=== PATIENT | male | born 1955 | race Caucasian/White ===

== ENCOUNTER 2020-12-23 09:21 | Outpatient (CLI) | payer BC, SELFPAY ==
--- NOTE | 2020-12-23 09:46 | ECG_ITS ---
Measurements Intervals [place] Rate: 65 P: 47 [place]: 140 QRS: -39 QRSD: 118 T: 56 QT: 404 QTc: 421 Interpretive Statements SINUS RHYTHM VENTRICULAR PREMATURE COMPLEXES LEFT AXIS DEVIATION INTRAVENTRICULAR CONDUCTION DELAY BORDERLINE ST-T WAVE ABNORMALITY- HIGH LATERAL LEADS BORDERLINE ECG Electronically Signed On 12-23-2020 11:16:06 SALES SUPPORT ENGINEER by Kt Simmons D.O.
[2020-12-23 10:03] LABS: Hematocrit 50.1 % (42.0-52.0); Hemoglobin 16.9 g/dL (14.0-18.0); Mean Corpuscular HGB Conc 33.7 g/dl (32-36); Mean Corpuscular Hemoglobin 32.8 pg (26-34); Mean Corpuscular Volume 97.3 fl (80-100); Platelet Count Result 186 k/mm3 (150-375); Red Blood Count 5.15 M/mm3 (4.6-6.20); Red Cell Distribution Width 15.2 % (11.5-14.5); White Blood Count 4.9 K/mm3 (4.5-10.0)
[2020-12-23 10:13] LABS: Alanine Aminotransferase 34 U/L (4-50); Alkaline Phosphatase 48 U/L (38-126); Anion Gap 4 mmol/L (8-16); Aspartate Amino Transferase 37 U/L (17-59); Bilirubin,Total 0.5 mg/dL (0.2-1.3); Blood Urea Nitrogen 22 mg/dL (9-20); Calcium 9.2 mg/dL (8.4-10.2); Carbon Dioxide 32 mmol/L (22-30); Chloride 108 mmol/L (98-107); Cholesterol 183 mg/dL (0-200); Estimated Glomerular Filt Rate 55; Glucose 103 mg/dL (75-110); HDL Direct 50 mg/dL; Potassium 4.4 mmol/L (3.4-5.0); Sodium 144 mmol/L (137-145); Triglycerides 104 mg/dL (<150)
[2020-12-23 10:16] LABS: Rheumatoid Factor < 8.6 IU/ML (<12)
[2020-12-23 10:24] LABS: LDL Cholesterol Direct 105 mg/dL
[2020-12-23 10:34] LABS: Erythrocyte Sedimentation Rate 1 mm/hr (0-20)
[2020-12-23 10:43] LABS: Prostate Specific Antigen 0.9 ng/mL (< OR = 4.0)
== END 2020-12-23 09:22 | disposition home or self-care (01) ==
PROVIDERS: PCP Physician Assistant; Visit Provider Physician Assistant
DX: Z00.00 Encounter for general adult medical examination without abnormal findings (principal); I49.9 Cardiac arrhythmia, unspecified; I10 Essential (primary) hypertension; M25.50 Pain in unspecified joint; Z12.5 Encounter for screening for malignant neoplasm of prostate
CPT/HCPCS: 36415; 80053; 80061; 84153; 84443; 85027; 85652; 86430; 93005; G0103

== ENCOUNTER 2021-06-04 10:57 | Outpatient (CLI) | payer BC, SELFPAY ==
--- NOTE | ~2021-06-04 | XR_ITS ---
XR foot RT min 3V DATE: 06/04/2021 11:32 INDICATION: Generalized right foot pain. No injury. TECHNIQUE: 4 views COMPARISON: None FINDINGS: Prominent plantar and posterior calcaneal enthesopathy. There is osteoarthritis at the first metatarsophalangeal joint. There is mild osteoarthritis at the f ifth metatarsophalangeal joint. There is hallux valgus and bunion deformity. No fracture or dislocation, periosteal reaction or bone destruction is detected. Arterial calcifications noted, particularly at the posterior tibial artery. IMPRESSION: Prominent plantar and posterior calcaneal enthesopathy Hallux valgus and bunion deformity Osteoarthritis Reviewed, dictated and finalized at location A.
== END 2021-06-04 10:58 | disposition home or self-care (01) ==
LOC: ANHIMG 11:22
PROVIDERS: PCP Physician Assistant; Visit Provider Physician Assistant
DX: M79.671 Pain in right foot (principal); M77.31 Calcaneal spur, right foot; M20.11 Hallux valgus (acquired), right foot; M21.611 Bunion of right foot; M19.071 Primary osteoarthritis, right ankle and foot
CPT/HCPCS: 73630

== ENCOUNTER 2021-08-13 08:20 | Outpatient (CLI) | payer BC, SELFPAY ==
--- NOTE | ~2021-08-13 | NM_ITS ---
EXAMINATION: NM lavinia stress w perfusion DATE: 08/13/2021 11:10 INDICATION: Dyspnea on exertion TECHNIQUE: Rest images were obtained following intravenous administration of 10.3 mCi Tc99m tetrofosm in (Myoview). The patient was infused intravenously with Lexiscan (Regadenoson). Then, 31.21 mCi Tc99 m tetrofosmin (Myoview) was administered intravenously, and stress images were obtained in supine pos ition. Additional post stress imaging was obtained in prone position. Data was reconstructed into missael rt axis and horizontal and vertical long axis SPECT images. Gated SPECT images were also obtained. COMPARISON: None. FINDINGS: Nonreversible severe perfusion defect consistent with infarct at the apex. Moderate severit y partially reversible perfusion defect consistent with ischemia superimposed over infarct involving the apical septal, apical superior, mid anteroseptal and mid anterior segments. The ischemia extends additionally into noninfarcted segments including the apical lateral, apical inferior and mid inferio r septal segments. There is moderate enlargement of the left ventricle with calculated end-diastolic volume of 243 mL. There is diffuse hypokinesis throughout the left ventricle with dyskinesis at the a pex. Moderate to severely decreased left ventricular ejection fraction measuring 24%. IMPRESSION: 1. Large region of ischemia partially superimposed over a moderate-sized region of infarct involving primarily the left anterior descending coronary artery vascular distribution. 2. Moderate left ventricular enlargement and diffuse hypokinesis with apical dyskinesis resulting in a moderate to severely decreased left ventricular ejection fraction measuring 24%. Reviewed, dictated and finalized at location A. IMPRESSION: 1. Large region of ischemia partially superimposed over a moderate-sized region of infarct involving primarily the left anterior descending coronary artery va scular distribution. 2. Moderate left ventricular enlargement and diffuse hypokinesis with apical dy skinesis resulting in a moderate to severely decreased left ventricular ejectio n fraction measuring 24%.
--- NOTE | 2021-08-13 08:45 | EST_ITS ---
Patient Info Name: Sam Colby Age: 66 years : 1955 Gender: Male Ht: 73 in Wt: 244 lbs BSA: 2.42 m2 HR: 77 bpm BP: 142 / 104 mmHg Heart Rhythm: Sinus Rhythm Exam Date: 08/13/2021 9:34 AM Exam Location: [facility] Stress Patient Status: Outpatient Admit Date: 08/13/2021 Staff Ordering Physician: Emilio Lamb DO Attending Provider: Emilio Lamb DO Referring Physician: Rudy Cruz MD; Exercise Technologist: Olga Lidia Lugo CT Exercise Physician: Kt Simmons DO Exam Type: CA stress lavinia w NM Study Info Indications R07.9 - Chest pain, unspecified R06.02 - Shortness of breath A regadenoson stress test was performed. Summary 1. 1. Negative lexiscan stress test for ischemic ST changes by ECG criteria. 2. 2. Frequent ventricular ectopics. 3. 3. Baseline hypertension. 4. 4. Nuclear scan to follow and will be reported separately. Please correlate with it. 5. 5. Patient informed of the above results. Protocol: Lexiscan Stress ECG Details Stage: REST Duration (min): 0 min : 57 sec HR (bpm): 63 SBP (mmHg): 142 DBP (mmHg): 104 Stage: REST Duration (min): 8 min : 31 sec HR (bpm): 70 SBP (mmHg): 142 DBP (mmHg): 104 Stage: STAGE 1 Duration (min): 1 min : 0 sec HR (bpm): 77 SBP (mmHg): 142 DBP (mmHg): 104 Stage: RECOVERY Duration (min): 1 min : 0 sec HR (bpm): 88 SBP (mmHg): 192 DBP (mmHg): 76 Stage: RECOVERY Duration (min): 2 min : 0 sec HR (bpm): 81 SBP (mmHg): 192 DBP (mmHg): 76 Stage: RECOVERY Duration (min): 3 min : 0 sec HR (bpm): 79 SBP (mmHg): 192 DBP (mmHg): 76 Stage: RECOVERY Duration (min): 3 min : 51 sec HR (bpm): 75 SBP (mmHg): 154 DBP (mmHg): 91 Rest HR: 70 bpm Peak HR: 91 bpm Rest Sys BP: 142 mmHg Peak Sys BP: 192 mmHg Max Pred HR: 152 bpm % Max Pred HR: 60 % Target HR: 129 bpm Max RPP: 17,472 bpm*mmHg Termination Reason: Completed protocol Cardiac Symptoms: Shortness of breath Total Time: 1 min : 0 sec Rest Sawyer BP: 104 mmHg Peak Sawyer BP: 76 mmHg Total Dose: 0.4 mg Resting ECG Sinus rhythm with frequent PVC's, cannot r/o septal infarct, age indeterminate. Stress ECG No ST changes. Arrhythmias None. Report Signatures
== END 2021-08-13 08:21 | disposition home or self-care (01) ==
PROVIDERS: PCP Physician Assistant; Referring Provider Physical Medicine & Rehabilitation Pain Medicine; Visit Provider Internal Medicine
DX: R06.02 Shortness of breath (principal); R07.9 Chest pain, unspecified
CPT/HCPCS: 78452; 93017; A9502; J2785

== ENCOUNTER 2021-08-15 12:53 | Outpatient (CLI) | payer BC, SELFPAY ==
[2021-08-15 13:13] LABS: Hematocrit 49.7 % (42.0-52.0); Hemoglobin 17.3 g/dL (14.0-18.0); Mean Corpuscular HGB Conc 34.8 g/dl (32-36); Mean Corpuscular Hemoglobin 33.4 pg (26-34); Mean Corpuscular Volume 95.9 fl (80-100); Mean Platelet Volume 9.6 fl (7.4-10.4); Platelet Count Result 190 k/mm3 (150-375); Red Blood Count 5.18 M/mm3 (4.6-6.20); Red Cell Distribution Width 13.7 % (11.5-14.5); White Blood Count 6.2 K/mm3 (4.5-10.0)
[2021-08-15 13:28] LABS: INR 0.9; Prothrombin Time 12.5 Seconds (11.1-14.7)
[2021-08-15 13:29] LABS: Partial Thromboplastin Time 26.2 SECONDS (22.3-36.8)
[2021-08-15 13:30] LABS: Anion Gap 6 mmol/L (8-16); Blood Urea Nitrogen 18 mg/dL (9-20); Calcium 9.8 mg/dL (8.4-10.2); Carbon Dioxide 27 mmol/L (22-30); Chloride 104 mmol/L (98-107); Estimated Glomerular Filt Rate 55; Glucose 100 mg/dL (65-110); Potassium 4.6 mmol/L (3.4-5.0); Sodium 137 mmol/L (137-145)
== END 2021-08-15 12:54 | disposition home or self-care (01) ==
PROVIDERS: PCP Physician Assistant
DX: I25.10 Atherosclerotic heart disease of native coronary artery without angina pectoris (principal)
CPT/HCPCS: 36415; 80048; 85027; 85610; 85730

== ENCOUNTER 2021-10-27 07:15 | Outpatient (RCR) | payer BC, SELFPAY ==
[2021-10-21 16:01] VITALS: PULSE 63
== END 2021-11-17 15:20 | disposition home or self-care (01) ==
LOC: ANHCPREHAB 07:15
PROVIDERS: PCP Physician Assistant
DX: Z95.1 Presence of aortocoronary bypass graft (principal)
CPT/HCPCS: 93798

== ENCOUNTER → 2022-05-30 11:06 | Outpatient (CLI) | payer MEDICARE, SELFPAY ==
--- NOTE | ~2022-05-30 | MR_ITS ---
EXAMINATION: MR cervical spine wo con DATE: 05/30/2022 12:08 INDICATION: Cervical radiculopathy. Chronic neck pain. TECHNIQUE: Magnetic resonance imaging (MRI) of the cervical spine was performed without intravenous c ontrast. Sequences included sagittal T2-weighted FSE, sagittal T2-weighted FS FSE, sagittal T1-weight ed FSE, axial MERGE, and axial T2-weighted FSE. COMPARISON: None FINDINGS: There is kyphosis of cervical spine. There is 4 degrees dextrocurvature of cervical spine. There is 3 mm anterolisthesis of C4 on C5 and C5 on C6. Vertebral body heights are normal. There is m ildly decreased disc height at C2-C3 with interbody fusion. There is mildly decreased disc height at C4-C5. There is mildly decreased disc height at C5-C6 and severely decreased disc height at C6-C7 wit h interbody fusion. There is severely decreased disc height at C7-T1 with endplate remodeling. The sp inal cord signal intensity is normal. The following disc levels are specifically discussed: C2-C3: The disc does not extend beyond the endplate margin. There is ankylosis of the uncovertebral j oints with mild hypertrophy. There is moderate right facet joint osteoarthritis. There is ankylosis o f left facet joint with mild hypertrophy There is no neural foraminal stenosis. There is no central c anal stenosis. C3-C4: The disc is bulging. There is mild bilateral uncovertebral joint osteoarthritis. There is giovanni re bilateral facet joint osteoarthritis. There is mild bilateral neural foraminal stenosis. There is mild central canal stenosis. C4-C5: The disc is bulging. There is mild right and moderate left uncovertebral joint osteoarthritis. There is moderate right and severe left facet joint osteoarthritis. There is mild right and moderate left neural foraminal stenosis. There is mild central canal stenosis with ventral indentation of the spinal cord. C5-C6: The disc does not extend beyond the endplate margin. There is mild bilateral uncovertebral gabi nt hypertrophy. There is moderate left facet joint osteoarthritis. There is mild left neural foramina l stenosis. There is mild central canal stenosis with ventral indentation of the spinal cord. C6-C7: The disc does not extend beyond the endplate margin. There is mild bilateral uncovertebral gabi nt hypertrophy. There is mild bilateral facet joint osteoarthritis. There is mild bilateral neural fo raminal stenosis. There is no central canal stenosis. C7-T1: The disc is bulging. There is severe bilateral uncovertebral joint osteoarthritis. There is se wilfred right and moderate left facet joint osteoarthritis. There is moderate bilateral neural foraminal stenosis. There is mild central canal stenosis. IMPRESSION: 1. Severe cervical spondylosis. 2. Interbody fusion at C2-C3, C5-C6, and C6-C7. Reviewed, dictated and finalized at location A.
== END ==
PROVIDERS: PCP Physician Assistant; Visit Provider Physical Medicine & Rehabilitation
DX: M47.22 Other spondylosis with radiculopathy, cervical region (principal); Z98.1 Arthrodesis status
CPT/HCPCS: 72141

== ENCOUNTER 2022-06-11 10:32 | Outpatient (CLI) | payer MEDICARE, SELFPAY ==
[2022-06-11 11:11] LABS: Alanine Aminotransferase 48 U/L (6-50); Albumin Level 4.5 g/dL (3.5-5.1); Alkaline Phosphatase 77 U/L (38-126); Anion Gap 8 mmol/L (8-16); Aspartate Amino Transferase 39 U/L (17-59); Blood Urea Nitrogen 20 mg/dL (9-20); Calcium 9.4 mg/dL (8.4-10.2); Carbon Dioxide 29 mmol/L (22-30); Chloride 102 mmol/L (98-107); Cholesterol 153 mg/dL (0-200); Estimated Glomerular Filt Rate 60; Glucose 112 mg/dL (65-110); HDL Direct 44 mg/dL; Potassium 4.6 mmol/L (3.4-5.0); Sodium 139 mmol/L (137-145); Triglycerides 162 mg/dL (<150)
[2022-06-11 11:18] LABS: LDL Cholesterol Direct 63 mg/dL
[2022-06-11 11:23] LABS: Basophils Absolute Auto 0.1 K/mm3 (0.0-0.1); Basophils Percent Auto 0.7 % (0.2-1.2); Eosinophils Absolute Auto 0.2 K/mm3 (0-0.3); Eosinophils Percent Auto 2.8 % (0-4.4); Hematocrit 48.6 % (42.0-52.0); Hemoglobin 16.8 g/dL (14.0-18.0); Immature Granulocyte Absolute 0.01 K/mm3 (0.00-0.031); Immature Granulocyte Percent A 0.1 % (0-0.5); Lymphocytes Absolute Auto 2.85 K/mm3 (0.9-3.2); Mean Corpuscular HGB Conc 34.6 g/dl (32-36); Mean Corpuscular Hemoglobin 34.3 pg (26-34); Mean Corpuscular Volume 99.2 fl (80-100); Mean Platelet Volume 10.1 fl (7.4-10.4); Monocytes Absolute Auto 0.8 K/mm3 (0.1-0.6); Monocytes Percent Auto 10.4 % (2.6-8.5); Neutrophils Absolute Auto 3.6 K/mm3 (1.3-6.7); Platelet Count Result 220 k/mm3 (150-375); Red Cell Distribution Width 13.4 % (11.5-14.5); White Blood Count 7.5 K/mm3 (4.5-10.0)
[2022-06-11 14:04] LABS: Folic Acid 19.1 ng/mL (2.76->20)
== END 2022-06-11 10:33 | disposition home or self-care (01) ==
LOC: ANHLAB 10:34
PROVIDERS: PCP Physician Assistant; Visit Provider Physician Assistant
DX: R53.83 Other fatigue (principal); E78.5 Hyperlipidemia, unspecified; Z12.5 Encounter for screening for malignant neoplasm of prostate
CPT/HCPCS: 36415; 80053; 80061; 82607; 82746; 84153; 84443; 85025; G0103

== ENCOUNTER 2022-07-20 10:32 | Outpatient (CLI) | payer MEDICARE, SELFPAY ==
--- NOTE | ~2022-07-20 | XR_ITS ---
XR hip RT min 2V 07/20/2022 10:48 Indication: Right hip pain Procedure: 2 views right hip Comparison: No prior studies for comparison. Findings: There is moderate osteoarthritis of the right hip. No fracture, subluxation or dislocation. No significant soft tissue abnormality. No foreign bodies. Impression: 1: Moderate osteoarthritis of the right hip. Reviewed, dictated and finalized at location B. Impression: 1: Moderate osteoarthritis of the right hip.
== END 2022-07-20 10:33 | disposition home or self-care (01) ==
LOC: ANHIMG 10:37
PROVIDERS: PCP Physician Assistant; Visit Provider Physician Assistant
DX: M16.11 Unilateral primary osteoarthritis, right hip (principal)
CPT/HCPCS: 73502

== ENCOUNTER 2022-09-11 10:13 | Outpatient (CLI) | payer MEDICARE, SELFPAY ==
--- NOTE | ~2022-09-11 | NM_ITS ---
EXAMINATION: NM lavinia stress w perfusion DATE: 09/11/2022 13:41 INDICATION: Old myocardial infarction. TECHNIQUE: Rest images were obtained following intravenous administration of 9 mCi Tc99m tetrofosmin (Myoview). The patient was infused intravenously with Lexiscan (regadenoson). Then, 27 mCi Tc99m tetr ofosmin (Myoview) was administered intravenously, and stress images were obtained. Data was reconstru cted into short axis and horizontal and vertical long axis SPECT images. Gated SPECT images were also obtained. COMPARISON: Myocardial perfusion imaging 08/13/2021 FINDINGS: There is no definite reversible or fixed perfusion abnormality to suggest ischemia or infar ction. There is no segmental wall motion abnormality. Left ventricular ejection fraction measures 3 7%. IMPRESSION: 1. No definite ischemia or infarct. 2. Global hypokinesis with left ventricular ejection fraction measuring 37%. Reviewed, dictated and finalized at location A. RVISOR CD AREA
--- NOTE | 2022-09-11 10:33 | EST_ITS ---
Patient Info Name: Sam Colby Age: 67 years : 1955 Gender: Male Ht: 73 in Wt: 240 lbs BSA: 2.40 m2 Exam Date: 09/11/2022 11:12 AM Exam Location: [facility] Stress Patient Status: Outpatient Admit Date: 09/11/2022 Staff Ordering Physician: Danny Bai PA-C Attending Provider: Danny Bai PA-C Exercise Technologist: Jacki May RDCS Exam Type: CA stress lavinia w NM Study Info Indications I25.2 - OLD MYOCARDIAL INFARCTION A regadenoson stress test was performed. Summary 1. 1. Negative lexiscan stress test for ischemic ST changes by ECG criteria. 2. 2. Stable hemodynamics throughout the test. 3. 3. Nuclear scan to follow and will be reported separately. Please correlate with it. 4. 4. Patient informed of the above results. Protocol: Lexiscan Stress ECG Details Stage: REST Duration (min): 0 min : 46 sec HR (bpm): 68 SBP (mmHg): 137 DBP (mmHg): 99 Stage: REST Duration (min): 17 min : 32 sec HR (bpm): 67 SBP (mmHg): 137 DBP (mmHg): 99 Stage: STAGE 1 Duration (min): 1 min : 0 sec HR (bpm): 73 SBP (mmHg): 173 DBP (mmHg): 122 Stage: RECOVERY Duration (min): 1 min : 0 sec HR (bpm): 82 SBP (mmHg): 139 DBP (mmHg): 113 Stage: RECOVERY Duration (min): 2 min : 0 sec HR (bpm): 75 SBP (mmHg): 147 DBP (mmHg): 114 Stage: RECOVERY Duration (min): 3 min : 0 sec HR (bpm): 76 SBP (mmHg): 147 DBP (mmHg): 114 Stage: RECOVERY Duration (min): 3 min : 32 sec HR (bpm): 76 SBP (mmHg): 134 DBP (mmHg): 94 Rest HR: 67 bpm Peak HR: 84 bpm Rest Sys BP: 137 mmHg Peak Sys BP: 173 mmHg Max Pred HR: 151 bpm % Max Pred HR: 56 % Target HR: 128 bpm Max RPP: 14,532 bpm*mmHg Termination Reason: Completed protocol Cardiac Symptoms: Shortness of breath Total Time: 1 min : 0 sec Rest Sawyer BP: 99 mmHg Peak Sawyer BP: 122 mmHg Total Dose: 0.4 mg Resting ECG Sinus rhythm, ventricular bigeminy. Stress ECG No ST changes. Arrhythmias None. Report Signatures
== END 2022-09-11 10:14 | disposition home or self-care (01) ==
PROVIDERS: PCP Physician Assistant; Visit Provider Physician Assistant
DX: I25.2 Old myocardial infarction (principal)
CPT/HCPCS: 78452; 93017; A9502; J2785

== ENCOUNTER 2023-01-26 14:46 | Outpatient (CLI) | payer MEDICARE, SELFPAY ==
--- NOTE | 2023-01-26 14:59 | ECHO_ITS ---
Patient Info Name: Sam Colby Age: 67 years : 1955 Gender: Male Ht: 73 in Wt: 250 lbs BSA: 2.45 m2 HR: 81 bpm BP: 169 / 115 mmHg Technical Quality: Fair Exam Date: 01/26/2023 3:13 PM Exam Location: [facility] Patient Status: Outpatient Admit Date: 01/26/2023 Staff Ordering Physician: Kt Simmons DO Marketing Account Executive: Juli Pedersen RDCS Attending Provider: Kt Simmons DO Referring Physician: Troy SCHWARZ; Exam Type: CA echo doppler color flow Study Info Indications - Atherosclerosis of coronary artery bypass graft.... Complete two-dimensional, color flow and Doppler transthoracic echocardiogram is performed. Summary 1. Complete two-dimensional, color flow and Doppler transthoracic echocardiogram is performed. 2. Left ventricular chamber dimension is normal. 3. Left ventricular systolic function is mildly globally reduced, estimated at 45-50%. 4. There is moderate concentric increased left ventricular wall thickness. 5. Left ventricular septal wall motion is abnormal with septal motion related to bundle branch block. 6. The left ventricular diastolic function is grade I diastolic dysfunction. 7. E/e' 9 is minimally elevated. 8. Right ventricular systolic function is mildly reduced and based on abnormal TAPSE 1.6 cm. 9. There is mild aortic valve sclerosis. 10. There is trace aortic valve regurgitation. 11. There is trace mitral valve regurgitation. 12. There is trace tricuspid valve regurgitation. 13. No pulmonary hypertension, estimated pulmonary arterial systolic pressure is 24 mmHg. Left Ventricle E/e' 9 is minimally elevated. Left ventricular chamber dimension is normal. Left ventricular systolic function is mildly globally reduced, estimated at 45-50%. There is moderate concentric increased left ventricular wall thickness. Left ventricular septal wall motion is abnormal with septal motion related to bundle branch block. The left ventricular diastolic function is grade I diastolic dysfunction. Right Ventricle Right ventricular chamber dimension is normal. Right ventricular systolic function is mildly reduced and based on abnormal TAPSE 1.6 cm. Left Atria Left atrial chamber dimension is mildly enlarged. Right Atria Right atrial chamber dimension is normal. Aortic Valve The aortic valve is trileaflet. There is mild aortic valve sclerosis. There is no aortic valve stenosis. There is trace aortic valve regurgitation. Pulmonic Valve There is no pulmonic regurgitation. Mitral Valve There is no mitral valve stenosis. There is trace mitral valve regurgitation. Tricuspid Valve There is trace tricuspid valve regurgitation. No pulmonary hypertension, estimated pulmonary arterial systolic pressure is 24 mmHg. Pericardium/Pleural There is no pericardial effusion. Inferior Vena Cava Normal inferior vena cava with >50% collapse upon inspiration consistent with normal right atrial pressure, 5 mmHg. Aorta The aortic root size at the sinus of Valsalva is normal. Left Ventricular Outflow Tract Name Value Normal LVOT 2D LVOT Diameter 2.7 cm LVOT Doppler LVOT
== END 2023-01-26 14:47 | disposition home or self-care (01) ==
PROVIDERS: PCP Physician Assistant; Visit Provider Internal Medicine Cardiovascular Disease
DX: I25.810 Atherosclerosis of coronary artery bypass graft(s) without angina pectoris (principal)
CPT/HCPCS: 93306

== ENCOUNTER 2023-02-08 08:32 | Outpatient (CLI) | payer MEDICARE, SELFPAY ==
--- NOTE | 2023-03-06 15:56 | WPDSLEEPSTUD ---
Sleep Study Date of Study: 02/08/23 Ordering Provider: Kt Simmons DO Interpreting Physician: Taniya Pearl DO Sleep Study Type: Split Polysomnogram Height: 1.75 m Weight: 112.945 kg Body Mass Index: 36.7 Neck Circumference (inches): 19.5 [place]: 9 Reason for Sleep Study Daytime hypersomnia Sleep History The patient is a 67-year-old male with asthma, GERD, hypertension, hyperlipidemia, coronary artery disease, history of CABG x 3, PVCs and obesity that had a sleep study ordered by his hospice clinical marketer for evaluation of sleep apnea. The patient is currently retired. He rarely awakens from sleep short of breath. He occasionally awakens at night with heartburn, belching or cough. He occasionally snores but it is rarely loud enough that others complain. He constantly has trouble sleeping when he has a cold. He occasionally wakes up gasping for air throughout the night. He occasionally has breathing problems at night observed by himself or others. He rarely sweats excessively at night. He rarely has heart palpitations or irregular heartbeats during the night. He frequently falls asleep during the day but never while driving. He denies sleep paralysis. He denies having trouble at school or work due to sleepiness. He rarely feels unable to move while waking up or falling asleep. He occasionally experiences vivid dreamlike scenes upon awakening or falling asleep. He denies feeling afraid of going to sleep. He occasionally has nightmares. He occasionally remembers his dreams. He denies having thoughts racing through his mind. He denies feeling sad or depressed. He denies having anxiety. He denies having muscular tension. He occasionally notices parts of his body jerk. He rarely kicks during the night. He frequently has crawling and aching feelings in his legs and occasionally has leg pain during the night. Denies grinding his teeth during sleep and denies awakening with morning jaw pain. He is constantly bothered by pain during the day and constantly awakened by pain during the night. He frequently wakes up feeling stiff in the morning. He frequently wakes up with sore or achy muscles. He frequently wakes up with pain in the neck, spine or other joints. He goes to bed at 10:00 p.m. on both weekdays and weekends. The amount of time it takes for him to fall asleep is variable. He wakes up 2-3 times throughout the night to urinate and is able to fall back asleep within a few minutes. He wakes up between 6-7 a.m. on both weekdays and weekends. He typically gets 8-9 of sleep per night. He will stay in bed for 2 minutes after waking up in the morning. He currently lives alone. He he will consume caffeinated beverages within 2 hours of bedtime. He will engage in physical exercise before bedtime. He will read and watch television before falling asleep. He will take naps in the afternoon or the evening but it is not refreshing. He drinks 2 cups of caffeinated beverage per day. He consumes very little alcohol. He denies past or current tobacco use. He currently uses an unspecified recreational drugs. 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
[2023-03-06 16:04] VITALS: BMI 36.7
== END 2023-02-09 07:30 | disposition home or self-care (01) ==
LOC: ANHCSM 08:33
PROVIDERS: PCP Physician Assistant; Visit Provider Internal Medicine Cardiovascular Disease
DX: G47.10 Hypersomnia, unspecified (principal)
CPT/HCPCS: 95811

== ENCOUNTER 2023-05-20 08:02 | Outpatient (CLI) | payer MEDICARE, SELFPAY ==
[2023-05-20 08:45] LABS: Alanine Aminotransferase 38 U/L (6-50); Albumin Level 4.1 g/dL (3.5-5.1); Alkaline Phosphatase 64 U/L (38-126); Anion Gap 10 mmol/L (8-16); Aspartate Amino Transferase 38 U/L (17-59); Bilirubin,Total 0.7 mg/dL (0.2-1.3); Blood Urea Nitrogen 28 mg/dL (9-20); Calcium 9.2 mg/dL (8.4-10.2); Carbon Dioxide 22 mmol/L (22-30); Chloride 105 mmol/L (98-107); Cholesterol 168 mg/dL (0-200); Estimated Glomerular Filt Rate 55; Glucose 103 mg/dL (65-110); HDL Direct 45 mg/dL; Sodium 137 mmol/L (137-145); Triglycerides 287 mg/dL (<150)
[2023-05-20 08:56] LABS: LDL Cholesterol Direct 56 mg/dL
== END 2023-05-20 08:03 | disposition home or self-care (01) ==
PROVIDERS: PCP Physician Assistant; Visit Provider Internal Medicine Cardiovascular Disease
DX: E78.5 Hyperlipidemia, unspecified (principal)
CPT/HCPCS: 36415; 80053; 80061

== ENCOUNTER 2023-05-20 09:15 | Outpatient (CLI) | payer MEDICARE, SELFPAY ==
--- NOTE | ~2023-05-20 | XR_ITS ---
Left Hand Technique: PA, oblique, and lateral views were obtained. Clinical History: Pain Findings: No acute fracture or dislocation is seen. There is moderate degenerative change at the seco nd and third metacarpophalangeal joints. There is mild degenerative change at the second and third PI P and DIP joints. Soft tissues are unremarkable. Impression: Degenerative changes, predominantly affecting the second and third digits, as above. Reviewed, dictated and finalized at location M. Impression: Degenerative changes, predominantly affecting the second and third digits, as a brian.
== END 2023-05-20 09:16 ==
PROVIDERS: PCP Physician Assistant; Visit Provider Physical Medicine & Rehabilitation
DX: M79.642 Pain in left hand (principal)
CPT/HCPCS: 73130

== ENCOUNTER 2023-06-17 13:42 | Outpatient (CLI) | payer MEDICARE, SELFPAY ==
--- NOTE | ~2023-06-17 | XR_ITS ---
EXAMINATION: XR chest 2V 06/17/2023 13:55 INDICATION: Dyspnea PROCEDURE: 2 view chest COMPARISON: 07/19/2015 FINDINGS: The lungs are clear. Status post median sternotomy for CABG. The cardiomediastinal silhouet te is within normal limits. There are no pleural effusions. There is no pneumothorax suspected. Th ere is a left shoulder arthroplasty. IMPRESSION: 1: NO ACUTE CARDIOPULMONARY DISEASE. Reviewed, dictated and finalized at location L.
== END 2023-06-17 13:43 ==
PROVIDERS: PCP Physician Assistant; Visit Provider Nurse Practitioner Family
DX: R06.00 Dyspnea, unspecified (principal); R05.9 Cough, unspecified
CPT/HCPCS: 71046

== ENCOUNTER 2023-11-17 07:09 | Outpatient (CLI) | payer MEDICARE, SELFPAY | END 2023-11-17 07:10 | disposition home or self-care (01) | LOC: ANHLAB 07:10 | PROVIDERS: PCP Physician Assistant; Visit Provider Nurse Practitioner Family | DX: M25.50 Pain in unspecified joint (principal); G47.61 Periodic limb movement disorder | CPT/HCPCS: 36415; 82728 ==

== ENCOUNTER 2023-11-17 13:46 | Outpatient (CLI) | payer MEDICARE, SELFPAY ==
--- NOTE | 2023-11-17 13:49 | ECHO_ITS ---
Patient Info Name: Sam Colby Age: 68 years : 1955 Gender: Male Ht: 73 in Wt: 243 lbs BSA: 2.41 m2 HR: 64 bpm BP: 150 / 90 mmHg Technical Quality: Fair Exam Date: 11/17/2023 1:54 PM Exam Location: [facility] Patient Status: Outpatient Admit Date: 11/17/2023 Staff Ordering Physician: Kt Simmons DO Attending Provider: Kt Simmons DO Referring Physician: Troy SCHWARZ; Exam Type: CA echo doppler color flow Study Info Indications I25.10 - Atherosclerotic heart disease of [place] coronary artery without angina pectoris Complete two-dimensional, color flow and Doppler transthoracic echocardiogram is performed. Summary 1. Complete two-dimensional, color flow and Doppler transthoracic echocardiogram is performed. 2. Left ventricular chamber dimension is mildly enlarged. 3. Left ventricular systolic function is mildly reduced, estimated at 45-50%. 4. There is mild concentric increased left ventricular wall thickness. 5. The left ventricular diastolic function is grade I diastolic dysfunction. 6. E/e' 7 is not elevated. 7. There is mild aortic valve sclerosis. 8. The mitral valve has mildly calcified annulus. 9. There is trace tricuspid valve regurgitation. 10. RVSP is not calculated due to an inadequate TR jet. Left Ventricle E/e' 7 is not elevated. Left ventricular chamber dimension is mildly enlarged. Left ventricular systolic function is mildly reduced, estimated at 45-50%. There is mild concentric increased left ventricular wall thickness. The left ventricular diastolic function is grade I diastolic dysfunction. Right Ventricle Right ventricular chamber dimension is normal. Right ventricular systolic function is normal. Left Atria Left atrial chamber dimension is normal. Right Atria Right atrial chamber dimension is normal. Aortic Valve The aortic valve is trileaflet. There is mild aortic valve sclerosis. There is no aortic valve stenosis. There is no aortic valve regurgitation. Pulmonic Valve There is no pulmonic regurgitation. Mitral Valve The mitral valve has mildly calcified annulus. There is no mitral valve stenosis. There is no mitral valve regurgitation. Tricuspid Valve There is trace tricuspid valve regurgitation. RVSP is not calculated due to an inadequate TR jet. Pericardium/Pleural There is no pericardial effusion. Inferior Vena Cava Normal inferior vena cava with >50% collapse upon inspiration consistent with normal right atrial pressure, 5 mmHg. Aorta The aortic root size at the sinus of Valsalva is normal. Left Ventricular Outflow Tract Name Value Normal LVOT 2D LVOT Diameter 2.2 cm LVOT Doppler LVOT Peak Gradient 3 mmHg LVOT Mean Gradient 2 mmHg LVOT VTI 20 cm LVOT VTI/AV VTI Ratio 0.7 LVOT Stroke Volume 77 ml LVOT CO 5.9 l/min LVOT CI 2.5 l/min/m2 Pulmonic Valve Name Value Normal
== END 2023-11-17 13:47 | disposition home or self-care (01) ==
PROVIDERS: PCP Physician Assistant; Visit Provider Internal Medicine Cardiovascular Disease
DX: I25.810 Atherosclerosis of coronary artery bypass graft(s) without angina pectoris (principal)
CPT/HCPCS: 93306

== ENCOUNTER 2023-12-20 08:07 | Outpatient (CLI) | payer MEDICARE, SELFPAY ==
--- NOTE | ~2023-12-20 | US_ITS ---
EXAMINATION: US art doppler w press LE BI DATE: 12/20/2023 08:59 INDICATION: Peripheral vascular disease, unspecified. TECHNIQUE: Segmental pressures and plethysmographic and Doppler waveforms of the brachial and lower e xtremity arteries were obtained. COMPARISON: None. FINDINGS: Right and left brachial artery pressures of 98 mm Hg and 99 mm Hg, respectively, are concordant (norm al difference <= 30 mmHg). The right high-thigh pressure index is 1.69 (normal > 1.2). The right ankle-brachial index (BALDEMAR) coul d not be measured due to inability to cuff occlude the arteries (normal >= 0.9-1.0). The right great toe-brachial index (TBI) is 0.62 (normal >= 0.65). Arterial Doppler waveforms are at least triphasic from common femoral artery to the ankle. The left high-thigh pressure index is 1.55. The left BALDEMAR is 1.34. The left TBI is 0.15. Arterial Dopp ler waveforms are at least triphasic from common femoral artery to the ankle. IMPRESSION: 1. Decreased TBIs, nondiagnostic right BALDEMAR, and normal left BALDEMAR, consistent with arterial occlusive d isease. Note that ABIs may be overestimated if arteries are calcified. Reviewed, dictated and finalized at location A. NESS INTELLIGENCE ADMINISTRATOR IMPRESSION: 1. Decreased TBIs, nondiagnostic right BALDEMAR, and normal left BALDEMAR, consistent wit h arterial occlusive disease. Note that ABIs may be overestimated if arteries a re calcified.
== END 2023-12-20 08:08 | disposition home or self-care (01) ==
PROVIDERS: PCP Physician Assistant; Visit Provider Internal Medicine Cardiovascular Disease
DX: I73.9 Peripheral vascular disease, unspecified (principal)
CPT/HCPCS: 93923

== ENCOUNTER 2024-03-20 23:07 | Emergency (ER) | payer MEDICARE, SELFPAY ==
--- NOTE | ~2024-03-20 | CT_ITS ---
Non-contrast CT scan of the Abdomen and Pelvis Clinical indication: Left flank pain Technique: 2.5 mm axial scans were obtained through the abdomen and pelvis without intravenous or or al contrast. Dose reduction technique was used on this scan by utilizing automated exposure control a nd iterative reconstruction technique. The dose-length product (DLP) was 1290.08 mGy-cm. Findings: Images through the lung bases reveal no abnormalities. There is no evidence of renal or ureteral calculi. The kidneys and the ureters are nondilated. The liver, spleen, pancreas, and adrenals appear normal. Tiny gallstones are present. There are ather osclerotic calcifications of the aorta. There is no evidence of bowel obstruction. Sigmoid diverticulosis noted. Images through the pelvis are degraded by streak artifact from bilateral hip arthroplasty. There is n o evidence of ascites or lymphadenopathy. Moderate right inguinal hernia contains mesenteric fat and portion of the urinary bladder. Small fat-containing left inguinal hernia present. Urinary bladder ot herwise appears unremarkable. No pelvic mass evident. Impression: No renal, ureteral, or bladder stone seen, though the distal ureters are obscured by streak artifact from bilateral hip arthroplasty. No hydronephrosis. Moderate right inguinal hernia contains fat and portion of the urinary bladder. Small fat-containing left inguinal hernia. Cholelithiasis. Reviewed, dictated and finalized at location . Impression: No renal, ureteral, or bladder stone seen, though the distal ureters are obscur ed by streak artifact from bilateral hip arthroplasty. No hydronephrosis. Moderate right inguinal hernia contains fat and portion of the urinary bladder. Small fat-containing left inguinal hernia. Cholelithiasis.
--- NOTE | ~2024-03-20 | XR_ITS ---
Clinical Indication: Chest pain PA and lateral views of the chest: Comparison: 06/17/2023 Findings: The lungs are clear, without evidence of focal consolidation or pleural effusion. Cardiome diastinal silhouette is stable, status post median sternotomy. Left shoulder arthroplasty again noted . Impression: Clear lungs. Reviewed, dictated and finalized at location . Impression: Clear lungs.
[2024-03-20 23:18] VITALS: BP 122/87; PULSE 97; RESP 16; TEMP 37; O2SAT 95
--- NOTE | 2024-03-20 23:40 | ECG_ITS ---
SEE SCANNED COPY FOR CONFIRMED REPORT MTDD
--- NOTE | 2024-03-20 23:42 | ED.ABDPAIN ---
HPI - Abdominal Pain General Chief Complaint: Abdominal Pain <GUI Ordaz Filed: 03/21/24 02:31> Stated Complaint: left side pain <GUI Ordaz Filed: 03/21/24 02:31> Time Seen by Provider: 03/20/24 23:14 <GUI Ordaz Last Filed: 03/21/24 02:31> History of Present Illness HPI narrative: 69-year-old male presents to emergency department for left-sided pain that started at 4:00 p.m.. Patient planes to his left flank and left posterior ribs when describing the pain. He states that suddenly started. States it is worse with movement and is unable to identify if it is worse with exertion. Just states whenever he is moving it hurts. He denies fever, cough or congestion, nausea vomiting, abdominal pain, diarrhea, dysuria or hematuria. No prior history of kidney stones. Patient has a history of CAD, hypertension, hyperlipidemia, CABG, COLTON. <GUI Ordaz Last Filed: 03/21/24 02:31> Related Data Home Medications: Home Medications Medication Instructions Recorded Confirmed aspirin 325 mg tablet 325 mg PO BID 09/11/20 03/02/24 lidocaine 5 % topical ointment 1 applic topical DAILY 09/11/20 03/02/24 diclofenac sodium 1 % topical gel 2 g topical QID 10/21/21 03/02/24 multivitamin 1 tablet PO DAILY 10/21/21 03/02/24 omega-3 fatty acids 1,000 mg PO DAILY 10/21/21 03/02/24 furosemide 40 mg tablet 40 mg PO BID 06/17/23 03/02/24 <GUI Ordaz Last Filed: 03/21/24 02:31> Allergies/Adverse Reactions: Allergies Allergy/AdvReac Type Severity Reaction Status Date / Time No Known Allergies Allergy Verified 03/02/24 08:39 <GUI Ordaz Last Filed: 03/21/24 02:31> Review of Systems Review of Systems: CONSTITUTIONAL: Denies fever, chills, or sweats. EYES: Denies visual changes, redness, or discharge. ENT: Denies rhinorrhea, congestion, sore throat, or otalgia. CARDIOVASCULAR: Denies chest pain, palpitations, or edema. RESPIRATORY: Denies cough or dyspnea. GASTROINTESTINAL: See HPI GENITOURINARY: Denies dysuria or hematuria. SKIN: Denies rash or itching. MUSCULOSKELETAL: Denies back pain, joint pain, or myalgia. NEUROLOGIC: Denies headache, numbness, dizziness, or weakness. PSYCHIATRIC: Denies anxiety or depression. <Catherine Pierre PA-C - Last Filed: 03/21/24 02:31> [facility] Surgical History Surgical History: Surgical History History of left shoulder replacement History of total left hip replacement History of total left knee replacement <Catherine Pierre PA-C - Last Filed: 03/21/24 02:31> Family History Family History: Family History Father Cancer Mother Cancer Throat cancer <Catherine Pierre PA-C - Last Filed: 03/21/24 02:31> Social History Social History: Social History Smoking status: Never smoker Second hand tobacco smoke exposure: Yes (when growing up) Alcohol intake: current Alcohol use details: socially Substance use: never Do You Feel Safe in your Home?: Yes Lack of Transportation: No Lack of Food: Never True Current Housing: I Have Housing Concerned About Future Housing: No Difficulty Paying Gas/Electric Bills: No Difficulty Paying for Meds: No Currently Unemployed: No Education: Bachelor's Degree Difficulty w/ Childcare or Family Care: No Occupation/Education: retired Gender identity (if verbalized by the patient): Male <Catherine Pierre PA-C - Last Filed: 03/21/24 02:31> Exam Narrative: GENERAL: Well-appearing, well-nourished, and in no acute distress. HEAD: Normocephalic, atraumatic. EYES: PERRLA and EOMI. ENT: Nares clear, no rhinorrhea or epistaxis. Mucous membranes moist. NECK: Supple. No adenopathy or masses. CHEST:
[2024-03-20 23:44] LABS: Basophils Percent Auto 0.5 % (0.2-1.2); Eosinophils Absolute Auto 0.2 K/mm3 (0-0.3); Eosinophils Percent Auto 2.5 % (0-4.4); Hematocrit 47.3 % (42.0-52.0); Hemoglobin 16.6 g/dL (14.0-18.0); Immature Granulocyte Absolute 0.01 K/mm3 (0.00-0.031); Immature Granulocyte Percent A 0.1 % (0-0.5); Lymphocytes Absolute Auto 2.31 K/mm3 (0.9-3.2); Lymphocytes Percent Auto 28.5 % (18.3-44.2); Mean Corpuscular HGB Conc 35.1 g/dl (32-36); Mean Corpuscular Hemoglobin 35.8 pg (26-34); Mean Corpuscular Volume 101.9 fl (80-100); Mean Platelet Volume 9.7 fl (7.4-10.4); Monocytes Absolute Auto 0.9 K/mm3 (0.1-0.6); Monocytes Percent Auto 10.5 % (2.6-8.5); Neutrophils Absolute Auto 4.7 K/mm3 (1.3-6.7); Neutrophils Percent Auto 57.9 % (45.5-73.1); Platelet Count Result 171 k/mm3 (150-375); Red Blood Count 4.64 M/mm3 (4.6-6.20); Red Cell Distribution Width 13.1 % (11.5-14.5); White Blood Count 8.1 K/mm3 (4.5-10.0)
[2024-03-20 23:58] LABS: Alanine Aminotransferase 36 U/L (6-50); Albumin Level 4.3 g/dL (3.5-5.1); Alkaline Phosphatase 65 U/L (38-126); Anion Gap 9 mmol/L (4-12); Aspartate Amino Transferase 33 U/L (17-59); Blood Urea Nitrogen 15 mg/dL (9-20); Carbon Dioxide 20 mmol/L (22-30); Chloride 107 mmol/L (98-107); Estimated CRCL calculation 66 ml/min; Estimated Glomerular Filt Rate 60; Glucose 103 mg/dL (65-110); Lipase 57 U/L (23-300); Potassium 4.1 mmol/L (3.4-5.0); Prothrombin Time 13.6 Seconds (11.1-14.7); Sodium 136 mmol/L (137-145)
[2024-03-20 23:59] LABS: Partial Thromboplastin Time 27.6 Seconds (22.3-36.8)
[2024-03-21] MEDS: CYCLOBENZAPRINE HCL 10 MG TABLET PO (00:08)
[2024-03-21 00:09] LABS: Troponin I < 0.012 ng/mL (0.000-0.034)
[2024-03-21 00:14] VITALS: BP 134/96; PULSE 92; RESP 16; TEMP 36.6; O2SAT 95
[2024-03-21 00:33] LABS: Appearance Urine Clear (Clear); Bilirubin Urine Negative (Negative); Blood Urine Negative (Negative); Color Urine Yellow (Yellow); Glucose Urine UA Negative (Negative); Ketones Urine Negative (Negative); Leukocyte Esterase Ur Negative LEU/UL (Negative); Nitrate Urine Negative (Negative); Protein Urine Negative (Negative); Specific Grav Ur 1.014 (1.001-1.035)
[2024-03-21 00:34] LABS: Add Urine Microscopic? NO
[2024-03-21] MEDS: HYDROcodone/acetaminophen (*CRX) 5-325 MG TABLET 1 TAB PO (00:53)
[2024-03-21] MEDS: LIDOCAINE 5% PATCH 1 PATCH TRANSDERM (01:05)
[2024-03-21] MEDS: valACYclovir HCL 500 MG TABLET 1000 MG PO (01:50)
[2024-03-21 02:17] VITALS: BP 142/83; PULSE 81; RESP 19; O2SAT 96
[2024-03-21] MEDS: MORPHINE SULFATE (*CRX) 2 MG/ML INJ IV PUSH (02:17)
[2024-03-21 02:52] VITALS: BP 126/94; PULSE 91; RESP 16; O2SAT 95
== END 2024-03-21 02:53 | disposition home or self-care (01) ==
PROVIDERS: Student in an Organized Health Care Education/Training Program; Emergency Provider Physician Assistant; PCP Physician Assistant
DX: K40.20 Bilateral inguinal hernia, without obstruction or gangrene, not specified as recurrent (principal); K57.90 Diverticulosis of intestine, part unspecified, without perforation or abscess without bleeding; K80.20 Calculus of gallbladder without cholecystitis without obstruction; N28.1 Cyst of kidney, acquired; I25.10 Atherosclerotic heart disease of native coronary artery without angina pectoris; I10 Essential (primary) hypertension; E78.5 Hyperlipidemia, unspecified; G47.33 Obstructive sleep apnea (adult) (pediatric); Z95.1 Presence of aortocoronary bypass graft; Z96.612 Presence of left artificial shoulder joint; Z96.642 Presence of left artificial hip joint; Z96.652 Presence of left artificial knee joint; Z77.22 Contact with and (suspected) exposure to environmental tobacco smoke (acute) (chronic); Z79.82 Long term (current) use of aspirin; Z79.899 Other long term (current) drug therapy; I49.3 Ventricular premature depolarization; R94.31 Abnormal electrocardiogram [ECG] [EKG]
CPT/HCPCS: 36415; 71046; 74176; 80053; 81003; 83690; 84484; 85025; 85610; 85730; 93005; 96374; 99284; A9270; J2270

== ENCOUNTER 2024-03-24 13:16 | Emergency (ER) | payer MEDICARE, SELFPAY ==
--- NOTE | ~2024-03-24 | CT_ITS ---
EXAMINATION: CTA chest abdomen pelvis DATE: 03/24/2024 16:00 INDICATION: Left chest and abdominal pain. TECHNIQUE: Computed tomographic angiography (CTA) of the chest, abdomen, and pelvis was performed wit hout and with 100 mL Omnipaque-350 intravenous contrast. Automated exposure control and iterative rec onstruction technique were employed. The dose-length product was 1941.14 mGy-cm. Maximum intensity pr ojection 3D-reconstructions of the aorta and other arteries were constructed by the technologist on a separate workstation. COMPARISON: CT abdomen and pelvis 03/20/2024 FINDINGS: CHEST CTA: The lungs demonstrate mild atelectasis. No pleural effusion. Calcified right hilar and mediastinal ly mph nodes are consistent with old granulomatous disease. Cardiomegaly is noted. There are coronary ar sophia calcifications. There are changes of coronary artery bypass grafting. No pericardial effusion. T here is ectasia of ascending aorta measuring 4.3 cm. Aortic atherosclerosis is noted. There is a tota l left shoulder arthroplasty. There is severe cervical spondylosis and mild thoracic spondylosis. ABDOMEN AND PELVIS CTA: The liver and gallbladder are normal. Calcifications in the spleen are consistent with old granulomat ous disease. The pancreas and adrenal glands are normal. There is cortical thinning of the kidneys. T here is a 5.9 cm cyst in right kidney. There are bilateral inguinal hernias containing fat. There is diverticulosis of the colon without evidence of diverticulitis. There are no dilated loops of bowel. The appendix is normal. There are no pathologically enlarged lymph nodes. There is no free intraperit farias fluid. There are bilateral hip arthroplasties. There is severe lumbar spondylosis. IMPRESSION: 1. No specific etiology for the patient's symptoms. 2. Bilateral inguinal hernias containing fat. Reviewed, dictated and finalized at location A.
--- NOTE | 2024-03-24 13:19 | ECG_ITS ---
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 Measurements Intervals [place] Rate: 94 P: 12 [place]: 155 QRS: -39 QRSD: 117 T: 70 QT: 361 QTc: 453 Interpretive Statements SINUS RHYTHM WITH FREQUENT VENTRICULAR PREMATURE COMPLEXES POSSIBLE LEFT ATRIAL ENLARGEMENT [-0.1mV P-WAVE IN V1/V2] LEFT AXIS DEVIATION [QRS AXIS < -30] MODERATE INTRAVENTRICULAR CONDUCTION DELAY [110+ ms QRS DURATION] No previous ECG available for comparison Electronically Signed On 03-25-2024 14:14:10 CDT by Sade Greenfield M.D.
[2024-03-24 13:21] VITALS: BP 163/118; PULSE 50; RESP 20; TEMP 36.4; O2SAT 97
[2024-03-24 13:41] LABS: Basophils Percent Auto 0.4 % (0.2-1.2); Eosinophils Absolute Auto 0.1 K/mm3 (0-0.3); Eosinophils Percent Auto 0.8 % (0-4.4); Hematocrit 50.1 % (42.0-52.0); Hemoglobin 17.3 g/dL (14.0-18.0); Immature Granulocyte Absolute 0.01 K/mm3 (0.00-0.031); Immature Granulocyte Percent A 0.1 % (0-0.5); Lymphocytes Absolute Auto 2.03 K/mm3 (0.9-3.2); Lymphocytes Percent Auto 23.9 % (18.3-44.2); Mean Corpuscular HGB Conc 34.5 g/dl (32-36); Mean Corpuscular Hemoglobin 35.3 pg (26-34); Mean Corpuscular Volume 102.2 fl (80-100); Mean Platelet Volume 9.7 fl (7.4-10.4); Monocytes Percent Auto 11.8 % (2.6-8.5); Neutrophils Absolute Auto 5.4 K/mm3 (1.3-6.7); Platelet Count Result 185 k/mm3 (150-375); White Blood Count 8.5 K/mm3 (4.5-10.0)
[2024-03-24 13:54] LABS: Appearance Urine Clear (Clear); Bacteria Urine None Seen /hpf; Bilirubin Urine Negative (Negative); Blood Urine Negative (Negative); Color Urine Yellow (Yellow); Glucose Urine UA Negative (Negative); Ketones Urine Trace mg/dL (Negative); Leukocyte Esterase Ur Trace LEU/UL (Negative); Nitrate Urine Negative (Negative); Non Pathogenic Casts 0-2; Protein Urine 1+ mg/dL (Negative); RBC Urine 0-2 /hpf (0-2); Specific Grav Ur 1.014 (1.001-1.035); Squamous Epithelial Cell Urine None Seen /hpf (Few); WBC Urine 0-5 /hpf (0-3)
[2024-03-24 14:01] LABS: Alanine Aminotransferase 22 U/L (6-50); Albumin Level 4.4 g/dL (3.5-5.1); Alkaline Phosphatase 84 U/L (38-126); Anion Gap 8 mmol/L (4-12); Aspartate Amino Transferase 21 U/L (17-59); Bilirubin,Total 1.5 mg/dL (0.2-1.3); Blood Urea Nitrogen 10 mg/dL (9-20); Calcium 9.6 mg/dL (8.4-10.2); Carbon Dioxide 25 mmol/L (22-30); Chloride 104 mmol/L (98-107); Estimated CRCL calculation 78 ml/min; Estimated Glomerular Filt Rate > 60; Glucose 109 mg/dL (65-110); Lipase 25 U/L (23-300); Potassium 4.2 mmol/L (3.4-5.0); Sodium 137 mmol/L (137-145)
[2024-03-24 14:03] LABS: Troponin I 0.014 ng/mL (0.000-0.034)
[2024-03-24 14:15] VITALS: BP 137/97; PULSE 92; RESP 18; O2SAT 97
--- NOTE | 2024-03-24 14:27 | PC.NURSE ---
Pt states that he was here previously and diagnosed with shingles. patient states he didn't think he had a rash or anything, but upon assessment patient has what appears to be a rash with multiple red bumps across his flank area which is where he states a bandage was removed and where the pain starts. patient states it feels like someone is stabbing him with hot pokers.
[2024-03-24 15:00] VITALS: BP 141/90; PULSE 86; RESP 18; O2SAT 94
[2024-03-24 15:08] LABS: Add Urine Microscopic? YES
[2024-03-24] MEDS: MORPHINE SULFATE (*CRX) 4 MG/ML INJ IV PUSH (15:30)
[2024-03-24] MEDS: ONDANSETRON INJ 4 MG/2 ML VIAL IV PUSH (15:30)
[2024-03-24 16:30] VITALS: BP 143/102; PULSE 82; RESP 18; O2SAT 97
[2024-03-24 17:15] VITALS: BP 165/105; PULSE 83; RESP 18; O2SAT 93
--- NOTE | 2024-03-24 17:26 | ED.GENADULT ---
HPI - General Adult General Chief complaint: Abdominal Pain Stated complaint: Flank pain Time Seen by Provider: 03/24/24 14:49 History of Present Illness HPI narrative: This is a 69-year-old male, with history of asthma and recent diagnosis of shingles, who returns to the emergency department complaining of persistent left flank and upper abdominal pain. The patient describes pain as sharp stabbing, rated 8/10 in the same distribution as few days ago when he presented here. This is aggravated by movement or direct pressure. He states he believes he sees a rash on the skin of the left back. He has no other complaints at this time. Related Data Home Medications Medication Instructions Recorded Confirmed aspirin 325 mg tablet 325 mg PO BID 09/11/20 03/02/24 lidocaine 5 % topical ointment 1 applic topical DAILY 09/11/20 03/02/24 diclofenac sodium 1 % topical gel 2 g topical QID 10/21/21 03/02/24 multivitamin 1 tablet PO DAILY 10/21/21 03/02/24 omega-3 fatty acids 1,000 mg PO DAILY 10/21/21 03/02/24 furosemide 40 mg tablet 40 mg PO BID 06/17/23 03/02/24 Allergies Allergy/AdvReac Type Severity Reaction Status Date / Time No Known Allergies Allergy Verified 03/24/24 13:26 Review of Systems Review of Systems: All systems reviewed & are unremarkable except as noted in HPI and below PMFSH Surgical History Surgical History History of left shoulder replacement History of total left hip replacement History of total left knee replacement Family History Family History Father Cancer Mother Cancer Throat cancer Social History Social History Smoking status: Never smoker Second hand tobacco smoke exposure: Yes (when growing up) Alcohol intake: current Alcohol use details: socially Substance use: never Do You Feel Safe in your Home?: Yes Lack of Transportation: No Lack of Food: Never True Current Housing: I Have Housing Concerned About Future Housing: No Difficulty Paying Gas/Electric Bills: No Difficulty Paying for Meds: No Currently Unemployed: No Education: Bachelor's Degree Difficulty w/ Childcare or Family Care: No Occupation/Education: retired Gender identity (if verbalized by the patient): Male Exam Narrative: GENERAL: Well-developed, well-nourished, and in no acute distress. HEAD: Normocephalic, atraumatic. EYES: PERRLA and EOMI. CHEST: Clear to auscultation. No respiratory distress. No wheezes rales or rhonchi HEART: Regular rate and rhythm. No murmur heard. Normal peripheral pulses. ABDOMEN: Soft, nontender, nondistended, normal active bowel sounds. EXTREMITIES: Normal range of motion. No edema. SKIN: Faint erythematous, small vesicular lesions are noted over the back, just left of midline at approximately T10-L1. Skin otherwise warm, dry, no rash. NEURO: Alert and oriented x3. No focal deficit. Moving all 4 limbs spontaneously PSYCH: Normal mood and affect. Course Course Emergency Course: 15:08 - Given the patient's fairly complete workup previously and the worsening of his pain, I feel it is reasonable to escalate his workup to exclude dissection. 17:25 - CTA negative for dissection. CBC unremarkable. Chemistries within normal limits. UA not concerning for UTI. I suspect shingles as the cause of the patient's pain. We will add opioids and lidocaine patches. I discussed the findings and recommendations with the patient. Discussed return and emergency precautions including signs/symptoms of ACS and respiratory distress. The patient voiced understanding and agreement with the plan. All questions answered to his satisfaction. Vital Signs Vital signs: Vital Signs Temperature 97.6 F 03/24/24 13:21 Pulse Rate 50 L 03/24/24 13:21 Respiratory Rate 20 03/24/24 13:21 Blood Pres
== END 2024-03-24 17:38 | disposition home or self-care (01) ==
PROVIDERS: Emergency Medicine; Emergency Provider Preventive Medicine Aerospace Medicine; PCP Physician Assistant
DX: B02.23 Postherpetic polyneuropathy (principal); J45.909 Unspecified asthma, uncomplicated; Z96.612 Presence of left artificial shoulder joint; Z96.642 Presence of left artificial hip joint; Z96.652 Presence of left artificial knee joint; Z77.22 Contact with and (suspected) exposure to environmental tobacco smoke (acute) (chronic); I49.3 Ventricular premature depolarization; R94.31 Abnormal electrocardiogram [ECG] [EKG]; I45.9 Conduction disorder, unspecified
CPT/HCPCS: 36415; 71275; 74174; 80053; 81001; 83690; 84484; 85025; 93005; 96374; 96375; 99284; J2270; J2405; Q9967

== ENCOUNTER 2024-05-08 08:43 | Outpatient (CLI) | payer MEDICARE, SELFPAY ==
[2024-05-08 09:39] LABS: Cholesterol 148 mg/dL (0-200); HDL Direct 52 mg/dL; Triglycerides 164 mg/dL (<150)
[2024-05-08 09:41] LABS: Iron 132 ug/dL (49-181)
[2024-05-08 09:49] LABS: LDL Cholesterol Direct 70 mg/dL
[2024-05-08 09:53] LABS: Percent Iron Saturation 53 % (20-50)
[2024-05-08 10:10] LABS: Prostate Specific Antigen 1.8 ng/mL (< OR = 4.0)
== END 2024-05-08 08:44 | disposition home or self-care (01) ==
LOC: ANHLAB 08:46
PROVIDERS: PCP Internal Medicine; Visit Provider Internal Medicine
DX: Z12.5 Encounter for screening for malignant neoplasm of prostate (principal); E61.1 Iron deficiency; E78.5 Hyperlipidemia, unspecified
CPT/HCPCS: 36415; 80061; 82728; 83540; 83550; 84153; G0103

== ENCOUNTER 2025-03-14 08:25 | Outpatient (CLI) | payer MEDICARE, SELFPAY ==
--- NOTE | 2025-03-14 08:57 | ECHO_ITS ---
Patient Info Name: Sam Colby Age: 70 years : 1955 Gender: Male Ht: 73 in Wt: 250 lbs BSA: 2.45 m2 HR: 66 bpm BP: 189 / 107 mmHg Technical Quality: Fair, Attempted Definity. No RN available for IV. Exam Date: 03/14/2025 9:06 AM Patient Status: O Admit Date: 03/14/2025 Exam Type: CA echo doppler color flow Complete two-dimensional, color flow and Doppler transthoracic echocardiogram is performed. Hourly Shift Manager: Pilar Ibanez Attending Provider: Kt Simmons DO Summary 1. Complete two-dimensional, color flow and Doppler transthoracic echocardiogram is performed. 2. Left ventricular chamber dimension is severely enlarged. 3. Left ventricular systolic function is severely reduced, estimated at 30-35. 4. The left ventricular diastolic function is grade I diastolic dysfunction. 5. E/e' 7 is not elevated. 6. Left atrial chamber dimension is moderately enlarged. 7. Right atrial chamber dimension is moderately enlarged. 8. There is mild aortic valve regurgitation. 9. The mitral valve has a mildly calcified annulus. 10. There is trace mitral valve regurgitation. 11. There is trace tricuspid valve regurgitation. 12. No pulmonary hypertension, estimated pulmonary arterial systolic pressure is 27 mmHg. Left Ventricle E/e' 7 is not elevated. Left ventricular chamber dimension is severely enlarged. Left ventricular systolic function is severely reduced, estimated at 30-35. The left ventricular diastolic function is grade I diastolic dysfunction. Right Ventricle Right ventricular chamber dimension is normal. Right ventricular systolic function is normal and with normal TAPSE 1.9 cm. Left Atria Left atrial chamber dimension is moderately enlarged. Right Atria Right atrial chamber dimension is moderately enlarged. Aortic Valve The aortic valve is trileaflet. There is no aortic valve stenosis. There is mild aortic valve regurgitation. Pulmonic Valve There is no pulmonic regurgitation. Mitral Valve The mitral valve has a mildly calcified annulus. There is no mitral valve stenosis. There is trace mitral valve regurgitation. Tricuspid Valve There is trace tricuspid valve regurgitation. No pulmonary hypertension, estimated pulmonary arterial systolic pressure is 27 mmHg. Pericardium/Pleural There is no pericardial effusion. Inferior Vena Cava Normal inferior vena cava with >50% collapse upon inspiration consistent with normal right atrial pressure, 5 mmHg. Aorta The aortic root size at the sinus of Valsalva is normal. Left Ventricular Outflow Tract Name Value Normal LVOT 2D LVOT Diameter 2.7 cm LVOT Doppler LVOT Peak Velocity 70 cm/s LVOT Peak Gradient 2 mmHg LVOT Mean Gradient 1 mmHg LVOT VTI 15 cm LVOT VTI/AV VTI Ratio 0.7 LVOT Stroke Volume 82 ml LVOT CO 16.8 l/min LVOT CI 6.9 l/min/m2 Pulmonic Valve Name Value Normal PV Doppler PV Peak Velocity 85 cm/s PV Peak Gradient 3 mmHg Mitral Valve Name Value Normal MV Diastolic Function MV E Peak Velocity 43 cm/s MV A Peak Velocity 93 cm/s MV E/A 0.5 MV Decel Time (PW) 330 ms MV Annular TDI MV E/e' (Septal) 8.9 MV E/e' (Lateral) 7.1 MV E/e' (Average) 8.0 Tricuspid Valve Name Value Normal TV Regurgitation Doppler TR Peak Velocity 237 cm/s TR Peak Gradient 22 mmHg Estimated PAP/RSVP RA Pressure 5 mmHg <=5 PA Systolic Pressure 27 mmHg <36 RV Systolic Pressure 27 mmHg <36 TV Annular TDI TV Lateral Valentine s' Velocity 10.4 cm/s >=9.5 Aorta Name Value Normal Ascending Aorta Ao Root Diameter (MM) 4.2 cm Ao Root Diam Index (MM) 1.7 cm/m2 Aortic Valve Name Value Normal AV Doppler AV Peak Velocity 110 cm/s AV Peak Gradient 5 mmHg AV Mean Gradient 3 mmHg AV VTI 22 cm AV Area (Cont Eq VTI) 3.8 cm2 >=3.0 AV Area (Cont Eq Wally) 3.6 cm2 AV DI (Wally) 0.64 AV Regurgitation 2D LVOT Area 5.7 cm2 Ventricles Name Value Normal LV Dimensions 2D/MM IVS Diastolic Thickness (2D) 1.0 cm 0.6-1.0 LVID Diastole (2D) 6.2 cm 4.2-5.8 LVIW Diastolic Thickness (2D) 1.1 cm 0.6-1.0 LVID Systole (2D) 5.4 cm 2.5-4.0 LVOT Diameter 2.7 cm LV Mass (2D Cubed) 282.25 g 88.00-224.00 LV Mass Index (2D Cubed) 115 g/m2 49-115 Relative Wall Thickness (2D) 0.35 <=0.42 LV Fractional Shortening/Ejection Fraction 2D/MM LV Fractional Shortening (2D) 13 % 25-43 LV EF (2D Teichholz) 27 % LV Diastolic Volume (4C MOD) 204 ml LV EF (4C MOD) 31 % LV Diastolic Volume (2C MOD) 217 ml LV EF (2C MOD) 34 % LV Diastolic Volume (BP MOD) 215 ml 62-150 LV Diastolic Volume Index (BP MOD) 88 ml/m2 34-74 LV Systolic Volume (BP MOD) 142 ml 21-61 LV Systolic Volume Index (BP MOD) 58 ml/m2 11-31 LV EF (BP MOD) 34 % 52-72 LV Diastolic Length (4C) 9.1 cm LV Systolic Length (4C) 8.2 cm LV Stroke Volume (4C MOD) 63 ml RV Dimensions 2D/MM RVID Diastole (2D) 4.3 cm 2.1-3.5 Atria Name Value Normal LA Dimensions LA Dimension (MM) 4.3 cm 3.0-4.0 LA Volume (4C A-L) 81 ml LA Volume (BP A-L) 90 ml RA Dimensions RA Systolic Major Clymer Length (4C) 5.8 cm 2.1-2.7 RA Area (4C) 24.5 cm2 <=18.0 Report Signatures
--- OUTSIDE RECORDS SUMMARY | 2025-03-14 09:08 | XMS_ITS | Patient Health Record ---
Author Organization [facility] Address [address] [facility] [address] [place] [address] Care Team Providers Care Event Marketing Manager Name Role Phone CHARLI BONILLA Unavailable [phone] Reason For Referral No Information Problems Problem Type SNOMED Code ICD Code Onset Dates Problem Status W/U Status Risk Notes Problem Atherosclerotic heart disease of [place] coronary artery without angina pectoris ([id number]) CAD in [place] artery (I25.10) Active confirmed Plan Of Treatment No Information Insurance Providers Payer Name Payer Address Payer Phone Subscriber Number Group Number Insured Name Patient Relationship to Insured Coverage Start Date Coverage End Date [employer] [facility] [address] [place] [address] [id number] Sam Colby Self - patient is the insured [place] [address] [address] [place], [place] [id number] Sam Colby Self - patient is the insured
--- OUTSIDE RECORDS SUMMARY | 2025-03-14 09:08 | XMS_ITS | Referral Summary ---
Author Organization [facility] Address [address] [place] [address] Care Team Providers Care Drawing Instructor Name Role Phone Danny Bai Primary Care Provider Edgar Still MD Unavailable [phone] Darian Villalpando NP Unavailable Allergies No known active allergies Medications lidocaine (XYLOCAINE) 5 % ointment Apply 1 application topically as needed for pain Active albuterol HFA (PROVENTIL HFA,VENTOLIN HFA,PROAIR HFA) 90 mcg/actuation inhalerIndicati ons:Acute Asthma Attack Inhale 2 puffs as needed for wheezing or shortness of breath Active amitriptyline (ELAVIL) 25 mg tablet Take 1 tablet (25 mg total) by mouth nightly as needed for sleep Active omeprazole (PriLOSEC) 40 mg capsuleIndicati ons:Treatment of Non-Bleeding Gastric Disorder,acid reflux Take 1 capsule (40 mg total) by mouth every morning Active albuterol 1.25 mg/3 mL nebulizer solutionIndicat ions:Acute Asthma Attack Take 3 mL (1.25 mg total) by nebulization as needed for wheezing or shortness of breath Active gabapentin (NEURONTIN) 600 mg tabletIndicatio ns:Neuropathic Pain Take 1 tablet (600 mg total) by mouth nightly 1 Active multivitamin capsuleIndicati ons:Vitamin Deficiency Prevention Take 1 capsule by mouth every morning Active docosahexaenoic acid/epa (FISH OIL ORAL)Indication s:supplement Take 1 capsule by mouth every morning Active diclofenac sodium (VOLTAREN) 1 % gel 1 Active carvediloL (COREG) 25 mg tablet Take 2 tablets (50 mg total) by mouth 2 (two) times a day with meals 120 tablet 3 1 Active aspirin 325 mg enteric coated tablet Take 1 tablet (325 mg total) by mouth daily 1 Active atorvastatin (LIPITOR) 80 mg tablet Take 1 tablet (80 mg total) by mouth nightly 30 tablet 3 1 Active losartan (COZAAR) 50 mg tablet Take 1 tablet (50 mg total) by mouth daily 30 tablet 3 1 Active Additional Information Patient not taking.Reported on 12/29/2023 spironolactone (ALDACTONE) 25 mg tablet Take 1 tablet (25 mg total) by mouth daily 30 tablet 3 1 Active econazole 1 % cream Apply to the feet once daily 85 g 11 2 Active Additional Information Patient not taking.Reported on 12/29/2023 gentamicin (GARAMYCIN) 0.1 % ointment Apply once daily to wound on ear 30 g 3 Active Qvar RediHaler 40 mcg/actuation inhaler 4 Active digoxin (LANOXIN) 125 mcg (0.125 mg) tablet Take 1 tablet (0.125 mg total) by mouth daily 2 Active famotidine (PEPCID) 20 mg tablet Take 1 tablet (20 mg total) by mouth every 12 (twelve) hours 2 Active ferrous sulfate 325 mg (65 mg of elemental iron) tablet Take 1 tablet (325 mg total) by mouth daily Active furosemide (LASIX) 40 mg tablet Take 1 tablet (40 mg total) by mouth daily Active HYDROcodone-joanna taminophen (NORCO) 5-325 mg per tablet Take 1 tablet by mouth 2 (two) times a day as needed 4 Active isosorbide mononitrate ER (IMDUR) 30 mg 24 hr tablet Take 1 tablet (30 mg total) by mouth daily 2 Active polyethylene glycol (MIRALAX) 17 gram packet Take 1 packet (17 g total) by mouth daily 2 Active predniSONE (DELTASONE) 20 mg tablet 4 Active Entresto 24-26 mg tablet Take 1 tablet by mouth 2 (two) times a day Active sulfamethoxazol e-trimethoprim (BACTRIM DS) 800-160 mg per tablet Take 1 tablet by mouth 2 (two) times a day 4 Active traMADoL (ULTRAM) 50 mg tablet Take 1 tablet (50 mg total) by mouth every 4 (four) hours as needed 4 Active hydrocortisone 2.5 % creamIndication s:Seborrheic keratosis Apply topically 2 (two) times a day For 1-2 weeks of the left shoulder and left wrist until improved. 30 g 4 Active sildenafiL (VIAGRA) 100 mg tablet TAKE 1 TABLET BY MOUTH DAILY NEEDED FOR SEXUAL ACTIVTY. ADMINSTER 30 MINUTES TO 4 HOURS BEFORE ACTIVITY 4 Active triamcinolone (KENALOG) 0.1 % ointment Apply to AA chest BID 80 g 3 4 Active phentermine 15 mg capsule Take 1 capsule (15 mg total) by mouth daily 4 Active Active Problems Problem Noted Date Diagnosed Date COLTON (obstructive sleep apnea) 03/02/2024 Platelets decreased 03/02/2024 Leg wound, left, subsequent encounter 02/16/2024 Assessment & Plan (02/16/2024 8:47 AM CDT): No evidence of PVD in the left lower extremity. No evidence of significant valvular reflux in the venous system of the great saphenous vein in the calf or with the small saphenous vein. I have recommended continuing local wound care with strict compression therapy. Can follow up as needed. Peripheral vascular disease 12/31/2023 Assessment & Plan (01/26/2024 1:12 PM CDT): ABIs are normal bilaterally with overall triphasic Doppler waveforms, recommend continuing local wound care. Left lower extremity venous reflux portable pinch riveter ordered for further evaluation as the left lower extremity he reports is chronically swollen. Assessment & Plan (12/31/2023 11:15 AM VOLTAGE TESTER): Lower extremities with 1+ pitting edema bilaterally. Palpable but diminished pulses. Chronic wound to the left lateral ankle which is intact no signs of infection. Plan: Encouraged daily use of compression to help with the edema. Continue daily dressing changes and wound care as per Dr. Zuniga. Follow-up in the next few weeks with a lower extremity arterial Doppler study. Hip pain 12/29/2023 Primary osteoarthritis of right knee 12/29/2023 Arthritis of right hip 10/16/2022 Status post coronary artery bypass grafting 09/25 Coronary artery disease due to calcified coronar y lesion 09/15/2021 Coronary artery disease invo lving [place] coronary artery of [place] heart without angina pectoris 09/03/2021 Overview (09/03/2021): Added automatically from request for surgery [id number] Painful orthopaedic hardware 01/07/2021 Overview (01/07/2021): Added automatically from request for surgery [id number] Class 1 obesity with body ma ss index (BMI) of 32.0 to 32.9 in adult 10/11/2019 Chronic pain 10/11/2019 Risk factors for obstructive sleep apnea 019 Left rotator cuff tear arthropathy 09/25/2019 Overview (09/25/2019): Added automatically from request for surgery [id number] History of left hip replacement 09/19/2019 Aftercare following surgery 09/19/2019 Asthma 09/19/2019 Cardiac arrhythmia 09/19/2019 Disorder of lower extremity 09/19/2019 Essential hypertension 09/19/2019 Assessment & Plan (02/16/2024 8:47 AM CDT): Stable continue Coreg 25 mg. Assessment & Plan (01/26/2024 1:13 PM CDT): Stable continue Coreg 25 mg Gastroesophageal reflux disease 09/19/2019 Hyperlipidemia 09/19/2019 Assessment & Plan (02/16/2024 8:47 AM CDT): Stable continue Lipitor 80 mg. Assessment & Plan (01/26/2024 1:13 PM CDT): Stable continue Lipitor 80 mg. Impotence 09/19/2019 Insomnia 09/19/2019 Osteoarthritis 09/19/2019 Osteoarthritis of hip 09/19/2019 Primary localized osteoarthritis of pelvic regio n and thigh 09/19/2019 Radiotherapy follow-up 09/19/2019 Neoplasm of connective and soft tissue 2 Actinic keratosis 05/02/2012 Immunizations Immunization Administration Dates Next Due Influenza, Quad, Adjuvantated, Intramuscular ,08/01/2020 Influenza, Quadrivalent, Split, Intramuscular ,09/11/2016 Influenza, Quadrivalent, Spl it, Preservative Free, Intramuscular 09/28/2017 Influenza, Trivalent, High D ose, Split, Preservative Free, Intramuscular 10/13/2019,08/07/2011 Influenza, Trivalent, IM (MDV) 08/26/2015 Influenza, Trivalent, Preservative Free, Intramu scular 09/06/2014,08/11/2013 Pneumococcal Conjugate PCV 13 04/25/2019 Td, Not Adsorbed 04/03/2013 Td, Unspecified 04/03/2013 Tdap 10/06/2023 Social History Tobacco Use Types Packs/Day Years Used Date Smoking Tobacco: Never Smokeless Tobacco: Never Tobacco Cessation:Counseling Given: Not Answered Alcohol Use Standard Drinks/Week Comments Not Asked 2 (1 standard drink = 0.6 oz pur e alcohol) AUDIT-C Answer Date Recorded Q1: How often do you have a drink containing alc ohol? 2-3 times a week 01/14/2022 Q2: How many drinks containi ng alcohol do you have on a typical day when you are drinking? 1 or 2 01/14/2022 Q3: How often do you have si x or more drinks on one occasion? Never 01/14/2022 Sex and Gender Information Value Date Recorded Sex Assigned at Not on file Legal Sex Male 2:47 PM VOLTAGE TESTER Gender Identity Not on file Sexual Orientation Not on file Last Filed Vital Signs Vital Sign Reading Time Taken Comments Blood Pressure 128/71 02/14/2024 1:20 PM CDT Pulse 42 02/14/2024 1:20 PM CDT Temperature 36.3 C (97.3 F) 01/14/2022 11:47 AM CDT Respiratory Rate 17 01/14/2022 1:15 PM CDT Oxygen Saturation 97% 01/14/2022 1:15 PM CDT Inhaled Oxygen Concentration - - Weight 115.2 kg (254 lb) 03/02/2024 4:16 PM CDT Height 185.4 cm (6' 1 ) 03/02/2024 4:16 PM CDT Body Mass Index 33.51 03/02/2024 4:16 PM CDT Plan of Treatment Not on file Medical Devices Implanted Type Area Form Tamper Operator Device Identifier Shelf Expiration Date Model / Serial / Lot Tornier Inc [id number] Tornier Aequalis Perform 15mm Press Fit Long Post Shoulder - [id number] Implanted:Qty: 1 on 10/13/2019 by Damir Dale MD at [facility] Left: Shoulder [email or web address] 07/20/2024 [id number] / / [id number] Tornier Inc [id number] Tornier Aequalis Perform 25mm Reverse Shoulder Standard Baseplate - [id number] Implanted:Qty: 1 on 10/13/2019 by Damir Dale MD at [facility] Left: Shoulder [email or web address] [id number] / / [id number] Tornier Inc [id number] Aequalis Perform Reversed 5mm 30mm Peripheral Glenoid Screw - [id number] Implanted:Qty: 1 on 10/13/2019 by Damir Dale MD at [facility] Left: Shoulder [email or web address] [id number] / / T[employer]ier Inc [id number] Aequalis Perform Reversed 5mm 38mm Peripheral Glenoid Screw - [id number] Implanted:Qty: 1 on 10/13/2019 by Damir Dale MD at [facility] Left: Shoulder [email or web address] [id number] / / Tornier Inc [id number] Tornier Aequalis Perform Od39 Mm Lateralize Reverse Shoulder +3 Mm Sphere Glenoid - [id number] Implanted:Qty: 1 on 10/13/2019 by Damir Dale MD at [facility] Left: Shoulder [email or web address] 07/10/2024 [id number] / / [id number] Tornier Inc [id number] Insert 12.5d 6+ Mm 39mm Humeral Flex Shoulder Sterile - [id number] Implanted:Qty: 1 on 10/13/2019 by Damir Dale MD at [facility] Left: Shoulder [employer] 09/06/2024 [id number] / / [id number] Tornier Inc [id number] Aequalis Ascend Flex Reverse Shoulder +0mm 3.5mm High Offset Tray - [id number] Implanted:Qty: 1 on 10/13/2019 by Damir Dale MD at [facility] Left: Shoulder [employer] 09/18/2024 [id number] / / [id number] Tornier Inc [id number] Stem Humeral 70mm Shoulder Pressfit Aequalis Ascend Flex Ptc 132.5d 2b Standard - [id number] - [id number] Implanted:Qty: 1 on 10/13/2019 by Damir Dale MD at [facility] Left: Shoulder [employer] 03/16/2024 [id number] / [id number] / Procedures Procedure Name Priority Date/Time Associated Diagnosis Comments COLONOSCOPY 01/14/2022 11:51 AM CDT from Last 3 Months or Most Recently Relevant to Health Maintenance Results * COLONOSCOPY (01/14/2022 11:51 AM CDT) Anatomical Region Laterality Modality Other Narrative Procedure Note Edmund Gordon MD - 01/14/2022 11:51 AM CDT ENDOSCOPY LAB Patient Name: Sam Jacob Procedure Date: 01/14/2022 11:51 AM Admit Type: Outpatient Room: [facility] Date of : 1955 Instrument Name: [id number] Gender: Male Note Status: Finalized Procedure: Colonoscopy Indications: High risk colon cancer surveillance: Personalhistory of colonic polyps, Last colonoscopy within the past5 years Providers: Edmund Gordon M.D. Referring MD: Kendall Lewis M.D. Medicines: Propofol per Anesthesia Complications: No immediate complications. Estimated Blood Loss: Estimated blood loss: none. Procedure: Pre-Anesthesia Assessment: - Prior to the procedure, a History and Physicalwas performed, and patient medications and allergieswere reviewed. The patient's tolerance of previous anesthesia was also reviewed. The risks andbenefits of the procedure and the sedation options and risks were discussed with the patient. All questions were answered, and informed consent was obtained. Prior Anticoagulants: The patient has taken noanticoagulant or antiplatelet agents except for aspirin. ASAGrade Assessment: II - A patient with mild systemicdisease. After reviewing the risks and benefits, the patient was deemed in satisfactory condition to undergo the procedure. - The risks and benefits of the procedure and the sedation options and risks were discussed with the patient. All questions were answered and informed consent was obtained. The benefits, risks and alternatives of theprocedure and sedation were discussed and informed consentwas obtained. All questions were answered. Please referto the signed informed consent document in the medical record. The scope was passed under direct vision.The Colonoscope was introduced through the anus and advanced to the the cecum, identified byappendiceal orifice and ileocecal valve. The colonoscopy was performed without difficulty. The patient tolerated the procedure well. The quality of the bowel preparation was good. The bowel preparation usedwas Plenvu via split dose instruction. Findings: The perianal and digital rectal examinations were normal. A 9 mm polyp was found in the cecum. The polyp was sessile. The polyp was removed with a cold snare. Resection and retrieval werecomplete. Two sessile polyps were found in the ascending colon. The polyps were5 to 7 mm in size. These polyps were removed with a cold snare.Resection and retrieval were complete. Two sessile polyps were found in the sigmoid colon. The polyps were 4to 6 mm in size. These polyps were removed with a cold snare. Resectionand retrieval were complete. Many small and large-mouthed diverticula were found in the entirecolon. There was no evidence of diverticular bleeding. Internal hemorrhoids were found during retroflexion. The hemorrhoids were medium-sized and Grade I (internal hemorrhoids that do not prolapse). Impression: - One 9 mm polyp in the cecum, removed with a cold snare. Resected and retrieved. - Two 5 to 7 mm polyps in the ascending colon,removed with a cold snare. Resected and retrieved. - Two 4 to 6 mm polyps in the sigmoid colon,removed with a cold snare. Resected and retrieved. - Moderate diverticulosis in the entire examined colon. There was no evidence of diverticularbleeding. - Internal hemorrhoids. Recommendation: - Patient has a contact number available for emergencies. The signs and symptoms of potential delayed complications were discussed with thepatient. Return to normal activities tomorrow. Written discharge instructions were provided to thepatient. - High fiber diet. - Use Benefiber one teaspoon PO daily. - Await pathology results. - Repeat colonoscopy in 3 years for surveillancebased on pathology results. Attending Participation: I personally performed the entire procedure. Edmund Gordon M.D. 01/14/2022 12:38:55 PM Number of Addenda: 0 Note Initiated On: 01/14/2022 11:51 AM Scope In: Scope Out: Edmund Gordon MD ENDOSCOPY PROCEDURES Final Result from Last 3 Months or Most Recently Relevant to Health Maintenance Insurance [facility] MEDICARE ADVANTAGE [facility] MEDICARE ADVANTAGE [facility] [place] [id number] [facility] MEDICARE Advance Directives For more information, please contact: [phone] * Full Code (Latest Code Status on File) Date Activated Date Inactivated Comments 09/15/2021 2:42 PM 09/20/2021 6:16 PM * Full Code Date Activated Date Inactivated Comments 10/13/2019 12:02 PM 10/14/2019 5:29 PM Care Teams Drawing Instructor Relationship Specialty Start Date End Date Danny Bai PA [address] [place] [address] PCP - General 12/27/20 Edgar Still MD [address] [place] [address] Referring Physician Cardiology 09/03/21 Darian Villalpando NP [address] [place] [address] Referring Physician Nurse Practitioner 01/07/24
--- OUTSIDE RECORDS SUMMARY | 2025-03-14 09:08 | XMS_ITS | Clinical Summary ---
Author Organization [facility] Address [address] [place] [address] Care Team Providers Care Physicist Nuclear Name Role Phone Danny Bai Primary Care Provider Edgar Still MD Unavailable [phone] Darian Villalpando NP Unavailable Allergies No known [...] wound care. Left lower extremity venous reflux cartographic designer ordered for further evaluation as the left lower extremity he reports is chronically swollen. Assessment & Plan (12/31/2023 11:15 AM WEB UI DEVELOPER): Lower extremities with 1+ pitting edema bilaterally. [...] lesion 09/15/2021 Coronary artery disease invo lving [place] coronary artery of [place] heart without angina pectoris 09/03/2021 Overview (09/03/2021): Added automatically from request for surgery [id number] Painful orthopaedic hardware 01/07/2021 Overview (01/07/2021): Added automatically from request for surgery [id number] Class 1 obesity with body ma ss index (BMI) of 32.0 to 32.9 in adult 10/11/2019 Chronic pain 10/11/2019 Risk factors for obstructive sleep apnea 019 Left rotator cuff tear arthropathy 09/25/2019 Overview (09/25/2019): Added automatically from request for surgery [id number] History of left hip replacement 09/19/2019 Aftercare [...] Adsorbed 04/03/2013 Td, Unspecified 04/03/2013 Tdap 10/06/2023 Surgical History Surgery Date Site/Laterality Comments ROTATOR CUFF REPAIR 10/25/1982 - 10/24/1983 Left ROTATOR CUFF REPAIR 10/25/2002 - 10/24/2003 Right FLUORO GUIDED ASPIRATION OR INJECTION INTERMEDIATE JOINT LEFT 07/17/2020 Left FLUORO GUIDED INJECTION SHOULDER LEFT 08/13/2020 Left FLUORO GUIDED ASPIRATION SHOULDER LEFT 12/27/2020 Left REVERSE TOTAL SHOULDER ARTHROPLASTY 09/24/2019 - 10/24/2019 COLONOSCOPY 08/25/2014 - 09/23/2014 REPLACEMENT TOTAL KNEE ? Left TOTAL HIP ARTHROPLASTY ? Left EAR SURGERY 10/25/2008 - 10/24/2009 Right HIP SURGERY 08/25/2011 - 09/23/2011 Right cyst drained from hip CORONARY ARTERY BYPASS GRAFT Medical History Medical History Date Comments Shoulder pain GERD (gastroesophageal reflux disease) Cervical spine disease Hypertension Awareness under anesthesia Woke up during R shoulder arthroplasty, patient was told by surgeon he was thrashing around. Patient was unaware of this event. No recollection of incident. Myocardial infarction (HCC) sile nt [place] found on stress test Asthma Hyperlipidemia Loss of hearing 2004 right ear, surge ry with hearing aides Syncope 2010 1 episode lastin g 15 min, hospitalized with no findings and no recurrence Coronary artery disease Colon polyp Skin cancer COLTON (obstructive sleep apnea) 03/02/2024 Family History Medical History Relation Name Comments Hypertension Father Cancer Mother Relation Name Status Comments Brother Alive Father Mother Social History Tobacco Use Types Packs/Day Years [...] on file Legal Sex Male 2:47 PM WEB UI DEVELOPER Gender Identity Not on file Sexual Orientation Not on file Obstetrics History Last Filed Vital Signs Vital Sign Reading [...] 03/02/2024 4:16 PM CDT Plan of Treatment Health Maintenance Due Date Last Done Comments Depression Screening 1955 Hepatitis C Screening 1955 Hepatitis B Screening 1971 Zoster Vaccine (1 of 2) 2003 Well Visit 65+ 2018 Pneumococcal vaccine 65+ (2 of 2 - PPSV23) 06/20/2019 04/25/2019 Fall Risk Assessment 09/20/2022 09/20/2021 Covid-19 Vaccine ( - 2023-2 5 season) 2024 08/12/2021, 01/25/2021, 01/03/2021 Influenza Vaccine (Season Ended) 2025 08/12/2021, 08/01/2020, 08/01/2020, Additional history exists Colon Cancer Screening-Colonoscopy 01/15/2032 01/14/2022 DTaP/Tdap/Td Vaccine (2 - Td or Tdap) 10/06/2033 10/06/2023, 04/03/2013, 04/03/2013 Colon Cancer Screening-CT Colonography Discontinued 01/14/2022 Colon Cancer Screening-DNA Stool Discontinued 01/15/20 Colon Cancer Screening-FIT Discontinued 01/14/2022 Colon Cancer Screening-Sigmoidoscopy Discontinued 01/14/2022 Medical Devices Implanted Type Area Director Of Strategy & Mobile Device Identifier Shelf Expiration Date Model / Serial / Lot Tornier Inc [id number] Tornier Aequalis Perform 15mm Press Fit Long Post Shoulder - [id number] Implanted:Qty: 1 on 10/13/2019 by Damir Dale MD at [facility] Left: Shoulder [employer] 07/20/2024 [id number] / / [id number] Tornier Inc [id number] Tornier Aequalis Perform 25mm Reverse Shoulder Standard Baseplate - [id number] Implanted:Qty: 1 on 10/13/2019 by Damir Dale MD at [facility] Left: Shoulder [employer] [id number] / / [id number] Tornier Inc [id number] Aequalis Perform Reversed 5mm 30mm Peripheral Glenoid Screw - [id number] Implanted:Qty: 1 on 10/13/2019 by Damir Dale MD at [facility] Left: Shoulder [employer] [id number] / / Tornier Inc [id number] Aequalis Perform Reversed 5mm 38mm Peripheral Glenoid Screw - [id number] Implanted:Qty: 1 on 10/13/2019 by Damir Dale MD at [facility] Left: Shoulder [employer] [id number] / / Tornier Inc [id number] Tornier Aequalis Perform Od39 Mm Lateralize Reverse Shoulder +3 Mm Sphere Glenoid - [id number] Implanted:Qty: 1 on 10/13/2019 by Damir Dale MD at [facility] Left: Shoulder [employer] 07/10/2024 [id number] / / [id number] Tornier Inc [id number] Insert 12.5d 6+ Mm 39mm Humeral Flex Shoulder Sterile - [id number] Implanted:Qty: 1 on 10/13/2019 by Damir Dale MD at [facility] Left: Shoulder [employer] 09/06/2024 [id number] / / [id number] Tornier Inc [id number] Aequalis Ascend Flex Reverse Shoulder +0mm 3.5mm High Offset Tray - [id number] Implanted:Qty: 1 on 10/13/2019 by Damir Dale MD at [facility] Left: Shoulder [employer] 09/18/2024 [id number] / / [id number] Tornier Inc [id number] Stem Humeral 70mm Shoulder Pressfit Aequalis Ascend Flex Ptc 132.5d 2b Standard - [id number] - [id number] Implanted:Qty: 1 on 10/13/2019 by Damir Dale MD at [facility] Left: Shoulder [employer] 03/16/2024 [id number] / [id number] / Procedures Procedure Name Priority Date/Time Associated Diagnosis Comments COLONOSCOPY 01/14/2022 11:51 AM CDT from Last 3 Months or Most Recently Relevant to Health Maintenance Results * COLONOSCOPY (01/14/2022 11:51 AM CDT) Anatomical Region Laterality Modality Other Narrative Procedure Note Edmund Gordon MD - 01/14/2022 11:51 AM CDT ENDOSCOPY LAB Patient Name: Sam Jacob Procedure Date: 01/14/2022 11:51 AM Admit Type: Outpatient Room: [facility] Date of : 1955 Instrument Name: [id number] [...] Most Recently Relevant to Health Maintenance Insurance [employer] MEDICARE ADVANTAGE Member Subscriber Plan / Payer (Ef fective 2021-Present) Name:Sam Jacob Relation to Subscriber:Self Name:Sam Jacob Payer ID:[id number] (NAIC) Type:[facility] MEDICARE Address: [place] [phone] UHC MEDICARE ADVANTAGE Member Subscriber Plan / Payer (Ef fective 2015-Present) Name:Sam Jacob Relation to Subscriber:Spouse Name:ASTER JACOB Date of :1959 (Home) Address: [address] [place] [address] Payer ID:[id number] (NAIC) Group ID:[id number] Type:[employer] Address: [address] [place] [id number] MEDICARE Advance Directives For more information, please contact: [phone] * Full Code (Latest Code Status on File) Date Activated Date Inactivated Comments 09/15/2021 2:42 PM 09/20/2021 6:16 PM * Full Code Date Activated Date Inactivated Comments 10/13/2019 12:02 PM 10/14/2019 5:29 PM Care Teams Physicist Nuclear Relationship Specialty Start Date End Date Danny Bai PA [address] [place] [address] PCP - General 12/27/20 Edgar Still MD [address] [place] [address] Referring Physician Cardiology 09/03/21 Darian Villalpando NP [address] [place] [address] Referring Physician Nurse Practitioner 01/07/24
--- OUTSIDE RECORDS SUMMARY | 2025-03-14 09:08 | XMS_ITS | CONTINUITY OF CARE DOCUMENT ---
Author Name jessica lopez Address Unknown Organization [facility] Address [address] [place] [address] Phone [phone] Care Team Providers Care Supervisor [employer] Name Role Phone Ronald LOPEZ, Myra Unavailable INSURANCE PROVIDERS Payer name Policy type / Coverage type Jas red alliance party ID [facility] [id number] Other [id number]
--- OUTSIDE RECORDS SUMMARY | 2025-03-14 09:08 | XMS_ITS | Data Portability ---
Author Organization [place] [facility] Address [address] [place] [address] Care Team Providers Care News Commentator Name Role Phone GRAYSON WARREN Primary Care Provider Assessment Encounter Date Assessment Date Assessment LastModified by Organization Details LastModified Time 09/30/2023 09/30/2023 68-year-old male presents today with complaints of chronic neck pain. Pain is primarily axial but occasional radicular symptoms following no specific nerve root distribution. He exhibits weakness with head of stock strength and tenderness to palpation in the fingers. Diagnosis of cervical degenerative disc disease with severe spondylosis, facet arthropathy, and occasional cervical radiculopathy. An MRI of the cervical spine was reviewed, including images and report from 2021. There is severe degenerative disc disease at C6-7. Kyphosis of the cervical spine. Multilevel autofusion. 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 Multilevel foraminal stenosis. Treatment options reviewed. Patient has attempted therapy in the past as well as injections and ablations in [place] with reported benefit. Records requested. He was seen by a spine surgeon who recommended nonoperative treatment. In all likelihood, if the patient were to undergo surgery it would be a multilevel fusion. He notes benefit with occasional use of Advil, marijuana, and hydrocodone 5-325 mg and denies side effects. He reports benefit in regards to pain reduction and ability to perform daily activities with less pain. Urine drug screen obtained today will be sent for analysis. Patient recently relocated from [place] where recreational marijuana use was legal. Advised the patient that he will need to obtain a [facility] medical marijuana card prior to managing his opioid long-term. Recognizing he has been on this medication for many years and it is currently out as of yesterday, I will provide an 8-day supply until the patient can return to clinic with the above. Opioid agreement signed. Plan: Follow-up next Wednesday. 8-day supply of hydrocodone 5 3 and 25 mg 3 times daily provided. UDS sent for analysis. Records requested to review for procedures and compliance. To obtain a medical marijuana card. ORT = 0 UDS 09-30-23: + THC, amphetamine (on phentermine), morphine (on hydrocodone) - sent for analysis Opioid agreement signed 09-30-23 Not available 09/30/2023 09:37:35 Plan of Treatment Reminders Order Date Submit Date Provider Last Modified By Organization Details Last Modified Time Details Appointments None recorded. Lab drug screen, urine 2022 023 [email or web address] Not available 10:26:55 drug confirmatio n, urine 2022 023 [email or web address] Not available 10:27:15 Referral None recorded. Procedures None recorded. Surgeries None recorded. Imaging XR, cervical spine, 4 or 5 view 2022 023 [email or web address] In-House Results, For Internal Use Only, Do Not Delete/merge, [id number] 09:41:17 Medication Orders hydrocodone 5 mg-acetamin ophen 325 mg tablet 2022 023 [id number], [address] [place], [place], [phone], 09:38:25 Patient TargetsNo targets recorded. Patient Instructions Encounter Date Encounter Id Patient Instructions Last Modified By Organization Details Last Modified Time 09/30/2023 [id number] A mid-level prov ider in my office may see the patient on follow-up visits and continue to implement the objectives of this plan, including: Starting or adjusting medications, injections (muscle, tendon, nerve, joint), wound care management, cast applications, orthotic or brace application, physical therapy, further radiologic studies (x-ray, MRI, CT, ultrasound, bone scan), vascular studies, neurologic studies, other specialist consultations, and proceeding with surgical management, as appropriate. The pain condition that the patient suffers from is most often best treated with a multidisciplinary approach that involves an increase in physical activity to prevent deconditioning and worsening of the pain cycle, psychological counseling (formal and/or informal) to address co-morbid psychological effects of pain. This will often involve judicious use of medications and interventional pain medicine strategies to lower the person's pain so that they may participate in the physical activity that will produce long-lasting pain reductions. The goal of the multidisciplinary approach to pain medicine employed with the patient is to return the patient to a higher level of overall function and methodist of their activities of daily living. It has been discussed that there are risks associated with opioid medication. -This included a discussion about side effects including severe side effects such as sleep-disordered breathing or respiratory depression. -There is the possibility of bowel obstruction. -There is the potential hormonal consequences of chronic opioid use. We have discussed how these medications could lead to weakness, fatigue, depression, sexual dysfunction, loss of muscle and bone mass, cognitive disturbances (including problems with memory and concentration). It has been explained that men may experience low testosterone levels, testicular atrophy, and/or decreased stamina, sexual desire, and physical and sexual performance. -There is risk of addiction/physical dependence. -There is potential that people may become tolerant of opioid medications and that this may lead to increasing doses with even a higher likelihood of side effects. -We also talked about potential for cognitive side effects including impacting judgment and the ability to drive. -We have discussed the fact that some of these side effects could potentially lead to (i.e. do to respiratory depression, sleep-disordered breathing, or even possibly from bowel obstruction). [employer] Prescription Drug Monitoring Database has been queried and verified prior to prescribing the controlled substance. This patient has a chronic pain conditioned that has failed other conservative treatment modalities. Alternative treatment options have been provided to the patient. The patient is prescribed a greater than 3 day course of opioids because the patient's condition is determined to be chronic in nature. We have had a discussion with the patient on nonopioid alternatives, explained the advantages and disadvantages, and provided the patient with the [facility] pamphlet. Not available 09/30/2023 09:35:19 Reason for Referral None Reported. Results Created Date Observation Date Name Description Value Unit Range Abnormal Flag Note LastModifiedBy Organization Detail LastModifiedTime 09/30/20 XR, cervi jefe spine , 4 or 5 view No observ ation record ed. In-House Results For Internal Use Only, Do Not Delete/merge, [id number] 09/30/2023 09:34:33 09/30/20 23 05/30/2022 MRI, cervi jefe spine , w/o contr ast No observ ation record ed. [facility] Not Available 2022 15:13:17 09/30/2009/30/2023 drug abuse asses sment tool* No observ ation record ed. [facility] Not Available 2022 15:13:17 Result Notes None recorded. Problems Name Problem SNOMED Code Status Onset Date Resolution Date Notes Provider Name and Address Organization Details Recorded Time Neck pain 74975105 Active 2022 Mauro Gilliland MD [address] [place], [address], [facility] 3 09:34:42 History of cervical spine fusion 3645699826706 Active 2022 Mauro Gilliland MD [address] [place], [address], [facility] 3 09:34:44 Cervical spondylosis 950559111 Active 2022 Mauro Gilliland MD [address] [place], [address], [facility] 3 09:34:45 Cervical kyphosis 896621163 Active 2022 Mauro Gilliland MD [address] [place], [address], [facility] 3 09:34:45 Cervical radiculitis 83292108 Active 2022 Mauro Gilliland MD [address] [place], [address], [facility] 3 09:34:46 Degeneratio n of cervical interverteb ral disc 62469638 Active 2022 Mauro Gilliland MD [address] [place], [address], [facility] 3 09:34:47 Long-term current use of opiate analgesic drug 3848980941966 08 Active 2022 Mauro Gilliland MD [address] [place], [address], [facility] 3 09:34:48 Problem Notes None recorded. Procedures Surgical History Date Name Laterality Status Provider Name and Address Organization Details Recorded Time Knee Surgery completed [facility] 09/30/2023 09:10:11 Hip Surgery completed [facility] 09/30/2023 09:10:11 Shoulder Surgery completed [facility] 09/30/2023 09:10:11 Joint Replacement completed [facility] 09/30/2023 09:10:11 Heart Surgery completed [facility] 09/30/2023 09:10:11 Imaging Results Imaging Date Name Status LastModified by Organiz ation Details LastModified Time 09/30/2023 XR, cervical spine, 4 or 5 view completed In-House Results For Internal Use Only, Do Not Delete/merge, [id number] 09/30/2023 09:34:33 05/30/2022 MRI, cervical spine, w/o contrast completed [facility] Information not available 09/30/2023 15:13:17 09/30/2023 drug abuse assessment tool* completed [facility] Information not available 09/30/2023 15:13:17 Procedure Notes None recorded. Medical Equipment None Reported. Medications Name Sig Start Date Stop Date Status Note LastModified by Organization Details LastModified Time hydrocodone 5 mg-acetaminoph en 325 mg tablet Take 1 tablet 3 times a day by oral route as needed. 2022 active Not Available Not Available Not Avai lable amitriptyline 10 mg tablet Take 1 tablet every day by oral route. active Not Available Not Available No t Available atorvastatin active Not Available Not Available Not Available aspirin active Not Available Not Avail able Not Available omeprazole active Not Available Not Av ailable Not Available albuterol sulfate active Not Available Not Available Not Available furosemide active Not Available Not Av ailable Not Available carvedilol active Not Available Not Av ailable Not Available gabapentin active Not Available Not Av ailable Not Available celecoxib active Not Available Not Kathie ilable Not Available hydrocodone 5 mg-acetaminoph en 300 mg tablet Take 1 tablet every 4 hours by oral route. active Not Available Not Available No t Available diclofenac 1 % topical gel APPLY 2 GRAMS TO THE AFFECTED AREA(S) BY TOPICAL ROUTE 4 TIMES PER DAY active Not Available Not Available No t Available polyethylene glycol (bulk) active Not Available Not Availabl e Not Available lidocaine 10 %-tetracaine 10 %-benzocaine 20 % topical ointment active Not Available Not Available Not Available Vitals Date Recorded Body weight Systolic blood pressure Diastolic blood pressure Provider Name and Address Organization Details Last Updated DateTime 09/30/2023 893227.35 g 138 mm[Hg] 75 mm[Hg] [facility] 09/30/2023 09:19:07 Social History Question Answer Notes LastModified by Organization D etails LastModified Time Do You Have An Advance Directive? Yes Information not available 09/30/2023 Which Of Your Hands Is Dominant? Right Information not available 09/30/2023 Auto Related Injury? No Information not available 09/30/2023 Work Related Injury No Information not available 09/30/2023 Sex: Unknown Functional Status Question Answer Note LastModified by Organizat ion Details LastModified Time What is your level of alcohol consumption? Occasional Information not available 09/30/2023 Are you currently employed? No Information not available 09/30/2023 Are you able to care for yourself? Yes Information not available 09/30/2023 Mental Status None recorded. Family History Nothing Reported. Medical History Condition Response Heart Disease Y High Blood Pressure Y Asthma Y High Cholesterol Y Past Encounters Encounter ID Performer Location Encounter Start Date Encounter Closed Date Diagnosis/Indication Diagnosis SNOMED-CT Code Diagnosis ICD10 Code Diagnosis Note [id number] Mauro Gilliland MD [place] [address] [place] [address] 09/30/2023 08:24:45 09/30/2023 09:41:17 Neck pain 19591632 M54.2 Long-term current use of opiate analgesic drug 2258616504 29069 Z79.891 Cervical spondylosis 387 395465 M47.812 Cervical kyphosis 456878 001 M40.202 Degenerati on of cervical intervertebral disc 90637028 M50.30 History of cervical spine fusion 0448705415 101 Z98.1 Cervical radiculopathy 07902873 M54.12 Health Concerns Section Related Observation LastModified by Organization Detai ls LastModified Time None Recorded Concern Status LastModified by Organization Details LastModified Time None Recorded Advance Directives Directive Y: Payers Insurance Date Sequence Insurance Name Policy Number Policy Price Covered Member ID Price Member ID Guarantor Name 10/06/2023 1 [facility] (MEDICARE REPLACEMENT/A DVANTAGE - HMO) [id number] Sam Colby [id number] Sam Colby Notes Date Note Type Note Provider Name and Address Organization Details Recorded Time 09/30/2023 text/html New patient-ONSE T: 15 years agoCervical 68 year old male patient presents as new evaluation for cervical pain and medication management. Patient reports and aching and throbbing pain in the cervical spine. Patient reports that the pain begin 15 years ago with no known injury. Patient reports that the pain is constant and radiates to the BL hands. Patient reports numbness in the BL hands in all of the fingers. Patient reports pain is worse with activity and improves with medications. Patient reports attending physical therapy with no improvement. 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 Patient reports taking Hydrocodone and phentermine for relief. Medications were reviewed and updated in chart. No other changes reported. Mauro Gilliland MD [address] [place], [address], [facility] 09/30/2023 13:01:58
--- OUTSIDE RECORDS SUMMARY | 2025-03-14 09:08 | XMS_ITS | Clinical Summary ---
Author Organization [facility] Address [address] [place] [place] [address] Care Team Providers Care Financial Services Officer Name Role Phone Danny Bai PA-C Primary Care Provide r Source Comments [facility],non-owned Affiliates and Associated Physician Practices is amultiple site organization consisting of ambulatory clinics and hospital sitesin [place], [place], [place] and [place]. This disclosure is being madepursuant to the Care Everywhere program and may not contain all information available regarding this patient. Last updated 18.[facility] Allergies No known active allergies Medications * Be aware that medications may not be up to date on this document. Alwaysverify current medications with the patient. albuterol HFA (PROVENTIL;EVANGELINA TIESHA;PROAIR) 108 (90 BASE) MCG/ACT inhaler Inhale 2 (two) puffs by mouth every 6 hours as needed Active econazole nitrate (Spectazole) 1 % cream Apply to the feet once daily 2 Active oxyCODONE-acetam inophen (Percocet) 5-325 MG tablet Take 1 (one) tablet by mouth 2 times daily as needed 2 Active atorvastatin (Lipitor) 80 MG tablet 0.5 (one-half) tablet 1 Active diclofenac sodium (Voltaren) 1 % gel 1 Active gabapentin (Neurontin) 600 MG tablet Take by mouth every 8 hours Active omeprazole (PriLOSEC) 40 MG capsule 1 Active lidocaine (Xylocaine) 5 % ointment 1 Active amitriptyline (Elavil) 25 MG tablet Take 1 (one) tablet by mouth at bedtime 2 Active digoxin (Lanoxin) 0.125 MG tablet Take 1 (one) tablet by mouth once daily 2 Active isosorbide mononitrate CR 24hr (Imdur) 30 MG tablet Take 1 (one) tablet by mouth once daily 2 Active losartan (Cozaar) 100 MG tablet Take 1 (one) tablet by mouth once daily 2 Active aspirin EC (Ecotrin) 81 MG tablet Take 1 (one) tablet by mouth once daily Active furosemide (Lasix) 40 MG tablet Take 1 (one) tablet by mouth once daily Active carvedilol (Coreg) 6.25 MG tablet Take 1 (one) tablet by mouth 2 times daily with morning and evening meal Active HYDROcodone-acet aminophen (Isabella) 5-325 MG tablet Take 1 (one) tablet by mouth every 4 hours as needed 40 tablet 2 Active celecoxib (CeleBREX) 200 MG capsule Take 1 (one) capsule by mouth 2 times daily 60 capsule 1 2 Active polyethylene glycol 3350 (Miralax) 17 g packet Take 17 (seventeen) g by mouth once daily 20 packet 2 Active famotidine (Pepcid) 20 MG tablet Take 1 (one) tablet by mouth every 12 hours 40 tablet 2 Active sildenafil (Viagra) 100 MG tablet TAKE 1 TABLET BY MOUTH DAILY NEEDED FOR SEXUAL ACTIVTY. ADMINSTER 30 MINUTES TO 4 HOURS BEFORE ACTIVITY 3 Active sulfamethoxazole -trimethoprim (Bactrim DS; Septra DS) 800-160 MG tabletIndication s:Wound infection Take 1 (one) tablet by mouth 2 times daily 28 tablet 4 Active Active Problems Problem Noted Date Diagnosed Date Arthritis of right hip 10/16/2022 Immunizations Immunization Administration Dates Next Due INFLUENZA VACCINE, TRIV. (AF LURIA, FLUZONE TRIVALENT; 6MO+) (IIV3) 08/26/2015 FLU VACCINE QUAD IIV4 SPLIT 0.25 ML IM 0,09/11/2016 FLU VACCINE TRI IIV3 SPLIT PF IM (FLUVIRIN) 08/25,08/11/2013 INFLUENZA VACCINE, HIGH-DOSE , QUADR. (FLUZONE HIGH-DOSE QUADRIVALENT; 65Y+), 0.7 ML (HD-IIV4) 10/13/2019,09/12/2018,08/07/2011 INFLUENZA VACCINE, QUADR. (F LUZONE; FLULAVAL; FLUARIX; AFLURIA QUADRIVALENT; 6MO+), 0.5 ML (IIV4) 09/28/2017 Pneumococcal Pcv13 Conj 04/25/2019 TD VACCINE 04/03/2013 Social History Tobacco Use Types Packs/Day Years Used Date Smoking Tobacco: Never Smokeless Tobacco: Never Tobacco Cessation:Counseling Given: Not Answered Alcohol Use Standard Drinks/Week Comments Yes 0 (1 standard drink = 0.6 oz pur e alcohol) weekends PHQ-2 Answer Date Recorded Patient Health Questionnaire-2 Score 0 03/21/2024 Sex and Gender Information Value Date Recorded Sex Assigned at Not on file Legal Sex Male 12:58 PM SCIENTIFIC INVESTIGATOR Gender Identity Not on file Sexual Orientation Not on file Last Filed Vital Signs Vital Sign Reading Time Taken Comments Blood Pressure 128/58 10/17/2022 8:20 AM SCIENTIFIC INVESTIGATOR Pulse 88 10/17/2022 8:34 AM SCIENTIFIC INVESTIGATOR Temperature 37.6 C (99.6 F) 10/17/2022 8:20 AM SCIENTIFIC INVESTIGATOR Respiratory Rate 16 10/17/2022 8:20 AM SCIENTIFIC INVESTIGATOR Oxygen Saturation 97% 10/17/2022 8:20 AM SCIENTIFIC INVESTIGATOR Inhaled Oxygen Concentration - - Weight 107 kg (236 lb) 10/16/2022 7:57 AM SCIENTIFIC INVESTIGATOR Height 185.4 cm (6' 1 ) 10/16/2022 7:57 AM SCIENTIFIC INVESTIGATOR Body Mass Index 31.14 10/16/2022 7:57 AM SCIENTIFIC INVESTIGATOR Plan of Treatment Upcoming Encounters Date Type Department Care Team (Late st Contact Info) Description 04/03/2025 9:30 AM CDT Office Visit [facility] - Orthopedic Surgery [address] [place] [phone] Yunier Novoa MD [address] [facility] [address] [place], [place] [id number] Health Maintenance Due Date Last Done Comments COLOGSHAYLA (AGES 45-75) - COLON CA SCREENING 1955 CT COLONOGRAPHY - COLON CA SCREENING 1955 FIT - COLON CA SCREENING 1955 FLEX SIG - COLON CA SCREENING 1955 HEPATITIS C SCREENING 03/06/1971 ZOSTER VACCINE (1 of 2) 2003 PNEUMOCOCCAL VACCINE 50+ (2 of 2 - PPSV23) 04/25/2020 04/25/2019 DTAP/TDAP/TD VACCINES (2 - Td or Tdap) 04/03/2023 04/03/2013 COVID-19 VACCINE ( season) 2024 07/29/2023, 08/16/2022, 02/12/2022, Additional history exists COLON MONITORING 09/04/2024 09/04/2014, 08/2014, 09/04/2014, Additional history exists DEPRESSION SCREENING 10/25/2024 03/28/2024 MEDICARE AWV CALENDAR YEAR 2024 INFLUENZA VACCINE (Season Ended) 2025 07/29/2023, 08/12/2021, 08/01/2020, Additional history exists Respiratory Syncytial Virus (RSV) Vaccine Pt: or over 60 yrs (1 - 1-dose 75+ series) 2028 COLONOSCOPY - COLON CA SCREENING 01/15/2032 01/14/2022, 09/04/2014, 09/04/2014, Additional history exists Colorectal Cancer Screening 01/15/2032 HEPATITIS B VACCINE Aged Out No longe r eligible based on patient's age to complete this topic HIB VACCINE Aged Out No longer eligi ble based on patient's age to complete this topic HPV VACCINE Aged Out No longer eligi ble based on patient's age to complete this topic MENINGOCOCCAL (Group B) VACCINE SHARED DECISION-MAKING Aged Out No longer eligible based on patient's age to complete this topic MENINGOCOCCAL GROUPS A/C/Y/W VACCINE Aged Out No longer eligible based on patient's age to complete this topic Medical Devices Implanted Type Area Manager Trading Device Identifier Shelf Expiration Date Model / Serial / Lot Shell Actb 58mm 3 Hl Poly R3 Std Implanted:Qty: 1 on 10/16/2022 by Yunier Novoa MD at [facility] Right: [employer] 03/09/2032 [id number] / / [id number] Screw 6.5mm 40mm Sphrcl Head Hip Actb Implanted:Qty: 1 on 10/16/2022 by Yunier Novoa MD at [facility] Right: [employer] 04/16/2032 [id number] / / [id number] Liner Actb R3 0d 58mm 40mm Xlpe Implanted:Qty: 1 on 10/16/2022 by Yunier Novoa MD at [facility] Right: [employer] 03/26/2031 [id number] / / [id number] Stem Fem 143mm Hip 126d 4 10/07 Lat Ofst Implanted:Qty: 1 on 10/16/2022 by Yunier Novoa MD at [facility] Right: [employer] 05/18/2028 [id number] / / [id number] Head Fem +4mm 10/07 Med Tpr 40mm Hip Blx Implanted:Qty: 1 on 10/16/2022 by Yunier Novoa MD at [facility] Right: [employer] 03/25/2032 [id number] / / [id number] Procedures Procedure Name Priority Date/Time Associated Diagnosis Comments ENDOSCOPY, COLON, SCREENING Routine 09/04/2014 8:12 AM SCIENTIFIC INVESTIGATOR from Last 3 Months or Most Recently Relevant to Health Maintenance Results * ENDOSCOPY, COLON, SCREENING (09/04/2014 8:12 AM SCIENTIFIC INVESTIGATOR) Report Endoscopy POC _ Patient Name: Esteban Jacob Procedure Date: 09/04/2014 8:12 AM Date of : 1955 Admit Type: Outpatient Age: 59 Gender: Male Attending MD: Ryan Chilel MD _ Procedure: Colonoscopy Indications: Screening for colorectal malignant neoplasm Providers: Ryan Chilel MD (Doctor), Gwendolyn Rios RN, Balaji Brink, Patient Support Assistant Referring MD: Kory Rosado (Referring MD) Medicines: See the Anesthesia note for documentation of the administered medications Complications: No immediate complications. _ Procedure: After I obtained informed consent, the scope was passed under direct vision. Throughout the procedure, the patient's blood pressure, pulse, and oxygen saturations were monitored continuously. The Colonoscope was introduced through the anus and advanced to the cecum, identified by appendiceal orifice and ileocecal valve. The colonoscopy was performed without difficulty. The patient tolerated the procedure well. The quality of the bowel preparation was good. The ileocecal valve, appendiceal orifice and rectum were photographed. Impression: - Non-thrombosed external hemorrhoids, non-thrombosed internal hemorrhoids and internal hemorrhoids that prolapse with straining, but spontaneously regress to the resting position (Grade II) found on perianal exam. - Diverticulosis from sigmoid to ascending colon. - Two 8 to 10 mm polyps. Resected and retrieved. - One 8 mm polyp in the transverse colon. Resected and retrieved. - Three 8 to 15 mm polyps. Resected and retrieved. Clips were placed. - Two 8 to 10 mm polyps. Resected and retrieved. Clips were placed. - The examination was otherwise normal. Findings: The perianal exam was abnormal. Findings include non-thrombosed external hemorrhoids, non-thrombosed internal hemorrhoids and internal hemorrhoids that prolapse with straining, but spontaneously regress to the resting position (Grade II). Multiple small and large-mouthed diverticula were found from sigmoid to ascending colon. Two sessile polyps were found in the colon. The polyps were 8 to 10 mm in size. These polyps were removed with a hot snare. Resection and retrieval were complete. Estimated blood loss: none. A sessile polyp was found in the transverse colon. The polyp was 8 mm in size. The polyp was removed with a hot snare. Resection and retrieval were complete. Estimated blood loss: none. Three sessile polyps were found in the colon. The polyps were 8 to 15 mm in size. These polyps were removed with a hot snare. Resection and retrieval were complete. Estimated blood loss: none. Three hemostatic clips were successfully placed. There was no bleeding during the procedure. Two sessile polyps were found in the colon. The polyps were 8 to 10 mm in size. These polyps were removed with a hot snare. Resection and retrieval were complete. To prevent bleeding after the polypectomy, two hemostatic clips were successfully placed. There was no bleeding during the procedure. Estimated blood loss: none. The exam was otherwise without abnormality. _ Recommendation: - Discharge patient to home. - Return to previous diet. - Continue present medications. - No aspirin, ibuprofen, naproxen, or other non-steroidal anti-inflammatory drugs for 10 days after polyp removal. - Repeat colonoscopy in 1 year for surveillance. - Telephone my office for pathology results in 2 days. - Endo clips generally slough off in 18-26 days. The passage of the clips in the stool is harmless. It is recommended to refrain from an RMI for one month following placement of an Endo clip. Procedure Code(s): --- Professional --- 87001, Colonoscopy, flexible, proximal to splenic flexure; with removal of tumor(s), polyp(s), or other lesion(s) by snare technique --- Technical --- 83764, Colonoscopy, flexible, proximal to splenic flexure; with removal of tumor(s), polyp(s), or other lesion(s) by snare technique Diagnosis Code(s): --- Professional --- V76.51, Special screening for malignant neoplasms of colon 211.3, Benign neoplasm of colon 569.0, Anal and rectal polyp 455.3, External hemorrhoids without mention of complication 455.2, Internal hemorrhoids with other complication 562.10, Diverticulosis of colon (without mention of hemorrhage) --- Technical --- V76.51, Special screening for malignant neoplasms of colon 211.3, Benign neoplasm of colon 569.0, Anal and rectal polyp 455.3, External hemorrhoids without mention of complication 455.2, Internal hemorrhoids with other complication 562.10, Diverticulosis of colon (without mention of hemorrhage) CPT copyright 2013 [employer]. All rights reserved. The codes documented in this report are preliminary and upon local city driver review may be revised to meet current compliance requirements. Ryan Chilel MD 09/04/2014 9:14 AM Number of Addenda: 0 Note Initiated On: 09/04/2014 8:12 AM [facility] 09/04/2014 8:1 2 AM SCIENTIFIC INVESTIGATOR Ryan Chilel MD GI PROCEDURE ORDERABLES E dited Result - Final [facility] from Last 3 Months or Most Recently Relevant to Health Maintenance Insurance [facility] MANAGED MEDICARE ADV [facility] MANAGED MEDICARE ADV MANAGED MEDICARE ADV MANAGED MEDICARE ADV [facility] MANAGED MEDICARE ADV [facility] MANAGED MEDICARE ADV [facility] MANAGED MEDICARE ADV [facility] MANAGED MEDICARE ADV [facility] MANAGED MEDICARE ADV Member Subscriber Plan / Payer (Ef fective 2021-Present) Name:Cecil Esteban D Relation to Subscriber:Self Name:ESTEBAN JACOB Demetris Payer ID:[id number] (NAIC) Type:Medicare-Managed Care Address: [place] [id number] [facility] MANAGED MEDICARE ADV [facility] MANAGED MEDICARE ADV [facility] MANAGED MEDICARE ADV Member Subscriber Plan / Payer (Ef fective 2021-Present) Name:CecilEsteban Relation to Subscriber:Self Name:CECILESTEBAN D Payer ID:[id number] (NAIC) Type:Medicare-Managed Care Address: [place] [phone] [facility] MANAGED MEDICARE ADV [facility] MANAGED MEDICARE ADV Member Subscriber Plan / Payer (Ef fective 2021-Present) Name:Esteban Jacob D Relation to Subscriber:Self Name:CECILESTEBAN Payer ID:[id number] (NAIC) Type:Medicare-Managed Care Address: [place] [phone] [facility] MANAGED MEDICARE ADV Member Subscriber Plan / Payer ( fective 2021-Present) Name:Esteban Jacob D Relation to Subscriber:Self Name:CECILESTEBAN D Payer ID:[id number] (NAIC) Type:Medicare-Managed Care Address: [place] [phone] [facility] MANAGED MEDICARE ADV Member Subscriber Plan / Payer ( fective 2021-Present) Name:Esteban Jacob D Relation to Subscriber:Self Name:ESTEBAN JACOB Payer ID:[id number] (NAIC) Type:Medicare-Managed Care Address: [place] [phone] [facility] MANAGED MEDICARE ADV Member Subscriber Plan / Payer ( fective 2021-Present) Name:Esteban Jacob D Relation to Subscriber:Self Name:ESTEBAN JACOB Payer ID:[id number] (NAIC) Type:Medicare-Managed Care Address: [place] [phone] [facility] MANAGED MEDICARE ADV Member Subscriber Plan / Payer (Ef fective 2021-Present) Name:Esteban Jacob D Relation to Subscriber:Self Name:ESTEBAN JACOB Payer ID:[id number] (NAIC) Type:Medicare-Managed Care Address: [place] [phone] [facility] MANAGED MEDICARE ADV Member Subscriber Plan / Payer (Ef fective 2021-Present) Name:Esteban Jacob Relation to Subscriber:Self Name:ESTEBAN JACOB Payer ID:[id number] (NAIC) Type:Medicare-Managed Care Address: [place] [phone] [facility] MANAGED MEDICARE ADV Member Subscriber Plan / Payer (Ef fective 2021-Present) Name:Esteban Jacob Relation to Subscriber:Self Name:ESTEBAN JACOB Payer ID:[id number] (NAIC) Type:Medicare-Managed Care Address: [place] [phone] [facility] MANAGED MEDICARE ADV Member Subscriber Plan / Payer (Ef fective 2021-Present) Name:Esteban Jacob Relation to Subscriber:Self Name:ESTEBAN JACOB Payer ID:[id number] (NAIC) Type:Medicare-Managed Care Address: [place] [phone] [facility] MANAGED MEDICARE ADV Member Subscriber Plan / Payer (Ef fective 2021-Present) Name:Esteban Jacob Relation to Subscriber:Self Name:ESTEBAN JACOB Payer ID:[id number] (NAIC) Type:Medicare-Managed Care Address: [place] [phone] [facility] MANAGED MEDICARE ADV Member Subscriber Plan / Payer (Ef fective 2021-Present) Name:Esteban Jacob Relation to Subscriber:Self Name:ESTEBAN JACOB Payer ID:[id number] (NAIC) Type:Medicare-Managed Care Address: [place] [phone] [facility] MANAGED MEDICARE ADV [facility] MANAGED MEDICARE ADV Member Subscriber Plan / Payer (Ef fective 2021-Present) Name:Esteban Jacob Relation to Subscriber:Self Name:ESTEBAN JACOB Payer ID:[id number] (NAIC) Type:Medicare-Managed Care Address: [place] [phone] [facility] MANAGED MEDICARE ADV [facility] MANAGED MEDICARE ADV Member Subscriber Plan / Payer (Ef fective 2021-Present) Name:Esteban Jacob Relation to Subscriber:Self Name:ESTEBAN JACOB Payer ID:[id number] (NAIC) Type:Medicare-Managed Care Address: [place] [phone] [facility] MANAGED MEDICARE ADV [facility] MANAGED MEDICARE ADV [facility] MANAGED MEDICARE ADV Member Subscriber Plan / Payer (Ef fective 2021-Present) Name:Esteban Jacob Relation to Subscriber:Self Name:ESTBEAN JACOB Payer ID:[id number] (NAIC) Type:Medicare-Managed Care Address: [place] [phone] [facility] MANAGED MEDICARE ADV [facility] MANAGED MEDICARE ADV [facility] MANAGED MEDICARE ADV [facility] MANAGED MEDICARE ADV Member Subscriber Plan / Payer (Ef fective 2021-Present) Name:Esteban Jacob Relation to Subscriber:Self Name:ESTEBAN JACOB Payer ID:[id number] (NAIC) Type:Medicare-Managed Care Address: [place] [phone] [facility] MANAGED MEDICARE ADV Member Subscriber Plan / Payer (Ef fective 2021-Present) Name:Esteban Jacob Relation to Subscriber:Self Name:ESTEBAN JACOB Payer ID:[id number] (NAIC) Type:Medicare-Managed Care Address: [place] [phone] [facility] MANAGED MEDICARE ADV Member Subscriber Plan / Payer ( fective 2021-) Name:Esteban Jacob Relation to Subscriber:Self Name:ESTEBAN JACOB Payer ID:[id number] (NAIC) Type:Medicare-Managed Care Address: [place] [phone] [facility] MANAGED MEDICARE ADV Member Subscriber Plan / Payer ( fective 2021-) Name:Esteban Jacob Relation to Subscriber:Self Name:ESTEBAN JACOB Payer ID:[id number] (NAIC) Type:Medicare-Managed Care Address: [place] [phone] [facility] MANAGED MEDICARE ADV Advance Directives * Full Code (Latest Code Status on File) Date Activated Date Inactivated Comments 10/16/2022 2:31 PM 10/17/2022 3:19 PM Care Teams Financial Services Officer Relationship Specialty Start Date End Date Danny Bai PA-C [address] [facility] [address] [place] [address] PCP - General Physician Coding Compliance Manager 07/23/21
--- NOTE | 2025-03-14 09:37 | IVDEFINITY ---
No available RN for IV access. Definity was attempted. KW
== END 2025-03-14 08:26 | disposition home or self-care (01) ==
PROVIDERS: PCP Internal Medicine; Visit Provider Internal Medicine Cardiovascular Disease
DX: I51.9 Heart disease, unspecified (principal)
CPT/HCPCS: 93306

== ENCOUNTER 2025-04-06 10:54 | Outpatient (CLI) | payer MEDICARE, SELFPAY ==
--- NOTE | ~2025-04-06 | NM_ITS ---
EXAMINATION: NM lavinia stress w perfusion DATE: 04/06/2025 13:14 INDICATION: Heart disease post cardiac bypass surgery TECHNIQUE: Rest images were obtained following intravenous administration of 9 mCi Tc99m tetrofosmin (Myoview). The patient was infused intravenously with Lexiscan (Regadenoson). Then, T7 mCi Tc99m tetr ofosmin (Myoview) was administered intravenously, and stress images were obtained. Data was reconstru cted into short axis and horizontal and vertical long axis SPECT images. Gated SPECT images were also obtained. COMPARISON: None. FINDINGS: There is no definite reversible or fixed perfusion abnormality to suggest ischemia or infar ction. There is normal left ventricular chamber size, wall motion and ejection fraction. Left ventr icular. There is enlargement with calculated end-diastolic volume of 235 mm. There is hypokinesis wit h mild to moderately decreased left ventricular ejection fraction measuring 34%. IMPRESSION: 1. Normal myocardial perfusion at rest and during stress. 2. Left ventricular enlargement with mild to moderately decreased left ventricular ejection fraction measuring 34%. Reviewed, dictated and finalized at location A. IMPRESSION: 1. Normal myocardial perfusion at rest and during stress. 2. Left ventricular enlargement with mild to moderately decreased left ventricu lar ejection fraction measuring 34%.
--- OUTSIDE RECORDS SUMMARY | 2025-04-06 11:00 | XMS_ITS | Data Portability ---
Author Organization [place] [facility] Address [address] [place] [address] Care Team Providers Care Plastic Sewer Name Role Phone GRAYSON WARREN Primary Care Provider [phone] Assessment Encounter Date Assessment Date Assessment LastModified by Organization Details LastModified Time 09/30/2023 09/30/2023 68-year-old male presents today with complaints of chronic neck pain. Pain is primarily axial but occasional radicular symptoms following no specific nerve root distribution. He exhibits weakness with wax specialist strength and tenderness to palpation in the [...] as well as injections and ablations in [place] with reported benefit. Records requested. He was [...] sent for analysis. Patient recently relocated from [place] where recreational marijuana use was legal. Advised the patient that he will need to obtain a [facility] medical marijuana card prior to managing his [...] recorded. Lab drug screen, urine 2022 023 [id number] Not available 10:26:55 drug confirmatio n, urine 2022 023 Not available 10:27:15 Referral None recorded. Procedures None recorded. Surgeries None recorded. Imaging XR, cervical spine, 4 or 5 view 2022 023 [email or web address] 5 In-House Results, For Internal Use Only, Do Not Delete/merge, [id number] 09:41:17 Medication Orders hydrocodone 5 mg-acetamin ophen 325 mg tablet 2022 023 [id number], [address] [place], [place], [id number], 09:38:25 Patient TargetsNo targets recorded. Patient Instructions Encounter Date Encounter Id Patient Instructions Last Modified By Organization Details Last Modified Time 09/30/2023 [id number] A mid-level prov ider in my office [...] a higher level of overall function and buddhism of their activities of daily living. It [...] breathing, or even possibly from bowel obstruction). [employer] Prescription Drug Monitoring Database has been queried [...] disadvantages, and provided the patient with the [facility] pamphlet. Not available 09/30/2023 09:35:19 Reason for Referral None Reported. Results Created Date Observation Date Name Description Value Unit Range Abnormal Flag Note LastModifiedBy Organization Detail LastModifiedTime 09/30/20 XR, cervi jefe spine , 4 or 5 view No observ ation record ed. In-House Results For Internal Use Only, Do Not Delete/merge, [id number] 09/30/2023 09:34:33 09/30/20 23 05/30/2022 MRI, cervi [...] Address Organization Details Recorded Time Neck pain 52583710 Active 2022 Mauro Gilliland MD [address] [place], [address], [facility] Orthopaedic [facility] 3 09:34:42 History of cervical spine fusion 3923681267105 Active 2022 Mauro Gilliland MD [address] [place], [address], [facility] Orthopaedic [facility] 3 09:34:44 Cervical spondylosis 185694039 Active 2022 Mauro Gilliland MD [address] [place], [address], [facility] Orthopa[facility] 3 09:34:45 Cervical kyphosis 158371002 Active 2022 Mauro Gilliland MD [address] [place], [address], [facility] Orthopaedic [facility] 3 09:34:45 Cervical radiculitis 22856967 Active 2022 Mauro Gilliland MD [address] [place], [address], [facility] Orthopaedic [facility] 3 09:34:46 Degeneratio n of cervical interverteb ral disc 75097359 Active 2022 Mauro Gilliland MD [address] [place], [address], [facility] Orthopaedic [facility] 3 09:34:47 Long-term current use of opiate analgesic drug 4053510927816 08 Active 2022 Mauro Gilliland MD [address] [place], [address], [facility] Orthopaedic [facility] 3 09:34:48 Problem Notes None recorded. Procedures Surgical History Date Name Laterality Status Provider Name and Address Organization Details Recorded Time Knee Surgery completed [facility] 09/30/2023 09:10:11 Hip Surgery completed [facility] 09/30/2023 09:10:11 Shoulder Surgery completed [facility] 09/30/2023 09:10:11 Joint Replacement completed [facility] 09/30/2023 09:10:11 Heart Surgery completed [facility] 09/30/2023 09:10:11 Imaging Results None recorded. Procedure Notes None recorded. Medical Equipment None [...] Address Organization Details Last Updated DateTime 09/30/2023 357903.35 g 138 mm[Hg] 75 mm[Hg] [facility] 09/30/2023 09:19:07 Social History Question Answer Notes [...] SNOMED-CT Code Diagnosis ICD10 Code Diagnosis Note [id number] Mauro Gilliland MD [place] [address] [place] [address] 09/30/2023 08:24:45 09/30/2023 09:41:17 Neck pain 29406290 M54.2 Long-term current use of opiate analgesic drug 1644164647 75869 Z79.891 Cervical spondylosis 387 933986 M47.812 Cervical kyphosis 350998 001 M40.202 Degenerati on of cervical intervertebral disc 06810826 M50.30 History of cervical spine fusion 3116745461 101 Z98.1 Cervical radiculopathy 07259778 M54.12 Health Concerns Section Related Observation LastModified by Organization Detai ls LastModified Time None Recorded Concern Status LastModified by Organization Details LastModified Time None Recorded Advance Directives Directive Y: Payers Insurance Date Sequence Insurance Name Policy Number Policy Price Covered Member ID Price Member ID Guarantor Name 10/06/[address] [facility] (MEDICARE REPLACEMENT/A DVANTAGE - HMO) [id number] Sam Colby [id number] Sam Colby Notes Date Note Type Note [...] with no improvement. Patient reports injections and managed care nurse in the past back home in [place]. Patient reports taking Hydrocodone and phentermine for relief. Medications were reviewed and updated in chart. No other changes reported. Mauro Gilliland MD [facility] [place], [address], [facility] [place] 09/30/2023 13:01:58
--- OUTSIDE RECORDS SUMMARY | 2025-04-06 11:01 | XMS_ITS | Patient Health Record ---
Author Organization [facility] Address [address] [facility] [address] [place] [address] Care Team Providers Care Compliance Attorney Name Role Phone CHARLI BONILLA Unavailable [phone] Reason For Referral No Information Problems Problem Type SNOMED Code ICD Code Onset Dates Problem Status W/U Status Risk Notes Problem Atherosclerotic heart disease of [place] coronary artery without angina pectoris (968993923453573) CAD in [place] artery (I25.10) Active confirmed Plan Of Treatment No Information Insurance Providers Payer Name Payer Address Payer Phone Subscriber Number Group Number Insured Name Patient Relationship to Insured Coverage Start Date Coverage End Date [employer] [facility] [address] [place] [address] [id number] Sam Colby Self - patient is the insured [place] [address] [address] [place], [place] [id number] Sam Colby Self - patient is the insured
--- OUTSIDE RECORDS SUMMARY | 2025-04-06 11:01 | XMS_ITS | Clinical Summary ---
Author Organization [facility] Address [address] [address] Care Team Providers Care Certified Corporate Travel Executive Name Role Phone Hitesh Aguilar Primary Care Provider [phone] Source Comments [facility],non-owned Affiliates and Associated Physician Practices is amultiple site organization consisting of ambulatory clinics and hospital sitesin [place], [place] and [place]. This disclosure is being madepursuant to the Care Everywhere program and may not contain all information available regarding this patient. Last updated 18.[facility] Allergies No known active allergies Medications * [...] morning and evening meal Active HYDROcodone-acet aminophen ([place]) 5-325 MG tablet Take 1 (one) tablet [...] Diagnosed Date Arthritis of right hip 10/16/2022 Encounters Date Type Department Care Team Description 04/03/2025 9:30 AM CDT Office Visit [facility] - Orthopedic Surgery [address] [place] [address] Yunier Novoa MD History of right hip replacement (Primary Dx) 04/03/2025 8:51 AM CDT - 04/03/2025 11:59 PM CDT Hospital Encounter [facility] - Orthopedics [address] [place] [address] Yunier Novoa MD Discharge Disposition: Home or Self Care 04/03/2025 Travel 04/02/2025 Orders Only [facility] - Orthopedic Surgery [address] [place] [address] Yunier Novoa MD History of total right hip replacement from Last 3 Months Immunizations Immunization Administration Dates Next Due INFLUENZA [...] Date Recorded Patient Health Questionnaire-2 Score 0 04/03/2025 Sex and Gender Information Value Date Recorded Sex Assigned at Not on file Legal Sex Male 12:58 PM PUBLIC RELATIONS SUPERVISOR Gender Identity Not on file Sexual Orientation Not on file Last Filed Vital Signs Vital Sign Reading Time Taken Comments Blood Pressure 128/58 10/17/2022 8:20 AM PUBLIC RELATIONS SUPERVISOR Pulse 88 10/17/2022 8:34 AM PUBLIC RELATIONS SUPERVISOR Temperature 37.6 C (99.6 F) 10/17/2022 8:20 AM PUBLIC RELATIONS SUPERVISOR Respiratory Rate 16 10/17/2022 8:20 AM PUBLIC RELATIONS SUPERVISOR Oxygen Saturation 97% 10/17/2022 8:20 AM PUBLIC RELATIONS SUPERVISOR Inhaled Oxygen Concentration - - Weight 107 kg (236 lb) 10/16/2022 7:57 AM PUBLIC RELATIONS SUPERVISOR Height 185.4 cm (6' 1) 10/16/2022 7:57 AM PUBLIC RELATIONS SUPERVISOR Body Mass Index 31.14 10/16/2022 7:57 AM PUBLIC RELATIONS SUPERVISOR Plan of Treatment Health Maintenance Due Date Last Done Comments COLOGUARD (AGES 45-75) - COLON CA SCREENING 1955 CT COLONOGRAPHY - COLON CA SCREENING 1955 FIT - COLON CA SCREENING 1955 FLEX SIG - COLON CA SCREENING 1955 HEPATITIS C SCREENING 03/06/1971 ZOSTER VACCINE (1 of 2) 2003 PNEUMOCOCCAL VACCINE 50+ (2 of 2 - PCV20 or PCV21) 04/25/2020 04/25/2019 DTAP/TDAP/TD VACCINES (2 - Td or Tdap) 04/03/2023 04/03/2013 COVID-19 VACCINE ( season) 2024 07/29/2023, 08/16/2022, 02/12/2022, Additional history exists MEDICARE AWV CALENDAR YEAR 2024 INFLUENZA VACCINE (Season Ended) 2025 07/29/2023, 08/12/2021, 08/01/2020, Additional history exists Respiratory Syncytial Virus (RSV) Vaccine Pt: or over 60 yrs (1 - 1-dose 75+ series) 2028 COLON MONITORING 01/15/2032 01/14/2022, 08/2014, 09/04/2014, Additional history exists COLONOSCOPY - COLON CA SCREENING 01/15/2032 01/14/2022, 09/04/2014, 09/04/2014, Additional history exists Colorectal Cancer Screening 01/15/2032 DEPRESSION SCREENING Completed 04/03/2025, 03/28/20 HEPATITIS B VACCINE Aged Out No longe [...] this topic Medical Devices Implanted Type Area Farmhand Device Identifier Shelf Expiration Date Model / Serial / Lot Shell Actb 58mm 3 Hl Poly R3 Std Implanted:Qty: 1 on 10/16/2022 by Yunier Novoa MD at [facility] Right: Hip [employer] 03/09/2032 [id number] / / [id number] Screw 6.5mm 40mm Sphrcl Head Hip Actb Implanted:Qty: 1 on 10/16/2022 by Yunier Novoa MD at [facility] Right: Hip [employer] 04/16/2032 [id number] / / [id number] Liner Actb R3 0d 58mm 40mm Xlpe Implanted:Qty: 1 on 10/16/2022 by Yunier Novoa MD at [facility] Right: Hip [employer] 03/26/2031 [id number] / / [id number] Stem Fem 143mm Hip 126d 4 10/07 Lat Ofst Implanted:Qty: 1 on 10/16/2022 by Yunier Novoa MD at [facility] Right: Hip [employer] 05/18/2028 [id number] / / [id number] Head Fem +4mm 10/07 Med Tpr 40mm Hip Blx Implanted:Qty: 1 on 10/16/2022 by Yunier Novoa MD at [facility] Right: Hip [employer] 03/25/2032 [id number] / / [id number] Procedures Procedure Name Priority Date/Time Associated Diagnosis Comments XR PELVIS W RIGHT HIP 2VW Routine 04/03/2025 8:54 AM CDT History of total right hip replacement ENDOSCOPY, COLON, SCREENING Routine 09/04/2014 8:12 AM PUBLIC RELATIONS SUPERVISOR from Last 3 Months or Most Recently Relevant to Health Maintenance Results * XR Pelvis W Right Hip 2Vw (04/03/2025 8:54 AM CDT) Anatomical Region Laterality Modality Pelvis Radiographic Doris ging 04/03/2025 9:08 AM CDT Narrative 04/03/2025 9:13 AM CDT PROCEDURE: XR PELVIS W RIGHT HIP 2VW DATE/TIME OF EXAM: 04/03/2025 8:54 AM CLINICAL INFORMATION: None relevant/not provided if blank. Indication: Z96.641: History of total right hip replacement Additional History: FINDINGS/IMPRESSION: No acute fracture is seen. No dislocation is seen. Bilateral hip arthroplasties are noted. Some clips are seen in the right groin. Minimal vascular calcification identified. Edited by Vilma Gale on 04/03/2025 9:12 AM > Interpreting Provider: Mark Cobb MD on 04/03/2025 9:13 AM Procedure Note Mark Cobb MD - 04/03/2025 PROCEDURE: XR PELVIS W RIGHT HIP 2VW DATE/TIME OF EXAM: 04/03/2025 8:54 AM CLINICAL INFORMATION: None relevant/not provided if blank. Indication: Z96.641: History of total right hip replacement Additional History: FINDINGS/IMPRESSION: No acute fracture is seen. No dislocation is seen. Bilateral hip arthroplasties are noted. Some clips are seen in the right groin.Minimal vascular calcification identified. Edited by Vilma Gale on 04/03/2025 9:12 AM > Interpreting Provider: Mark Cobb MD on 04/03/2025 9:13 AM Yunier Novoa MD DIAGNOSTIC IMAGING ORDERABL ES Final Result * ENDOSCOPY, COLON, SCREENING (09/04/2014 8:12 AM PUBLIC RELATIONS SUPERVISOR) Report Endoscopy POC _ Patient Name: Esteban Jacob Procedure Date: 09/04/2014 8:12 AM Date of : 1955 Admit Type: Outpatient Age: 59 Gender: Male Attending MD: Ryan Chilel MD _ Procedure: Colonoscopy Indications: Screening for colorectal malignant neoplasm Providers: Ryan Chilel MD (Doctor), Gwendolyn iRos, RN, Balaji Brink, Station Engineer Chief Referring MD: Kory Rosado (Referring MD) Medicines: [...] Endo clip. Procedure Code(s): --- Professional --- 80727, Colonoscopy, flexible, proximal to splenic flexure; with removal of tumor(s), polyp(s), or other lesion(s) by snare technique --- Technical --- 25304, Colonoscopy, flexible, proximal to splenic flexure; with [...] (without mention of hemorrhage) CPT copyright 2013 [employer]. All rights reserved. The codes documented in this report are preliminary and upon safety supervisor review may be revised to meet current compliance requirements. Ryan Chilel MD 09/04/2014 9:14 AM Number of Addenda: 0 Note Initiated On: 09/04/2014 8:12 AM [facility] ENDOSCOPY 09/04/2014 8:12 AM PUBLIC RELATIONS SUPERVISOR us Ryan Chilel MD GI PROCEDURE ORDERABLES E dited Result - Final [facility] ENDOSCOPY from Last 3 Months or Most Recently Relevant to Health Maintenance Insurance [facility] MANAGED MEDICARE ADV Member Subscriber Plan / Payer (Ef fective 2023-Present) Name:Cecil Esteban Willson Relation to Subscriber:Self Name:Cecil Esteban Willson Payer ID:[id number] (NAIC) Type:Medicare-Managed Care Address: [place] [id number] MANAGED MEDICARE ADV Member Subscriber Plan / Payer ( fective 2023-Present) Name:CecilEsteban Relation to Subscriber:Self Name:CecilEsteban Payer ID:[id number] (NAIC) Type:Medicare-Managed Care Address: [place] [id number] ANTHEM Member Subscriber Plan / Payer ( fective 2013-Present) Name:Esteban Jacob Relation to Subscriber:Spouse Name:ASTER JACOB Subscriber ID:Not on file Payer ID:[id number] (NAIC) Group ID:[id number] Type:O Address: [address] MANAGED MEDICARE ADV Member Subscriber Plan / Payer ( fective 2021-Present) Name:Esteban Jacob Relation to Subscriber:Self Name:ESTEBAN JACOB Payer ID:[id number] (NAIC) Type:Medicare-Managed Care Address: [place] [phone] [facility] MANAGED MEDICARE ADV Member Subscriber Plan / Payer ( fective 2021-Present) Name:Esteban Jacob D Relation to Subscriber:Self Name:ESTEBAN JACOB Payer ID:[id number] (NAIC) Type:Medicare-Managed Care Address: [place] [id number] [facility] MANAGED MEDICARE ADV Member Subscriber Plan / Payer ( fective 2021-) Name:Jacki Jacobic D Relation to Subscriber:Self Name:ESTEBAN JACOB Demetris Payer ID:[id number] (NAIC) Type:Medicare-Managed Care Address: [place] [phone] [facility] MANAGED MEDICARE ADV Member Subscriber Plan / Payer ( fective 2021-) Name:Cecil Esteban D Relation to Subscriber:Self Name:ESTEBAN JACOB Demetris Payer ID:[id number] (NAIC) Type:Medicare-Managed Care Address: [place] [phone] [facility] MANAGED MEDICARE ADV Member Subscriber Plan / Payer ( fective 2021-) Name:Cecil Esteban D Relation to Subscriber:Self Name:CECILESTEBAN Demetris Payer ID:[id number] (NAIC) Type:Medicare-Managed Care Address: [place] [id number] [facility] MANAGED MEDICARE ADV [facility] MANAGED MEDICARE ADV [facility] MANAGED MEDICARE ADV Member Subscriber Plan / Payer (Ef fective 2021-Present) Name:Esteban Jacob D Relation to Subscriber:Self Name:ESTEBAN JACOB D Payer ID:[id number] (NAIC) Type:Medicare-Managed Care Address: [address] MANAGED MEDICARE ADV Member Subscriber Plan / Payer (Ef fective 2021-Present) Name:Esteban Jacob D Relation to Subscriber:Self Name:ESTEBAN JACOB D Payer ID:[id number] (NAIC) Type:Medicare-Managed Care Address: [place] [phone] [facility] MANAGED MEDICARE ADV Member Subscriber Plan / Payer (Ef fective 2021-Present) Name:Esteban Jacob D Relation to Subscriber:Self Name:ESTEBAN JACOB D Payer ID:[id number] (NAIC) Type:Medicare-Managed Care Address: [place] [id number] [facility] MANAGED MEDICARE ADV [facility] MANAGED MEDICARE ADV [facility] MANAGED MEDICARE ADV Member Subscriber Plan / Payer (Ef fective 2021-Present) Name:CecilEsteban D Relation to Subscriber:Self Name:CECILJACKIESTEBAN D Payer ID:[id number] (NAIC) Type:Medicare-Managed Care Address: [place] [id number] [facility] MANAGED MEDICARE ADV [facility] MANAGED MEDICARE ADV [facility] MANAGED MEDICARE ADV [facility] MANAGED MEDICARE ADV [facility] MANAGED MEDICARE ADV Member Subscriber Plan / Payer ( fective 2021-) Name:Esteban Jacob D Relation to Subscriber:Self Name:ESTEBAN JACOB Payer ID:[id number] (NAIC) Type:Medicare-Managed Care Address: [place] [id number] [facility] MANAGED MEDICARE ADV Member Subscriber Plan / Payer ( fective 2021-) Name:Esteban Jacob D Relation to Subscriber:Self Name:ESTEBAN AJCOB Payer ID:[id number] (NAIC) Type:Medicare-Managed Care Address: [place] [id number] [facility] MANAGED MEDICARE ADV Member Subscriber Plan / Payer ( fective 2021-) Name:Esteban Jacob D Relation to Subscriber:Self Name:ESTEBAN JACOB Payer ID:[id number] (NAIC) Type:Medicare-Managed Care Address: [place] [phone] [facility] MANAGED MEDICARE ADV Member Subscriber Plan / Payer ( fective 2021-) Name:Esteban Jacob D Relation to Subscriber:Self Name:ESTEBAN JACOB Payer ID:[id number] (NAIC) Type:Medicare-Managed Care Address: [place] [phone] [facility] MANAGED MEDICARE ADV Member Subscriber Plan / Payer (Ef fective 2021-Present) Name:Esteban Jacob D Relation to Subscriber:Self Name:ESTEBAN JACOB D Payer ID:[id number] (NAIC) Type:Medicare-Managed Care Address: [place] [phone] [facility] MANAGED MEDICARE ADV Member Subscriber Plan / Payer (Ef fective 2021-Present) Name:CecilEsteban D Relation to Subscriber:Self Name:CECILESTEBAN D Payer ID:[id number] (NAIC) Type:Medicare-Managed Care Address: [address] MANAGED MEDICARE ADV Member Subscriber Plan / Payer (Ef fective 2021-Present) Name:Esteban Jacob D Relation to Subscriber:Self Name:CECILJACKIESTEBAN D Payer ID:[id number] (NAIC) Type:Medicare-Managed Care Address: [address] MANAGED MEDICARE ADV Member Subscriber Plan / Payer (Ef fective 2021-Present) Name:CecilEsteban D Relation to Subscriber:Self Name:CECILESTEBAN D Payer ID:[id number] (NAIC) Type:Medicare-Managed Care Address: [place] [phone] [facility] MANAGED MEDICARE ADV [facility] MANAGED MEDICARE ADV [facility] MANAGED MEDICARE ADV [facility] MANAGED MEDICARE ADV [facility] MANAGED MEDICARE ADV [facility] MANAGED MEDICARE ADV [facility] MANAGED MEDICARE ADV [facility] MANAGED MEDICARE ADV Member Subscriber Plan / Payer (Ef fective 2021-Present) Name:Esteban Jacob D Relation to Subscriber:Self Name:ESTEBAN JACOB D Payer ID:[id number] (NAIC) Type:Medicare-Managed Care Address: [place] [phone] [facility] MANAGED MEDICARE ADV Member Subscriber Plan / Payer (Ef fective 2021-Present) Name:Esteban Jacob D Relation to Subscriber:Self Name:ESTEBAN JACOB Payer ID:[id number] (NAIC) Type:Medicare-Managed Care Address: [place] [phone] [facility] MANAGED MEDICARE ADV Member Subscriber Plan / Payer (Ef fective 2021-Present) Name:Esteban Jacob D Relation to Subscriber:Self Name:ESTEBAN JACOB D Payer ID:[id number] (NAIC) Type:Medicare-Managed Care Address: [place] [phone] [facility] MANAGED MEDICARE ADV Advance Directives * Full Code (Latest Code Status on File) Date Activated Date Inactivated Comments 10/16/2022 2:31 PM 10/17/2022 3:19 PM Care Teams Certified Corporate Travel Executive Relationship Specialty Start Date End Date Hitesh Aguilar DO [address] [place], [place] [id number] PCP - General Internal Medicine 04/03/25
--- OUTSIDE RECORDS SUMMARY | 2025-04-06 11:01 | XMS_ITS | Encounter Summary ---
Author Organization [facility] Address [address] [address] Care Team Providers Care Joint Filler Name Role Phone Danny Bai PA-C Primary Care Provide r Hitesh Aguilar DO Primary Care Provider [phone] Encounter Details Date Type Department Care Team (Late st Contact Info) Description 04/02/2025 Orders Only [facility] - Orthopedic Surgery [address] [place] [phone] Yunier Novoa MD [address] [address] History of total right hip replacement Social History Tobacco Use Types Packs/Day Years Used Date Smoking Tobacco: Never Smokeless Tobacco: Never Alcohol Use Standard Drinks/Week Comments Yes 0 (1 standard drink = 0.6 oz pur e alcohol) weekends PHQ-2 Answer Date Recorded Patient Health Questionnaire-2 Score 0 04/03/2025 Sex and Gender Information Value Date Recorded Sex Assigned at Not on file Legal Sex Male 12:58 PM STATIONARY STEAM ENGINEER Gender Identity Not on file Sexual Orientation Not on file documented as of this encounter Functional Status * Over the past 2 weeks, how often have you been bothered by any of the following problems? Question Answer Date of Assessment Author Patient Health Questionnaire -2 Score 0 04/03/2025 9:01 AM CDT Ipad, [facility] Orth oipad3 * Little interest or pleasure in doing things Answer Date of Assessment Author Not at all 04/03/2025 9:01 AM CDT Ipad, Slu bel Orthoipad3 * Feeling down, depressed, or hopeless Answer Date of Assessment Author Not at all 04/03/2025 9:01 AM CDT Ipad, Slu bel Orthoipad3 documented as of this encounter Plan of Treatment Not on file documented as of this encounter Results * XR Pelvis W Right Hip [...] MD DIAGNOSTIC IMAGING ORDERABL ES Final Result documented in this encounter Visit Diagnoses Diagnosis History of total right hip replacement- Primary History of total right hip replacement documented in this encounter Care Teams Joint Filler Relationship Specialty Start Date End Date Danny Bai PA-C [address] [place] [address] PCP - General Physician Drafter Electromechanical 07/23/21 04/02/25 Hitesh Aguilar DO [address] [place] [address] PCP - General Internal Medicine 04/03/25 documented as of this encounter
--- OUTSIDE RECORDS SUMMARY | 2025-04-06 11:01 | XMS_ITS | Clinical Summary ---
Author Organization [facility] Address [address] [place] [address] Care Team Providers Care Furnace Clerk Name Role Phone Danny Bai Primary Care Provider Edgar Still MD Unavailable [phone] Darian Villalpando NP Unavailable Allergies No known [...] wound care. Left lower extremity venous reflux permit specialist ordered for further evaluation as the left lower extremity he reports is chronically swollen. Assessment & Plan (12/31/2023 11:15 AM FRAME STRIPPER AND CRUSHER): Lower extremities with 1+ pitting edema bilaterally. [...] lesion 09/15/2021 Coronary artery disease invo lving [place] coronary artery of [place] heart without angina pectoris 09/03/2021 Overview (09/03/2021): Added automatically from request for surgery [id number] Painful orthopaedic hardware 01/07/2021 Overview (01/07/2021): Added automatically from request for surgery [id number] Class 1 obesity with body ma ss index (BMI) of 32.0 to 32.9 in adult 10/11/2019 Chronic pain 10/11/2019 Risk factors for obstructive sleep apnea 019 Left rotator cuff tear arthropathy 09/25/2019 Overview (09/25/2019): Added automatically from request for surgery [id number] History of left hip replacement 09/19/2019 Aftercare [...] of incident. Myocardial infarction (HCC) sile nt OR found on stress test Asthma Hyperlipidemia Loss [...] on file Legal Sex Male 2:47 PM FRAME STRIPPER AND CRUSHER Gender Identity Not on file Sexual Orientation [...] 4:16 PM CDT Height 185.4 cm (6' 1) 03/02/2024 4:16 PM CDT Body Mass Index [...] Discontinued 01/14/2022 Medical Devices Implanted Type Area Office Administrative Assistant Device Identifier Shelf Expiration Date Model / Serial / Lot Tornier Inc [id number] Tornier Aequalis Perform 15mm Press Fit Long Post Shoulder - [id number] Implanted:Qty: 1 on 10/13/2019 by Damir Dale MD at [facility] Left: Shoulder [employer] Inc 07/20/2024 [id number] / / [id number] Tornier Inc [id number] Tornier Aequalis Perform 25mm Reverse Shoulder Standard Baseplate - [id number] Implanted:Qty: 1 on 10/13/2019 by Damir Dale MD at [facility] Left: Shoulder [employer] [id number] / / [id number] [employer]ier Inc [id number] Aequalis Perform Reversed 5mm 30mm Peripheral Glenoid Screw - [id number] Implanted:Qty: 1 on 10/13/2019 by Damir Dale MD at [facility] Left: Shoulder [employer] [id number] / / Tornier Inc [id number] Aequalis Perform Reversed 5mm 38mm Peripheral Glenoid Screw - [id number] Implanted:Qty: 1 on 10/13/2019 by Damir Dale MD at [facility] Left: Shoulder [employer] [id number] / / Tornier Inc [id number] Tornier Aequalis Perform Od39 Mm Lateralize Reverse Shoulder +3 Mm Sphere Glenoid - [id number] Implanted:Qty: 1 on 10/13/2019 by Damir Dale MD at [facility] Left: Shoulder [employer] Inc 07/10/2024 [id number] / / [id number] Tornier Inc [id number] Insert 12.5d 6+ Mm 39mm Humeral Flex Shoulder Sterile - [id number] Implanted:Qty: 1 on 10/13/2019 by Damir Dale MD at [facility] Left: Shoulder [employer] 09/06/2024 [id number] / / [id number] Tornier Inc [id number] Aequalis Ascend Flex Reverse Shoulder +0mm 3.5mm High Offset Tray - [id number] Implanted:Qty: 1 on 10/13/2019 by Damir Dale MD at [facility] Left: Shoulder [employer] 09/18/2024 [id number] / / [id number] Tornier Inc [id number] Stem Humeral 70mm Shoulder Pressfit Aequalis Ascend Flex Ptc 132.5d 2b Standard - [id number] - [id number] Implanted:Qty: 1 on 10/13/2019 by Damir Dale MD at [facility] Left: Shoulder [employer] 03/16/2024 [id number] / [id number] / Procedures Procedure Name Priority Date/Time Associated Diagnosis Comments COLONOSCOPY 01/14/2022 11:51 AM CDT from Last 3 Months or Most Recently Relevant to Health Maintenance Results * COLONOSCOPY (01/14/2022 11:51 AM CDT) Anatomical Region Laterality Modality Other Narrative Procedure Note Edmund Gordon MD - 01/14/2022 11:51 AM CDT ENDOSCOPY LAB Patient Name: Sam Jacob Procedure Date: 01/14/2022 11:51 AM Admit Type: Outpatient Room: [facility] 3 Date of : 1955 Instrument [...] to Subscriber:Self Name:Sam Jacob Payer ID:[id number] (NAIC) Type:[facility] MEDICARE Address: [place] [id number] UHC MEDICARE ADVANTAGE Member Subscriber Plan / Payer (Ef fective 2015-Present) Name:Sam Jacob Relation to Subscriber:Spouse Name:ASTER JACOB Date of :1959 (Home) Address: [address] [place] [address] Payer ID:[id number] (NAIC) Group ID:[id number] Type:[employer] Address: [address] [place] [id number] MEDICARE Advance Directives For more information, please contact: [phone] * Full Code (Latest Code Status on File) Date Activated Date Inactivated Comments 09/15/2021 2:42 PM 09/20/2021 6:16 PM * Full Code Date Activated Date Inactivated Comments 10/13/2019 12:02 PM 10/14/2019 5:29 PM Care Teams Furnace Clerk Relationship Specialty Start Date End Date Danny Bai PA [address] [place] [address] PCP - General 12/27/20 Edgar Still MD [address] [place] [address] Referring Physician Cardiology 09/03/21 Darian Villalpando NP [address] [place] [address] Referring Physician Nurse Practitioner 01/07/24
--- OUTSIDE RECORDS SUMMARY | 2025-04-06 11:01 | XMS_ITS | Referral Summary ---
Author Organization [facility] Address [address] [place] [address] Care Team Providers Care Under Sheriff Name Role Phone Danny Bai Primary Care Provider Edgar Still MD Unavailable [phone] Darian Villalpando NP Unavailable Allergies No known [...] wound care. 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 [...] lesion 09/15/2021 Coronary artery disease invo lving [place] coronary artery of [place] heart without angina pectoris 09/03/2021 Overview (09/03/2021): Added automatically from request for surgery [id number] Painful orthopaedic hardware 01/07/2021 Overview (01/07/2021): Added automatically from request for surgery [id number] Class 1 obesity with body ma ss index (BMI) of 32.0 to 32.9 in adult 10/11/2019 Chronic pain 10/11/2019 Risk factors for obstructive sleep apnea 019 Left rotator cuff tear arthropathy 09/25/2019 Overview (09/25/2019): Added automatically from request for surgery [id number] History of left hip replacement 09/19/2019 Aftercare [...] on file Legal Sex Male 2:47 PM AIDS COUNSELOR Gender Identity Not on file Sexual Orientation [...] on file Medical Devices Implanted Type Area Drill Hand Device Identifier Shelf Expiration Date Model / Serial / Lot Tornier Inc [id number] Tornier Aequalis Perform 15mm Press Fit Long Post Shoulder - [id number] Implanted:Qty: 1 on 10/13/2019 by Damir Dale MD at [facility] Left: Shoulder [employer] 07/20/2024 [id number] / / [id number] Tornier Inc [id number] Tornier Aequalis Perform 25mm Reverse Shoulder Standard Baseplate - [id number] Implanted:Qty: 1 on 10/13/2019 by Damir Dale MD at [facility] Left: Shoulder [employer] WIC776 / / [id number] Tornier Inc [id number] Aequalis Perform Reversed 5mm 30mm Peripheral Glenoid Screw - [id number] Implanted:Qty: 1 on 10/13/2019 by Damir Dale MD at [facility] Left: Shoulder [employer] Inc TIU373 / / Tornier Inc [id number] Aequalis Perform Reversed 5mm 38mm Peripheral Glenoid Screw - [id number] Implanted:Qty: 1 on 10/13/2019 by Damir Dale MD at [facility] Left: Shoulder [employer] Inc IPQ515 / / Tornier Inc [id number] Tornier Aequalis Perform Od39 Mm Lateralize Reverse Shoulder +3 Mm Sphere Glenoid - [id number] Implanted:Qty: 1 on 10/13/2019 by Damir Dale MD at [facility] Left: Shoulder [employer] Inc 07/10/2024 VVS517 / / [id number] Tornier Inc [id number] Insert 12.5d 6+ Mm 39mm Humeral Flex Shoulder Sterile - [id number] Implanted:Qty: 1 on 10/13/2019 by Damir Dale MD at [facility] Left: Shoulder [employer]co Inc 09/06/2024 [id number] / / [id number] Tornier Inc [id number] Aequalis Ascend Flex Reverse Shoulder +0mm 3.5mm High Offset Tray - [id number] Implanted:Qty: 1 on 10/13/2019 by Damir Dale MD at [facility] Left: Shoulder [employer]co Inc 09/18/2024 IBR672 / / [id number] Tornier Inc [id number] Stem Humeral 70mm Shoulder Pressfit Aequalis Ascend Flex Ptc 132.5d 2b Standard - [id number] - [id number] Implanted:Qty: 1 on 10/13/2019 by Damir Dale MD at [facility] Left: Shoulder [employer]co Inc 03/16/2024 [id number] / [id number] / Procedures Procedure Name Priority Date/Time Associated Diagnosis Comments COLONOSCOPY 01/14/2022 11:51 AM CDT from Last 3 Months or Most Recently Relevant to Health Maintenance Results * COLONOSCOPY (01/14/2022 11:51 AM CDT) Anatomical Region Laterality Modality Other Narrative Procedure Note Edmund Gordon MD - 01/14/2022 11:51 AM CDT ENDOSCOPY LAB Patient Name: Sma Jacob Procedure Date: 01/14/2022 11:51 AM Admit Type: Outpatient Room: [facility] Date of : 1955 Instrument Name: [id number] [...] Most Recently Relevant to Health Maintenance Insurance [facility] MEDICARE ADVANTAGE [facility] MEDICARE ADVANTAGE [facility] [place] [id number] [facility] MEDICARE Advance Directives For more information, please contact: [phone] * Full Code (Latest Code Status on File) Date Activated Date Inactivated Comments 09/15/2021 2:42 PM 09/20/2021 6:16 PM * Full Code Date Activated Date Inactivated Comments 10/13/2019 12:02 PM 10/14/2019 5:29 PM Care Teams Under Sheriff Relationship Specialty Start Date End Date Danny Bai PA [address] [place] [address] PCP - General 12/27/20 Edgar Still MD [address] [place] [address] Referring Physician Cardiology 09/03/21 Darian Villalpando NP [address] [place] [address] Referring Physician Nurse Practitioner 01/07/24
--- NOTE | 2025-04-06 11:25 | EST_ITS ---
Patient Info Name: Sam Colby Age: 70 years : 1955 Gender: Male Ht: 73 in Wt: 250 lbs BSA: 2.45 m2 HR: 66 bpm BP: 165 / 111 mmHg Exam Date: 04/06/2025 11:25 AM Patient Status: O Admit Date: 04/06/2025 Exam Type: CA stress lavinia w NM A regadenoson stress test was performed. Staff Referring Physician: Kt Simmons DO Attending Provider: Kt Simmons DO Exercise Technologist: Juli Pedersen Exercise Physician: Kt Simmons DO Summary 1. 1. Negative lexiscan stress test for ischemic ST changes by ECG criteria. 2. 2. Baseline hypertension. 3. 3. Nuclear scan to follow and will be reported separately. Please correlate with it. 4. 4. Patient informed of the above results. Protocol: Lexiscan Stress ECG Details Stage: REST Duration (min): 2 min : 14 sec HR (bpm): 65 SBP (mmHg): 165 DBP (mmHg): 111 Stage: REST Duration (min): 5 min : 22 sec HR (bpm): 64 SBP (mmHg): 165 DBP (mmHg): 111 Stage: STAGE 1 Duration (min): 1 min : 0 sec HR (bpm): 70 SBP (mmHg): 171 DBP (mmHg): 110 Stage: RECOVERY Duration (min): 1 min : 0 sec HR (bpm): 77 SBP (mmHg): 171 DBP (mmHg): 110 Stage: RECOVERY Duration (min): 2 min : 0 sec HR (bpm): 73 SBP (mmHg): 171 DBP (mmHg): 110 Stage: RECOVERY Duration (min): 3 min : 0 sec HR (bpm): 72 SBP (mmHg): 166 DBP (mmHg): 110 Stage: RECOVERY Duration (min): 3 min : 3 sec HR (bpm): 73 SBP (mmHg): 166 DBP (mmHg): 110 Rest HR: 64 bpm Peak HR: 77 bpm Rest Sys BP: 165 mmHg Peak Sys BP: 171 mmHg Max Pred HR: 148 bpm % Max Pred HR: 52 % Target HR: 126 bpm Max RPP: 13,167 bpm*mmHg Termination Reason: Completed protocol Cardiac Symptoms: Shortness of breath Total Time: 1 min : 0 sec Rest Sawyer BP: 111 mmHg Peak Sawyer BP: 110 mmHg Total Dose: 0.4 mg Resting ECG Sinus rhythm, PVC's. Stress ECG No ST changes. Arrhythmias None. Report Signatures
== END 2025-04-06 10:55 | disposition home or self-care (01) ==
PROVIDERS: PCP Internal Medicine; Visit Provider Internal Medicine Cardiovascular Disease
DX: I51.9 Heart disease, unspecified (principal); I50.20 Unspecified systolic (congestive) heart failure
CPT/HCPCS: 78452; 93017; A9502; J2785

== ENCOUNTER 2025-04-23 12:56 | Emergency (ER) | payer MEDICARE, SELFPAY ==
--- NOTE | ~2025-04-23 | XR_ITS ---
XR chest 2V Ordering provider: Rosa Swain APRN History: 70 years Male with . Shortness of breath . Comparison: None. FINDINGS: MEDIASTINUM: The cardiac silhouette is not enlarged. Postoperative changes. LUNGS: No infiltrates, effusions or pneumothorax. OTHER: No free air under the diaphragm. Degenerative changes of the spine. IMPRESSION: No acute cardiopulmonary pathology. Reviewed, dictated and finalized at location A.
[2025-04-23 13:03] VITALS: BP 211/144; PULSE 74; RESP 18; TEMP 36.7; O2SAT 97
--- OUTSIDE RECORDS SUMMARY | 2025-04-23 13:08 | XMS_ITS | Data Portability ---
Author Organization [place] [facility] Address [address] [place] [address] Care Team Providers Care Call Center Representative Name Role Phone GRAYSON WARREN Primary Care Provider [phone] Assessment Encounter Date Assessment Date Assessment LastModified by Organization Details LastModified Time 09/30/2023 09/30/2023 68-year-old male presents today with complaints of chronic neck pain. Pain is primarily axial but occasional radicular symptoms following no specific nerve root distribution. 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 Records requested. He was [...] sent for analysis. Patient recently relocated from [place] where recreational marijuana use was legal. Advised the patient that he will need to obtain a [facility] medical marijuana card prior to managing his [...] recorded. Lab drug screen, urine 2022 023 [email or web address] Not available 10:26:55 drug confirmatio n, urine 2022 023 [email or web address] Not available 10:27:15 Referral None recorded. Procedures None recorded. Surgeries None recorded. Imaging XR, cervical spine, 4 or 5 view 2022 023 [email or web address] [id number] In-House Results, For Internal Use Only, Do Not Delete/merge, [id number] 09:41:17 Medication Orders hydrocodone 5 mg-acetamin ophen 325 mg tablet 2022 023 [id number], [address] , [place], [place], [id number], 09:38:25 Patient TargetsNo targets recorded. Patient Instructions Encounter Date Encounter Id Patient Instructions Last Modified By Organization Details Last Modified Time 09/30/2023 [id number] A mid-level prov ider in my office [...] a higher level of overall function and mandaen of their activities of daily living. It [...] breathing, or even possibly from bowel obstruction). [employer] Prescription Drug Monitoring Database has been queried [...] disadvantages, and provided the patient with the [facility] pamphlet. Not available 09/30/2023 09:35:19 Reason for Referral None Reported. Results Created Date Observation Date Name Description Value Unit Range Abnormal Flag Note LastModifiedBy Organization Detail LastModifiedTime 09/30/20 XR, cervi jefe spine , 4 or 5 view No observ ation record ed. In-House Results For Internal Use Only, Do Not Delete/merge, [id number] 09/30/2023 09:34:33 09/30/20 23 05/30/2022 MRI, cervi [...] Address Organization Details Recorded Time Neck pain 17948472 Active 2022 Mauro Gilliland MD [address] [place], [address], [facility] 3 09:34:42 History of cervical spine fusion 4520569823560 Active 2022 Mauro Gilliland MD [facility] [address] [place], [address], [facility] 3 09:34:44 Cervical spondylosis 958044623 Active 2022 Mauro Gilliland MD [address] [place], [address], [facility] 3 09:34:45 Cervical kyphosis 191030367 Active 2022 Mauro Gilliland MD [address] [place], [address], [facility] 3 09:34:45 Cervical radiculitis 13806512 Active 2022 Mauro Gilliland MD [address] [place], [address], [facility] 3 09:34:46 Degeneratio n of cervical interverteb ral disc 12320614 Active 2022 Mauro Gilliland MD [address] [place], [address], [facility] 3 09:34:47 Long-term current use of opiate analgesic drug 9995109718359 08 Active 2022 Mauro Gilliland MD [address] [place], [address], [facility] 3 09:34:48 Problem Notes None recorded. Procedures Surgical History Date Name Laterality Status Provider Name and Address Organization Details Recorded Time Knee Surgery completed [facility] 09/30/2023 09:10:11 Hip Surgery completed [facility] 09/30/2023 09:10:11 Shoulder Surgery completed [facility] 09/30/2023 09:10:11 Joint Replacement completed [facility] 09/30/2023 09:10:11 Heart Surgery completed [facility] 09/30/2023 09:10:11 Imaging Results None recorded. Procedure [...] Address Organization Details Last Updated DateTime 09/30/2023 716769.35 g 138 mm[Hg] 75 mm[Hg] [facility] 09/30/2023 09:19:07 Social History Question Answer Notes [...] SNOMED-CT Code Diagnosis ICD10 Code Diagnosis Note [id number] Mauro Gilliland MD [place] [address] [place] [address] 09/30/2023 08:24:45 09/30/2023 09:41:17 Neck pain 79741037 M54.2 Long-term current use of opiate analgesic drug 8867024226 10153 Z79.891 Cervical spondylosis 387 049367 M47.812 Cervical kyphosis 116761 001 M40.202 Degenerati on of cervical intervertebral disc 68627253 M50.30 History of cervical spine fusion 7977662148 101 Z98.1 Cervical radiculopathy 49163135 M54.12 Health Concerns Section Related Observation LastModified by Organization Detai ls LastModified Time None Recorded Concern Status LastModified by Organization Details LastModified Time None Recorded Advance Directives Directive Y: Payers Insurance Date Sequence Insurance Name Policy Number Policy Price Covered Member ID Price Member ID Guarantor Name 10/06/2023 1 [facility] (MEDICARE REPLACEMENT/A DVANTAGE - HMO) [id number] Sam Colby [id number] Sam Colby Notes Date Note Type Note [...] with no improvement. 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 Patient reports taking Hydrocodone and phentermine for relief. Medications were reviewed and updated in chart. No other changes reported. Mauro Gilliland MD [address] [place], [address], [facility] 09/30/2023 13:01:58
--- OUTSIDE RECORDS SUMMARY | 2025-04-23 13:08 | XMS_ITS | Patient Health Record ---
Author Organization [facility] Address [address] [facility] [address] [place] [address] Care Team Providers Care Construction Inspector Name Role Phone CHARLI BONILLA Unavailable [phone] Reason For Referral No Information Problems Problem Type SNOMED Code ICD Code Onset Dates Problem Status W/U Status Risk Notes Problem Atherosclerotic heart disease of [place] coronary artery without angina pectoris (583832139307846) CAD in [place] artery (I25.10) Active confirmed Plan Of Treatment No Information Insurance Providers Payer Name Payer Address Payer Phone Subscriber Number Group Number Insured Name Patient Relationship to Insured Coverage Start Date Coverage End Date [employer] [facility] [address] [place] [address] [id number] Sam Colby Self - patient is the insured MEDICARE [place] [address] [address] [place], [place] [id number] Sam Colby Self - patient is the insured
--- OUTSIDE RECORDS SUMMARY | 2025-04-23 13:08 | XMS_ITS | Clinical Summary ---
Author Organization [facility] Address [address] [place] [address] Care Team Providers Care Peanut Separator Name Role Phone Hitesh Aguilar Primary Care Provider [phone] Source Comments [facility],non-owned Affiliates and Associated Physician Practices is amultiple site organization consisting of ambulatory clinics and hospital sitesin [place], [place], [place] and [place]. This disclosure is being madepursuant to the Care Everywhere program and may not contain all information available regarding this patient. Last updated 18.[facility] Allergies No known active allergies Medications * [...] morning and evening meal Active HYDROcodone-acet aminophen ([place]) 5-325 MG tablet Take 1 (one) tablet [...] Description 04/03/2025 9:30 AM CDT Office Visit [facility] [address] [place] [id number] Yunier Novoa MD History of right hip replacement (Primary Dx) 04/03/2025 8:51 AM CDT - 04/03/2025 11:59 PM CDT Hospital Encounter [facility] [address], [address] [place] [address] Yunier Novoa MD Discharge Disposition: Home or Self Care 04/03/2025 Travel 04/02/2025 Orders Only [facility] [address] [place] [address] Yunier Novoa MD History of [...] on file Legal Sex Male 12:58 PM WELDING MACHINE OPERATOR/TENDER Gender Identity Not on file Sexual Orientation Not on file Last Filed Vital Signs Vital Sign Reading Time Taken Comments Blood Pressure 128/58 10/17/2022 8:20 AM WELDING MACHINE OPERATOR/TENDER Pulse 88 10/17/2022 8:34 AM WELDING MACHINE OPERATOR/TENDER Temperature 37.6 C (99.6 F) 10/17/2022 8:20 AM WELDING MACHINE OPERATOR/TENDER Respiratory Rate 16 10/17/2022 8:20 AM WELDING MACHINE OPERATOR/TENDER Oxygen Saturation 97% 10/17/2022 8:20 AM WELDING MACHINE OPERATOR/TENDER Inhaled Oxygen Concentration - - Weight 107 kg (236 lb) 10/16/2022 7:57 AM WELDING MACHINE OPERATOR/TENDER Height 185.4 cm (6' 1) 10/16/2022 7:57 AM WELDING MACHINE OPERATOR/TENDER Body Mass Index 31.14 10/16/2022 7:57 AM WELDING MACHINE OPERATOR/TENDER Plan of Treatment Health Maintenance Due Date [...] this topic Medical Devices Implanted Type Area Bass Fisher Device Identifier Shelf Expiration Date Model / Serial / Lot Shell Actb 58mm 3 Hl Poly R3 Std Implanted:Qty: 1 on 10/16/2022 by Yunier Novoa MD at Formerly named [facility] Right: Hip Gale & Nephew Inc 03/09/2032 [id number] / / [id number] Screw 6.5mm 40mm Sphrcl Head Hip Actb Implanted:Qty: 1 on 10/16/2022 by Yunier Novoa MD at Formerly named [facility] Right: Hip [employer]ale [employer]hew Inc 04/16/2032 [id number] / / [id number] Liner Actb R3 0d 58mm 40mm Xlpe Implanted:Qty: 1 on 10/16/2022 by Yunier Novoa MD at Formerly named [facility] Right: Hip [employer]ale [employer]hew Inc 03/26/2031 [id number] / / [id number] Stem Fem 143mm Hip 126d 4 10/07 Lat Ofst Implanted:Qty: 1 on 10/16/2022 by Yuiner oNvoa MD at Formerly named [facility] Right: Hip [employer]ale [employer]hew Inc 05/18/2028 [id number] / / [id number] Head Fem +4mm 10/07 Med Tpr 40mm Hip Blx Implanted:Qty: 1 on 10/16/2022 by Yunier Novoa MD at Formerly named [facility] Right: Hip [employer] Inc 03/25/2032 [id number] / / [id number] Procedures Procedure Name Priority Date/Time Associated Diagnosis Comments XR PELVIS W RIGHT HIP 2VW Routine 04/03/2025 8:54 AM CDT History of total right hip replacement ENDOSCOPY, COLON, SCREENING Routine 09/04/2014 8:12 AM WELDING MACHINE OPERATOR/TENDER from Last 3 Months or Most Recently [...] * ENDOSCOPY, COLON, SCREENING (09/04/2014 8:12 AM WELDING MACHINE OPERATOR/TENDER) Report Endoscopy POC _ Patient Name: Esteban Jacob Procedure Date: 09/04/2014 8:12 AM Date of : 1955 Admit Type: Outpatient Age: 59 Gender: Male Attending MD: Ryan Chilel MD _ Procedure: Colonoscopy Indications: Screening for colorectal malignant neoplasm Providers: Ryan Chilel MD (Doctor), Gwendolyn Rios, RN, Balaji Brink, Delivery Driver Referring MD: Kory Rosado (Referring MD) Medicines: [...] Endo clip. Procedure Code(s): --- Professional --- 60034, Colonoscopy, flexible, proximal to splenic flexure; with removal of tumor(s), polyp(s), or other lesion(s) by snare technique --- Technical --- 05016, Colonoscopy, flexible, proximal to splenic flexure; with [...] (without mention of hemorrhage) CPT copyright 2013 [employer]. All rights reserved. The codes documented in this report are preliminary and upon harp regulator review may be revised to meet current compliance requirements. Ryan Chilel MD 09/04/2014 9:14 AM Number of Addenda: 0 Note Initiated On: 09/04/2014 8:[address] [facility] ENDOSCOPY 09/04/2014 8:12 AM WELDING MACHINE OPERATOR/TENDER us Ryan Chilel MD GI PROCEDURE ORDERABLES E dited Result - Final [facility] ENDOSCOPY from Last 3 Months or Most Recently Relevant to Health Maintenance Insurance [facility] MANAGED MEDICARE ADV Member Subscriber Plan / Payer (Ef fective 2023-Present) Name:Cecil Esteban Willson Relation to Subscriber:Self Name:Cecil Esteban Willson Payer ID:[id number] (NAIC) Type:Medicare-Managed Care Address: [place] [phone] MANAGED MEDICARE ADV Member Subscriber Plan / Payer ( fective 2023-Present) Name:CecilEsteban Relation to Subscriber:Self Name:CecilEsteban Payer ID:[id number] (NAIC) Type:Medicare-Managed Care Address: [place] [phone] ANTHEM Member Subscriber Plan / Payer ( fective 2013-Present) Name:Esteban Jacob Relation to Subscriber:Spouse Name:ASTER JACOB Subscriber ID:Not on file Payer ID:[id number] (NAIC) Group ID:[id number] Type:O Address: [address] MANAGED MEDICARE ADV Member Subscriber Plan / Payer ( fective 2021-Present) Name:Esteban Jacob Relation to Subscriber:Self Name:ESTEBAN JACOB Payer ID:[id number] (NAIC) Type:Medicare-Managed Care Address: [place] [phone] [facility] MANAGED MEDICARE ADV Member Subscriber Plan / Payer ( fective 2021-Present) Name:Esteban Jacob D Relation to Subscriber:Self Name:ESTEBAN JACOB Payer ID:[id number] (NAIC) Type:Medicare-Managed Care Address: [place] [phone] [facility] MANAGED MEDICARE ADV Member Subscriber Plan / Payer ( fective 2021-) Name:Jacki Jacobic D Relation to Subscriber:Self Name:ESTEBAN JACOB Demetris Payer ID:[id number] (NAIC) Type:Medicare-Managed Care Address: [place] [phone] [facility] MANAGED MEDICARE ADV Member Subscriber Plan / Payer ( fective 2021-) Name:Cecil Esteban D Relation to Subscriber:Self Name:ESTEBAN JACOB Demetris Payer ID:[id number] (NAIC) Type:Medicare-Managed Care Address: [place] [phone] [facility] MANAGED MEDICARE ADV Member Subscriber Plan / Payer ( fective 2021-) Name:Cecil Esteban D Relation to Subscriber:Self Name:CECILESTEBAN Demetris Payer ID:[id number] (NAIC) Type:Medicare-Managed Care Address: [place] [phone] [facility] MANAGED MEDICARE ADV [facility] MANAGED MEDICARE ADV [facility] MANAGED MEDICARE ADV Member Subscriber Plan / Payer (Ef fective 2021-Present) Name:Esteban Jacob D Relation to Subscriber:Self Name:ESTEBAN JACOB D Payer ID:[id number] (NAIC) Type:Medicare-Managed Care Address: [address] MANAGED MEDICARE ADV Member Subscriber Plan / Payer (Ef fective 2021-Present) Name:Esteban Jacob D Relation to Subscriber:Self Name:ESTEBAN JACOB D Payer ID:[id number] (NAIC) Type:Medicare-Managed Care Address: [place] [phone] [facility] MANAGED MEDICARE ADV Member Subscriber Plan / Payer (Ef fective 2021-Present) Name:Esteban Jacob D Relation to Subscriber:Self Name:ESTEBAN JACOB D Payer ID:[id number] (NAIC) Type:Medicare-Managed Care Address: [place] [phone] [facility] MANAGED MEDICARE ADV [facility] MANAGED MEDICARE ADV [facility] MANAGED MEDICARE ADV Member Subscriber Plan / Payer (Ef fective 2021-Present) Name:CecilEsteban D Relation to Subscriber:Self Name:CECILJACKIESTEBAN D Payer ID:[id number] (NAIC) Type:Medicare-Managed Care Address: [place] [phone] [facility] MANAGED MEDICARE ADV [facility] MANAGED MEDICARE ADV [facility] MANAGED MEDICARE ADV [facility] MANAGED MEDICARE ADV [facility] MANAGED MEDICARE ADV Member Subscriber Plan / Payer ( fective 2021-) Name:Esteban Jacob D Relation to Subscriber:Self Name:ESTEBAN JACOB Payer ID:[id number] (NAIC) Type:Medicare-Managed Care Address: [place] [phone] [facility] MANAGED MEDICARE ADV Member Subscriber Plan / Payer ( fective 2021-) Name:Esteban Jacob D Relation to Subscriber:Self Name:ESTEBAN JACOB Payer ID:[id number] (NAIC) Type:Medicare-Managed Care Address: [place] [phone] [facility] MANAGED MEDICARE ADV Member Subscriber Plan / Payer ( fective 2021-) Name:Esteban Jacob D Relation to Subscriber:Self Name:ESTEBAN JACOB Payer ID:[id number] (NAIC) Type:Medicare-Managed Care Address: [place] [phone] [facility] MANAGED MEDICARE ADV Member Subscriber Plan / Payer ( fective 2021-) Name:Esteban Jacob D Relation to Subscriber:Self Name:ESTEBAN JACOB Payer ID:[id number] (NAIC) Type:Medicare-Managed Care Address: [place] [phone] [facility] MANAGED MEDICARE ADV Member Subscriber Plan / Payer (Ef fective 2021-Present) Name:Esteban Jacob D Relation to Subscriber:Self Name:ESTEBAN JACOB D Payer ID:[id number] (NAIC) Type:Medicare-Managed Care Address: [place] [phone] [facility] MANAGED MEDICARE ADV Member Subscriber Plan / Payer (Ef fective 2021-Present) Name:CecilEsteban D Relation to Subscriber:Self Name:CECILESTEBAN D Payer ID:[id number] (NAIC) Type:Medicare-Managed Care Address: [address] MANAGED MEDICARE ADV Member Subscriber Plan / Payer (Ef fective 2021-Present) Name:Esteban Jacob D Relation to Subscriber:Self Name:CECILJACKIESTEBAN D Payer ID:[id number] (NAIC) Type:Medicare-Managed Care Address: [address] MANAGED MEDICARE ADV Member Subscriber Plan / Payer (Ef fective 2021-Present) Name:CecilEsteban D Relation to Subscriber:Self Name:CECILESTEBAN D Payer ID:[id number] (NAIC) Type:Medicare-Managed Care Address: [place] [phone] [facility] MANAGED MEDICARE ADV [facility] MANAGED MEDICARE ADV [facility] MANAGED MEDICARE ADV [facility] MANAGED MEDICARE ADV [facility] MANAGED MEDICARE ADV [facility] MANAGED MEDICARE ADV [facility] MANAGED MEDICARE ADV [facility] MANAGED MEDICARE ADV Member Subscriber Plan / Payer (Ef fective 2021-Present) Name:Esteban Jacob D Relation to Subscriber:Self Name:ESTEBAN JACOB D Payer ID:[id number] (NAIC) Type:Medicare-Managed Care Address: [place] [phone] [facility] MANAGED MEDICARE ADV Member Subscriber Plan / Payer (Ef fective 2021-Present) Name:Esteban Jacob D Relation to Subscriber:Self Name:ESTEBAN JACOB Payer ID:[id number] (NAIC) Type:Medicare-Managed Care Address: [place] [phone] [facility] MANAGED MEDICARE ADV Member Subscriber Plan / Payer (Ef fective 2021-Present) Name:Esteban Jacob D Relation to Subscriber:Self Name:ESTEBAN JACOB D Payer ID:[id number] (NAIC) Type:Medicare-Managed Care Address: [place] [phone] [facility] MANAGED MEDICARE ADV Advance Directives * Full Code (Latest Code Status on File) Date Activated Date Inactivated Comments 10/16/2022 2:31 PM 10/17/2022 3:19 PM Care Teams Peanut Separator Relationship Specialty Start Date End Date Hitesh Aguilar DO [address] [place], [place] [address] PCP - General Internal Medicine 04/03/25
--- OUTSIDE RECORDS SUMMARY | 2025-04-23 13:08 | XMS_ITS | Referral Summary ---
Author Organization [facility] Address [address] [place] [address] Care Team Providers Care Shipping And Receiving Operator Name Role Phone Danny Bai Primary Care Provider Edgar Still MD Unavailable [phone] Darian Villalpando NP Unavailable Allergies No known [...] wound care. 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 Assessment & Plan (12/31/2023 11:15 AM BOOMSWING OPERATOR): Lower extremities with 1+ pitting edema bilaterally. [...] lesion 09/15/2021 Coronary artery disease invo lving [place] coronary artery of [place] heart without angina pectoris 09/03/2021 Overview (09/03/2021): Added automatically from request for surgery [id number] Painful orthopaedic hardware 01/07/2021 Overview (01/07/2021): Added automatically from request for surgery [id number] Class 1 obesity with body ma ss index (BMI) of 32.0 to 32.9 in adult 10/11/2019 Chronic pain 10/11/2019 Risk factors for obstructive sleep apnea 019 Left rotator cuff tear arthropathy 09/25/2019 Overview (09/25/2019): Added automatically from request for surgery [id number] History of left hip replacement 09/19/2019 Aftercare [...] on file Legal Sex Male 2:47 PM BOOMSWING OPERATOR Gender Identity Not on file Sexual Orientation [...] on file Medical Devices Implanted Type Area Carpenter/Labor Device Identifier Shelf Expiration Date Model / Serial / Lot Tornier Inc [id number] Tornier Aequalis Perform 15mm Press Fit Long Post Shoulder - [id number] Implanted:Qty: 1 on 10/13/2019 by Damir Dale MD at [facility] Left: Shoulder Dine perfect Medical Gam[employer] Inc 07/20/2024 [id number] / / [id number] Tornier Inc [id number] Tornier Aequalis Perform 25mm Reverse Shoulder Standard Baseplate - [id number] Implanted:Qty: 1 on 10/13/2019 by Damir Dale MD at [facility] Left: Shoulder Dine perfect Medical [employer] Inc [id number] / / [id number] Tornier Inc [id number] Aequalis Perform Reversed 5mm 30mm Peripheral Glenoid Screw - [id number] Implanted:Qty: 1 on 10/13/2019 by Damir Dale MD at [facility] Left: Shoulder Dine perfect Medical Technology Inc [id number] / / Tornier Inc [id number] Aequalis Perform Reversed 5mm 38mm Peripheral Glenoid Screw - [id number] Implanted:Qty: 1 on 10/13/2019 by Damir Dale MD at [facility] Left: Shoulder Dine perfect Medical Technology Inc MLD315 / / Tornier Inc [id number] Tornier Aequalis Perform Od39 Mm Lateralize Reverse Shoulder +3 Mm Sphere Glenoid - [id number] Implanted:Qty: 1 on 10/13/2019 by Damir Dale MD at [facility] Left: Shoulder Dine perfect Medical Technology Inc 07/10/2024 [id number] / / [id number] Tornier Inc [id number] Insert 12.5d 6+ Mm 39mm Humeral Flex Shoulder Sterile - [id number] Implanted:Qty: 1 on 10/13/2019 by Damir Dale MD at [facility] Left: Shoulder [employer] Inc 09/06/2024 [id number] / / [id number] Tornier Inc [id number] Aequalis Ascend Flex Reverse Shoulder +0mm 3.5mm High Offset Tray - [id number] Implanted:Qty: 1 on 10/13/2019 by Damir Dale MD at [facility] Left: Shoulder [employer] Inc 09/18/2024 [id number] / / [id number] Tornier Inc [id number] Stem Humeral 70mm Shoulder Pressfit Aequalis Ascend Flex Ptc 132.5d 2b Standard - [id number] - [id number] Implanted:Qty: 1 on 10/13/2019 by Damir Dale MD at [facility] Left: Shoulder [employer] Inc 03/16/2024 [id number] / [id number] / Procedures Procedure Name Priority Date/Time Associated Diagnosis Comments COLONOSCOPY 01/14/2022 11:51 AM CDT from Last 3 Months or Most Recently Relevant to Health Maintenance Results * COLONOSCOPY (01/14/2022 11:51 AM CDT) Anatomical Region Laterality Modality Other Narrative Procedure Note Edmund Gordon MD - 01/14/2022 11:51 AM CDT ENDOSCOPY LAB Patient Name: Sam Jacob Procedure Date: 01/14/2022 11:51 AM Admit Type: Outpatient Room: [facility] Date of : 1955 Instrument [...] Most Recently Relevant to Health Maintenance Insurance [facility] MEDICARE ADVANTAGE [facility] MEDICARE ADVANTAGE [facility] [place] [id number] [facility] MEDICARE Advance Directives For more information, please contact: [phone] * Full Code (Latest Code Status on File) Date Activated Date Inactivated Comments 09/15/2021 2:42 PM 09/20/2021 6:16 PM * Full Code Date Activated Date Inactivated Comments 10/13/2019 12:02 PM 10/14/2019 5:29 PM Care Teams Shipping And Receiving Operator Relationship Specialty Start Date End Date Danny Bai PA [address] [place] [address] PCP - General 12/27/20 Edgar Still MD [address] [place] [address] Referring Physician Cardiology 09/03/21 Darian Villalpando NP [address] [place] [address] Referring Physician Nurse Practitioner 01/07/24
--- OUTSIDE RECORDS SUMMARY | 2025-04-23 13:08 | XMS_ITS | Clinical Summary ---
Author Organization [facility] Address [address] [place] [address] Care Team Providers Care Onsite Case Manager Name Role Phone Danny Bai Primary Care Provider Edgar Still MD Unavailable [phone] Darian Villalpando NP Unavailable Allergies No known [...] wound care. 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 Assessment & Plan (12/31/2023 11:15 AM COMMANDER INTERNAL AFFAIRS): Lower extremities with 1+ pitting edema bilaterally. [...] lesion 09/15/2021 Coronary artery disease invo lving [place] coronary artery of [place] heart without angina pectoris 09/03/2021 Overview (09/03/2021): Added automatically from request for surgery [id number] Painful orthopaedic hardware 01/07/2021 Overview (01/07/2021): Added automatically from request for surgery [id number] Class 1 obesity with body ma ss index (BMI) of 32.0 to 32.9 in adult 10/11/2019 Chronic pain 10/11/2019 Risk factors for obstructive sleep apnea 019 Left rotator cuff tear arthropathy 09/25/2019 Overview (09/25/2019): Added automatically from request for surgery [id number] History of left hip replacement 09/19/2019 Aftercare [...] of incident. Myocardial infarction (HCC) s[place] nt [place] found on stress test Asthma Hyperlipidemia Loss [...] on file Legal Sex Male 2:47 PM COMMANDER INTERNAL AFFAIRS Gender Identity Not on file Sexual Orientation [...] Discontinued 01/14/2022 Medical Devices Implanted Type Area Restaurant Line Server Device Identifier Shelf Expiration Date Model / Serial / Lot Tornier Inc [id number] Tornier Aequalis Perform 15mm Press Fit Long Post Shoulder - [id number] Implanted:Qty: 1 on 10/13/2019 by Damir Dale MD at [facility] Left: Shoulder Dep-Xplora Medical [employer] Inc 07/20/2024 [id number] / / [id number] Tornier Inc [id number] Tornier Aequalis Perform 25mm Reverse Shoulder Standard Baseplate - [id number] Implanted:Qty: 1 on 10/13/2019 by Damir Dale MD at [facility] Left: Shoulder Dep-X[employer]ora [employer] Inc [id number] / / [id number] Tornier Inc [id number] Aequalis Perform Reversed 5mm 30mm Peripheral Glenoid Screw - [id number] Implanted:Qty: 1 on 10/13/2019 by Damir Dale MD at [facility] Left: Shoulder Dep-Xplora Medical [employer] Inc OFO767 / / Tornier Inc [id number] Aequalis Perform Reversed 5mm 38mm Peripheral Glenoid Screw - [id number] Implanted:Qty: 1 on 10/13/2019 by Damir Dale MD at [facility] Left: Shoulder Dep-Xplora Medical [employer] Inc MWO479 / / Tornier Inc [id number] Tornier Aequalis Perform Od39 Mm Lateralize Reverse Shoulder +3 Mm Sphere Glenoid - [id number] Implanted:Qty: 1 on 10/13/2019 by Damir Dale MD at [facility] Left: Shoulder [employer] Inc 07/10/2024 [id number] / / [id number] Tornier Inc [id number] Insert 12.5d 6+ Mm 39mm Humeral Flex Shoulder Sterile - [id number] Implanted:Qty: 1 on 10/13/2019 by Damir Dale MD at [facility] Left: Shoulder [employer] Inc 09/06/2024 [id number] / / [id number] Tornier Inc [id number] Aequalis Ascend Flex Reverse Shoulder +0mm 3.5mm High Offset Tray - [id number] Implanted:Qty: 1 on 10/13/2019 by Damir Dale MD at [facility] Left: Shoulder [employer] Inc 09/18/2024 [id number] / / [id number] Tornier Inc [id number] Stem Humeral 70mm Shoulder Pressfit Aequalis Ascend Flex Ptc 132.5d 2b Standard - [id number] - [id number] Implanted:Qty: 1 on 10/13/2019 by Damir Dale MD at [facility] Left: Shoulder [employer] Inc 03/16/2024 [id number] / [id number] / Procedures Procedure Name Priority Date/Time Associated Diagnosis Comments COLONOSCOPY 01/14/2022 11:51 AM CDT from Last 3 Months or Most Recently Relevant to Health Maintenance Results * COLONOSCOPY (01/14/2022 11:51 AM CDT) Anatomical Region Laterality Modality Other Narrative Procedure Note Edmund Gordon MD - 01/14/2022 11:51 AM CDT ENDOSCOPY LAB Patient Name: Sam Jacob Procedure Date: 01/14/2022 11:51 AM Admit Type: Outpatient Room: [facility] 3 Date of : 1955 Instrument [...] to Subscriber:Self Name:Sam Jacob Payer ID:[id number] (NAIC) Type:[facility] MEDIC[facility] Address: [place] [phone] UHC MEDICARE ADVANTAGE Member Subscriber Plan / Payer (Ef fective 2015-Present) Name:Sam Jacob Relation to Subscriber:Spouse Name:ASTER JACOB Date of :1959 (Home) Address: [address] [place] [address] Payer ID:[id number] (NAIC) Group ID:[id number] Type:BC ALLIANCE Address: [address] [place] [id number] MEDICARE Advance Directives For more information, please contact: [phone] * Full Code (Latest Code Status on File) Date Activated Date Inactivated Comments 09/15/2021 2:42 PM 09/20/2021 6:16 PM * Full Code Date Activated Date Inactivated Comments 10/13/2019 12:02 PM 10/14/2019 5:29 PM Care Teams Onsite Case Manager Relationship Specialty Start Date End Date Danny Bai PA [address] [place] [address] PCP - General 12/27/20 Edgar Still MD [address] [place] [address] Referring Physician Cardiology 09/03/21 Darian Villalpando NP [address] [place] [address] Referring Physician Nurse Practitioner 01/07/24
--- NOTE | 2025-04-23 13:10 | ECG_ITS ---
Test Date: 2025-04-23 13:13:24 Measurements Intervals [place] Rate: 68 P: 18 TX: 179 QRS: -45 QRSD: 131 T: 93 QT: 425 QTc: 453 Interpretive Statements SINUS RHYTHM LEFT AXIS DEVIATION POSSIBLE LEFT ATRIAL ENLARGEMENT INTRAVENTRICULAR CONDUCTION DELAY LEFT VENTRICULAR HYPERTROPHY AND ST-T CHANGE CONSIDER ANTERIOR INFARCT, AGE INDETERMINATE BASELINE ARTIFACT- I, II, III, AVR, AVL, AVF ABNORMAL ECG Compared to ECG 03/24/2024 13:25:29 PVC NO LONGER PRESENT Electronically Signed On 04-23-2025 13:27:11 CDT by Kt Simmons D.O.
--- NOTE | 2025-04-23 13:13 | ED_ITS ---
HPI - SOB/Dyspnea General Chief Complaint: Shortness of Breath/Dyspnea <Rosa Swain APRN - Last Filed: 04/23/25 13:14> Stated Complaint: Shortness of breath, coughing <Rosa Swain APRN - Last Filed: 04/23/25 13:14> Time Seen by Provider: 04/23/25 13:05 <Rosa Swain APRN - Last Filed: 04/23/25 13:14> Focused HPI: Patient is a 70-year-old male who presents to the ER with increased coughing, shortness of breath, and syncopal episodes. He reports he has been coughing so hard that has caused him to pass out over the past 3 days. Patient reports he went to his letter of credit clerk this morning was who advised he come to the ER for evaluation. He reports he has also had decreased p.o. intake over the past 3 days. Patient reports he is using his albuterol inhaler approximately 6-7 times per day and he has used it so much that he is almost out of his medication. He denies any recent fevers, new onset lower extremity swelling, shoulder pain, or areas of pain. GENERAL: Well-appearing, well-nourished, and in no acute distress. HEAD: Normocephalic, atraumatic. CHEST: Diminished breath sounds upon auscultation. ?No respiratory distress. HEART: Regular rate and rhythm.? NEURO: ?Alert and oriented x3. ABD: Distension, + BS Patient screened in triage and initial orders placed.? ?Additional care and disposition to be based upon?diagnostic testing and treatment. <Rosa Swain APRN - Last Filed: 04/23/25 13:14> History of Present Illness HPI Narrative: as per mse <Julian Lovelace III, DO - Last Filed: 04/23/25 18:45> Related Data Home Medications: Home Medications ?Medication ?Instructions ?Recorded ?Confirmed ?Last Taken ?Type aspirin 325 mg tablet 325 mg PO BID 09/11/20 03/16/25 Unknown History lidocaine 5 % topical ointment 1 applic topical DAILY 09/11/20 03/16/25 Unknown History diclofenac sodium 1 % topical gel 2 g topical QID 10/21/21 03/16/25 Unknown History multivitamin 1 tablet PO DAILY 10/21/21 03/16/25 Unknown History omega-3 fatty acids 1,000 mg PO DAILY 10/21/21 03/16/25 Unknown History furosemide 40 mg tablet 40 mg PO BID 06/17/23 03/16/25 Unknown History <Rosa Swain, SWITCH CREW SUPERVISOR - Last Filed: 04/23/25 13:14> Allergies/Adverse Reactions: Allergies Allergy/AdvReac Type Severity Reaction Status Date / Time No Known Allergies Allergy Verified 12/06/24 13:50 <Rosa Swain, SWITCH CREW SUPERVISOR - Last Filed: 04/23/25 13:14> Review of Systems 2 Review of Systems: All systems reviewed & are unremarkable except as noted in HPI and below <Julian Lovelace III, DO - Last Filed: 04/23/25 18:45> [facility] Past Medical History Medical History: Medical History BMI 33.0-33.9,adult <Rosa Swain SWITCH CREW SUPERVISOR - Last Filed: 04/23/25 13:14> Surgical History Surgical History: Surgical History History of left shoulder replacement History of total left hip replacement History of total left knee replacement <Rosa Swain SWITCH CREW SUPERVISOR - Last Filed: 04/23/25 13:14> Family History Family History: Family History Father Cancer Mother Cancer Throat cancer Sibling Seizures <Rosa Swain, SWITCH CREW SUPERVISOR - Last Filed: 04/23/25 13:14> Social History Social History: Social History Smoking status: Never smoker Second hand tobacco smoke exposure: Yes (when growing up) Alcohol intake: current Alcohol use details: socially Substance use: never Substance use type: does not use Do You Feel Safe in your Home?: Yes Lack of Transportation: No Lack of Food: Never True Current Housing: I Have Housing Concerned About Future Housing: No Difficulty Paying Gas/Electric Bills: No Difficulty Paying for Meds: No Currently Unemployed: No Education: Bachelor's Degree Difficulty w/ Childcare or Family Care: No Living arrangements: alone Occupation/Education: retired 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 Gender identity (if verbalized by the patient): Male <Rosa PalaciosAnamaria Wright, SWITCH CREW SUPERVISOR - Last Filed: 04/23/25 13:14> Exam 2 Const: General: healthy appearing and no acute distress <Julian Paramjit Lovelace III, DO - Last Filed: 04/23/25 18:45> Nutritional Appearance: well nourished <Julian Paramjit Lovelace III, DO - Last Filed: 04/23/25 18:45> Orientation/consciousness: patient oriented x3 <Julian Paramjit Lovelace III, DO - Last Filed: 04/23/25 18:45> Limitations: no limitations <Julian Paramjit Lovelace III, DO - Last Filed: 04/23/25 18:45> Chest: Chest palpation & inspection: normal inspection of the chest < Julian Paramjit Lovelace III, DO - Last Filed: 04/23/25 18:45> Resp: Effort & Inspection: normal respiratory effort <Julian Paramjit Lovelace III, DO - Last Filed: 04/23/25 18:45> Auscultation: clear to auscultation bilaterally <Julian Paramjit Lovelace III, DO - Last Filed: 04/23/25 18:45> Cardio: Rate: regular rate <Julian Paramjit Lovelace III, DO - Last Filed: 04/23/25 18:45> Rhythm: regular rhythm <Julian Paramjit Lovelace III, DO - Last Filed: 04/23/25 18:45> GI: GI Palp: Yes Soft to palpation <Julian Paramjit Lovelace III, DO - Last Filed: 04/23/25 18:45> Auscultation: normal bowel sounds <Julian Paramjit Lovelace III, DO - Last Filed: 04/23/25 18:45> Skin: General skin exam: normal color <Julian Paramjit Lovelace III, DO - Last Filed: 04/23/25 18:45> Rashes: no rashes <Julian Paramjit Lovelace III, DO - Last Filed: 04/23/25 18:45> Wounds: no wounds <Julian Paramjit Lovelace III, DO - Last Filed: 04/23/25 18:45> Neuro: General: patient oriented x3, moves all extremities, no meningeal signs, no focal motor deficits and CN's II-XI intact bilaterally <Julian Paramjit Lovelace III, DO - Last Filed: 04/23/25 18:45> Speech: normal speech <Julian Paramjit Lovelace III, DO - Last Filed: 04/23/25 18:45> Extrem: General: normal to inspection and no clubbing, cyanosis or edema < Julian Paramijt Lovelace III, DO - Last Filed: 04/23/25 18:45> Psych: Mental Status: mental status grossly normal <Julian Paramjit Lovelace III, DO - Last Filed: 04/23/25 18:45> Affect: normal affect <Julian Paramjit Lovelace III, DO - Last Filed: 04/23/25 18:45> Attitude: cooperative <Julian Paramjit Lovelace III, DO - Last Filed: 04/23/25 18:45> Course Vital Signs Vital signs: Vital Signs Temperature 98.1 F 04/23/25 13:03 Pulse Rate 74 04/23/25 13:03 Respiratory Rate 18 04/23/25 13:03 Blood Pressure 211/144 H 04/23/25 13:03 Pulse Oximetry 97 04/23/25 13:03 Oxygen Delivery Room Air 04/23/25 13:03 Temperature 98.1 F 04/23/25 13:03 Pulse Rate 68 04/23/25 16:30 Respiratory Rate 20 04/23/25 16:30 Blood Pressure 168/98 H 04/23/25 16:30 Pulse Oximetry 98 04/23/25 16:30 Oxygen Delivery Room Air 04/23/25 14:12 <Rosa Swain, SWITCH CREW SUPERVISOR - Last Filed: 04/23/25 13:14> Vital Signs Temperature 98.1 F 04/23/25 13:03 Pulse Rate 74 04/23/25 13:03 Respiratory Rate 18 04/23/25 13:03 Blood Pressure 211/144 H 04/23/25 13:03 Pulse Oximetry 97 04/23/25 13:03 Oxygen Delivery Room Air 04/23/25 13:03 Temperature 98.1 F 04/23/25 13:03 Pulse Rate 68 04/23/25 16:30 Respiratory Rate 20 04/23/25 16:30 Blood Pressure 168/98 H 04/23/25 16:30 Pulse Oximetry 98 04/23/25 16:30 Oxygen Delivery Room Air 04/23/25 14:12 <Julian Paramjit Lovelace III, DO - Last Filed: 04/23/25 18:45> MDM - SOB/Dyspnea MDM Narrative Medical decision making narrative: Pt has chronic cough and cough related syncope. Pt has cough with white to yellow sputum. Pt has inhalers at home. Pt has not been on antibiotics or prednisone recently. labs and cxr and ekg unremarkable. will ry home on z pack and prednisone wean and cough meds with codeine <Julian Paramjit Lovelace III, DO - Last Filed: 04/23/25 18:45> Lab Data Result diagrams: 04/23/25 13:18 04/23/25 13:18 <Rosa Swain, SWITCH CREW SUPERVISOR - Last Filed: 04/23/25 13:14> Labs: Lab Results 04/23/25 Range/Units 13:18 WBC 6.9 (4.5-10.0) K/mm3 RBC 4.69 (4.6-6.20) M/mm3 Hgb 16.5 (14.0-18.0) g/dL Hct 47.5 (42.0-52.0) % MCV 101.3 H (80-100) fl MCH 35.2 H (26-34) pg MCHC 34.7 (32-36) g/dl RDW 13.2 (11.5-14.5) % Plt Count 195 (150-375) k/mm3 MPV 9.4 (7.4-10.4) fl Immature Gran % (Auto) 0.1 (0-0.5) % Neut % (Auto) 42.6 L (45.5-73.1) % Lymph % (Auto) 38.4 (18.3-44.2) % Johnson % (Auto) 8.2 (2.6-8.5) % Eos % (Auto) 9.8 H (0-4.4) % Baso % (Auto) 0.9 (0.2-1.2) % Lymph # (Auto) 2.63 (0.9-3.2) K/mm3 Johnson # (Auto) 0.6 (0.1-0.6) K/mm3 Eos # (Auto) 0.7 H (0-0.3) K/mm3 Baso # (Auto) 0.1 (0.0-0.1) K/mm3 Abs Immat Gran (auto) 0.01 (0.00-0.031) K/mm3 Absolute Neuts (auto) 2.9 (1.3-6.7) K/mm3 Absolute Nucleated RBC 0.000 (0.0-0.012) K/mm3 Nucleated RBC % 0.0 (0.0-0.2) % Sodium 137 (137-145) mmol/L Potassium 4.0 (3.4-5.0) mmol/L Chloride 105 (98-107) mmol/L Carbon Dioxide 22 (22-30) mmol/L Anion Gap 10 (4-12) mmol/L BUN 17 (9-20) mg/dL Creatinine 1.30 (0.7-1.3) mg/dL Estim Creat Clear Calc 61 ml/min Estimated GFR 54 L (59 - ) Glucose 105 (65-110) mg/dL Lactic Acid 1.6 (0.7-2.0) mmol/L Calcium 9.3 (8.4-10.2) mg/dL Total Bilirubin 1.2 (0.2-1.3) mg/dL AST 41 (17-59) U/L ALT 35 (6-50) U/L Alkaline Phosphatase 65 (38-126) U/L Troponin I 0.026 (0.000-0.034) ng/mL NT-Pro-B Natriuret Pep 1290 H (19.9-100) pg/mL Total Protein 7.4 (6.3-8.2) g/dL Albumin 4.4 (3.5-5.1) g/dL <Rosa Swain, SWITCH CREW SUPERVISOR - Last Filed: 04/23/25 13:14> Lab Results 04/23/25 Range/Units 13:18 WBC 6.9 (4.5-10.0) K/mm3 RBC 4.69 (4.6-6.20) M/mm3 Hgb 16.5 (14.0-18.0) g/dL Hct 47.5 (42.0-52.0) % MCV 101.3 H (80-100) fl MCH 35.2 H (26-34) pg MCHC 34.7 (32-36) g/dl RDW 13.2 (11.5-14.5) % Plt Count 195 (150-375) k/mm3 MPV 9.4 (7.4-10.4) fl Immature Gran % (Auto) 0.1 (0-0.5) % Neut % (Auto) 42.6 L (45.5-73.1) % Lymph % (Auto) 38.4 (18.3-44.2) % Johnson % (Auto) 8.2 (2.6-8.5) % Eos % (Auto) 9.8 H (0-4.4) % Baso % (Auto) 0.9 (0.2-1.2) % Lymph # (Auto) 2.63 (0.9-3.2) K/mm3 Johnson # (Auto) 0.6 (0.1-0.6) K/mm3 Eos # (Auto) 0.7 H (0-0.3) K/mm3 Baso # (Auto) 0.1 (0.0-0.1) K/mm3 Abs Immat Gran (auto) 0.01 (0.00-0.031) K/mm3 Absolute Neuts (auto) 2.9 (1.3-6.7) K/mm3 Absolute Nucleated RBC 0.000 (0.0-0.012) K/mm3 Nucleated RBC % 0.0 (0.0-0.2) % Sodium 137 (137-145) mmol/L Potassium 4.0 (3.4-5.0) mmol/L Chloride 105 (98-107) mmol/L Carbon Dioxide 22 (22-30) mmol/L Anion Gap 10 (4-12) mmol/L BUN 17 (9-20) mg/dL Creatinine 1.30 (0.7-1.3) mg/dL Estim Creat Clear Calc 61 ml/min Estimated GFR 54 L (59 - ) Glucose 105 (65-110) mg/dL Lactic Acid 1.6 (0.7-2.0) mmol/L Calcium 9.3 (8.4-10.2) mg/dL Total Bilirubin 1.2 (0.2-1.3) mg/dL AST 41 (17-59) U/L ALT 35 (6-50) U/L Alkaline Phosphatase 65 (38-126) U/L Troponin I 0.026 (0.000-0.034) ng/mL NT-Pro-B Natriuret Pep 1290 H (19.9-100) pg/mL Total Protein 7.4 (6.3-8.2) g/dL Albumin 4.4 (3.5-5.1) g/dL <Julian Ogver III, DO - Last Filed: 04/23/25 18:45> Discharge Plan Discharge Clinical Impression: Bronchitis <Rosa Swain SWITCH CREW SUPERVISOR - Last Filed: 04/23/25 13:14> Patient Disposition: Home <Rosa Swain APRN - Last Filed: 04/23/25 13:14> Condition: Stable <Rosa Swain SWITCH CREW SUPERVISOR - Last Filed: 04/23/25 13:14> Instructions: Antibiotic Form, Acute Bronchitis (ED) <Rosa Swain APRN - Last Filed: 04/23/25 13:14> Patient Language: Occitan <Rosa Swain, SWITCH CREW SUPERVISOR - Last Filed: 04/23/25 13:14> Prescriptions: New cefdinir 300 mg capsule 300 mg PO Q12H Qty: 20 0RF prednisone 10 mg tablet See Taper PO DAILY 15 Days Qty: 45 0RF Taper: Prednisone Taper from 50 mg;15 days 50 mg DAILY for 3 Days and 0 Hour 40 mg DAILY for 3 Days and 0 Hour 30 mg DAILY for 3 Days and 0 Hour 20 mg DAILY for 3 Days and 0 Hour 10 mg DAILY for 3 Days and 0 Hour codeine-guaifenesin [Guaifenesin AC] 10-100 mg/5 mL liquid 5 ml PO Q6H PRN (Reason: cough) Qty: 120 0RF No Action aspirin 325 mg tablet 325 mg PO BID lidocaine 5 % ointment 1 applic topical DAILY carvedilol 6.25 mg tablet See Rx Instructions .ROUTE .COMPLEX Qty: 180 3RF Dose Instruction: TAKE 1 TABLET BY MOUTH EVERY 12 HOURS. MUST TAKE WITH FOOD/MEAL Rx Instructions: TAKE 1TABLET BY MOUTH EVERY 12 HOURS. MUST TAKE WITH FOOD/MEAL Jardiance 10 mg tablet 10 mg PO DAILY Qty: 30 5RF amiodarone 200 mg tablet 200 mg PO DAILY Qty: 30 0RF furosemide 40 mg tablet 40 mg PO BID hydrocodone-acetaminophen 5-300 mg tablet 1 tablet PO QHS PRN (Reason: pain) Qty: 7 0RF Qvar RediHaler 40 mcg/actuation HFA aerosol breath activated 1 inh inhalation Q12H Qty: 10.6 2RF Rx Instructions: rinse and spit multivitamin Tablet 1 tablet PO DAILY Fish Oil Capsule 1,000 mg PO DAILY diclofenac sodium 1 % Gel 2 g TOPICAL QID cyclobenzaprine 10 mg tablet 10 mg PO TID PRN (Reason: muscle spasm) Qty: 14 0RF lidocaine 5 % adhesive patch,medicated 3 patch topical DAILY Qty: 30 0RF Rx Instructions: leave on most painful area for up to 12 hrs sildenafil 100 mg tablet See Rx Instructions .ROUTE .COMPLEX Qty: 30 0RF Dose Instruction: TAKE 1 TABLET BY MOUTH DAILY NEEDED FOR SEXUAL ACTIVTY. ADMINSTER 30 MINUTES TO 4 HOURS BEFORE ACTIVITY Rx Instructions: TAKE 1 TABLET BY MOUTH DAILY NEEDED FOR SEXUAL ACTIVTY. ADMINSTER 30 MINUTES TO 4 HOURS BEFORE ACTIVITY omeprazole 40 mg capsule,delayed release(DR/EC) See Rx Instructions .ROUTE .COMPLEX Qty: 90 3RF Dose Instruction: TAKE 1 CAPSULE BY MOUTH DAILY Rx Instructions: TAKE 1 CAPSULE BY MOUTH DAILY albuterol sulfate 1.25 mg/3 mL solution for nebulization See Rx Instructions .ROUTE .COMPLEX Qty: 150 1RF Dose Instruction: USE 1 VIAL VIA NEBULIZER EVERY 4 TO 6 HOURS NEEDED FOR SHORTNESS OF BREATH OR WHEEZING Rx Instructions: USE 1 VIAL VIA NEBULIZER EVERY 4 TO 6 HOURS NEEDED FOR SHORTNESS OF BREATH OR WHEEZING amitriptyline 25 mg tablet 25 mg PO .QHS Qty: 90 1RF atorvastatin 40 mg tablet 40 mg PO DAILY Qty: 90 1RF gabapentin 600 mg tablet See Rx Instructions .ROUTE .COMPLEX Qty: 90 2RF Dose Instruction: TAKE 1 TABLET BY MOUTH EVERY DAY AT BEDTIME Rx Instructions: TAKE 1 TABLET BY MOUTH EVERY DAY AT BEDTIME albuterol sulfate 90 mcg/actuation HFA aerosol inhaler 2 puff inhalation Q4-6H PRN (Reason: Shortness Of Breath) Qty: 8.5 1RF losartan 50 mg tablet See Rx Instructions .ROUTE .COMPLEX Qty: 90 2RF Dose Instruction: TAKE 1 TABLET BY MOUTH DAILY Rx Instructions: TAKE 1 TABLET BY MOUTH DAILY benzonatate 200 mg capsule 200 mg PO TID PRN (Reason: cough) Qty: 30 0RF <Rosa Swain APRN - Last Filed: 04/23/25 13:14> Follow-up/Referrals: Hitesh Aguilar, [Primary Care Provider] - <Rosa Swain APRN - Last Filed: 04/23/25 13:14>
[2025-04-23 13:28] LABS: Basophils Absolute Auto 0.1 K/mm3 (0.0-0.1); Basophils Percent Auto 0.9 % (0.2-1.2); Eosinophils Absolute Auto 0.7 K/mm3 (0-0.3); Eosinophils Percent Auto 9.8 % (0-4.4); Hematocrit 47.5 % (42.0-52.0); Hemoglobin 16.5 g/dL (14.0-18.0); Immature Granulocyte Absolute 0.01 K/mm3 (0.00-0.031); Immature Granulocyte Percent A 0.1 % (0-0.5); Lymphocytes Absolute Auto 2.63 K/mm3 (0.9-3.2); Lymphocytes Percent Auto 38.4 % (18.3-44.2); Mean Corpuscular HGB Conc 34.7 g/dl (32-36); Mean Corpuscular Hemoglobin 35.2 pg (26-34); Mean Corpuscular Volume 101.3 fl (80-100); Mean Platelet Volume 9.4 fl (7.4-10.4); Monocytes Absolute Auto 0.6 K/mm3 (0.1-0.6); Monocytes Percent Auto 8.2 % (2.6-8.5); Neutrophils Absolute Auto 2.9 K/mm3 (1.3-6.7); Neutrophils Percent Auto 42.6 % (45.5-73.1); Platelet Count Result 195 k/mm3 (150-375); Red Blood Count 4.69 M/mm3 (4.6-6.20); Red Cell Distribution Width 13.2 % (11.5-14.5); White Blood Count 6.9 K/mm3 (4.5-10.0)
[2025-04-23 13:36] LABS: Lactic Acid Reflex 1.6 mmol/L (0.7-2.0)
[2025-04-23 13:37] LABS: Alanine Aminotransferase 35 U/L (6-50); Albumin Level 4.4 g/dL (3.5-5.1); Alkaline Phosphatase 65 U/L (38-126); Anion Gap 10 mmol/L (4-12); Aspartate Amino Transferase 41 U/L (17-59); Bilirubin,Total 1.2 mg/dL (0.2-1.3); Blood Urea Nitrogen 17 mg/dL (9-20); Calcium 9.3 mg/dL (8.4-10.2); Carbon Dioxide 22 mmol/L (22-30); Chloride 105 mmol/L (98-107); Estimated CRCL calculation 61 ml/min; Estimated Glomerular Filt Rate 54; Glucose 105 mg/dL (65-110); Sodium 137 mmol/L (137-145); Total Protein 7.4 g/dL (6.3-8.2)
[2025-04-23 13:49] LABS: NT Pro B Type Natriuretic Pept 1290 pg/mL (19.9-100); Troponin I 0.026 ng/mL (0.000-0.034)
[2025-04-23 14:07] VITALS: BP 187/116; PULSE 65; RESP 17; O2SAT 97
[2025-04-23 14:12] VITALS: PULSE 66; O2SAT 97
--- OUTSIDE RECORDS SUMMARY | 2025-04-23 15:19 | XMS_ITS | Referral Summary ---
Author Organization [facility] Address [address] [place] [address] Care Team Providers Care Adjunct Lecturer Name Role Phone Danny Bai Primary Care Provider Edgar Still MD Unavailable [phone] Darian Villalpando NP Unavailable Allergies No known [...] wound care. 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 Assessment & Plan (12/31/2023 11:15 AM METAL BURRER): Lower extremities with 1+ pitting edema bilaterally. [...] lesion 09/15/2021 Coronary artery disease invo lving [place] coronary artery of [place] heart without angina pectoris 09/03/2021 Overview (09/03/2021): Added automatically from request for surgery [id number] Painful orthopaedic hardware 01/07/2021 Overview (01/07/2021): Added automatically from request for surgery [id number] Class 1 obesity with body ma ss index (BMI) of 32.0 to 32.9 in adult 10/11/2019 Chronic pain 10/11/2019 Risk factors for obstructive sleep apnea 019 Left rotator cuff tear arthropathy 09/25/2019 Overview (09/25/2019): Added automatically from request for surgery [id number] History of left hip replacement 09/19/2019 Aftercare [...] on file Legal Sex Male 2:47 PM METAL BURRER Gender Identity Not on file Sexual Orientation [...] on file Medical Devices Implanted Type Area Grain Handler Device Identifier Shelf Expiration Date Model / Serial / Lot [employer] [id number] [employer]ornier Aequalis Perform 15mm Press Fit Long Post Shoulder - [id number] Implanted:Qty: 1 on 10/13/2019 by Damir Dale MD at [facility] Left: Shoulder [employer] 07/20/2024 [id number] / / [id number] [employer] [id number] Tornier Aequalis Perform 25mm Reverse Shoulder Standard Baseplate - [id number] Implanted:Qty: 1 on 10/13/2019 by Damir Dale MD at [facility] Left: Shoulder [employer] [id number] / / [id number] [employer] [id number] Aequalis Perform Reversed 5mm 30mm Peripheral Glenoid Screw - [id number] Implanted:Qty: 1 on 10/13/2019 by Damir Dale MD at [facility] Left: Shoulder [employer] [id number] / / [employer] [id number] Aequalis Perform Reversed 5mm 38mm Peripheral Glenoid Screw - [id number] Implanted:Qty: 1 on 10/13/2019 by Damir Dale MD at [facility] Left: Shoulder [employer] [id number] / / [employer] [id number] Tornier Aequalis Perform Od39 Mm Lateralize Reverse Shoulder +3 Mm Sphere Glenoid - [id number] Implanted:Qty: 1 on 10/13/2019 by Damir Dale MD at [facility] Left: Shoulder [employer] 07/10/2024 [id number] / / [id number] [employer] [id number] Insert 12.5d 6+ Mm 39mm Humeral Flex Shoulder Sterile - [id number] Implanted:Qty: 1 on 10/13/2019 by Damir Dale MD at [facility] Left: Shoulder [employer] 09/06/2024 [id number] / / [id number] [employer] [id number] Aequalis Ascend Flex Reverse Shoulder +0mm 3.5mm High Offset Tray - [id number] Implanted:Qty: 1 on 10/13/2019 by Damir Dale MD at [facility] Left: Shoulder [employer] 09/18/2024 [id number] / / [id number] [employer] [id number] Stem Humeral 70mm Shoulder Pressfit Aequalis Ascend Flex Ptc 132.5d 2b Standard - [id number] - [id number] Implanted:Qty: 1 on 10/13/2019 by Damir Dale MD at [facility] Left: Shoulder [employer] 03/16/2024 [id number] / [id number] / Procedures Procedure Name Priority Date/Time Associated Diagnosis Comments COLONOSCOPY 01/14/2022 11:51 AM CDT from Last 3 Months or Most Recently Relevant to Health Maintenance Results * COLONOSCOPY (01/14/2022 11:51 AM CDT) Anatomical Region Laterality Modality Other Narrative Procedure Note Edmund Gordon MD - 01/14/2022 11:51 AM CDT ENDOSCOPY LAB Patient Name: Sam Jacob Procedure Date: 01/14/2022 11:51 AM Admit Type: Outpatient Room: [facility] Date of : 1955 Instrument [...] Most Recently Relevant to Health Maintenance Insurance [facility] MEDICARE ADVANTAGE [facility] MEDICARE ADVANTAGE [facility] [place] [id number] [facility] MEDICARE Advance Directives For more information, please contact: [phone] * Full Code (Latest Code Status on File) Date Activated Date Inactivated Comments 09/15/2021 2:42 PM 09/20/2021 6:16 PM * Full Code Date Activated Date Inactivated Comments 10/13/2019 12:02 PM 10/14/2019 5:29 PM Care Teams Adjunct Lecturer Relationship Specialty Start Date End Date Danny Bai PA [address] [place] [address] PCP - General 12/27/20 Edgar Still MD [address] [place] [address] Referring Physician Cardiology 09/03/21 Darian Villalpando NP [address] [place] [address] Referring Physician Nurse Practitioner 01/07/24
--- OUTSIDE RECORDS SUMMARY | 2025-04-23 15:19 | XMS_ITS | Clinical Summary ---
Author Organization [facility] Address [address] [place] [address] Care Team Providers Care Packaging Associate Name Role Phone Danny Bai Primary Care Provider Edgar Still MD Unavailable [phone] Darian Villalpando NP Unavailable Allergies No known [...] wound care. 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 Assessment & Plan (12/31/2023 11:15 AM BUSINESS ADMINISTRATOR): Lower extremities with 1+ pitting edema bilaterally. [...] lesion 09/15/2021 Coronary artery disease invo lving [place] coronary artery of [place] heart without angina pectoris 09/03/2021 Overview (09/03/2021): Added automatically from request for surgery [id number] Painful orthopaedic hardware 01/07/2021 Overview (01/07/2021): Added automatically from request for surgery [id number] Class 1 obesity with body ma ss index (BMI) of 32.0 to 32.9 in adult 10/11/2019 Chronic pain 10/11/2019 Risk factors for obstructive sleep apnea 019 Left rotator cuff tear arthropathy 09/25/2019 Overview (09/25/2019): Added automatically from request for surgery [id number] History of left hip replacement 09/19/2019 Aftercare [...] of incident. Myocardial infarction (HCC) sile nt [place] found on stress test Asthma Hyperlipidemia Loss [...] on file Legal Sex Male 2:47 PM BUSINESS ADMINISTRATOR Gender Identity Not on file Sexual Orientation [...] Discontinued 01/14/2022 Medical Devices Implanted Type Area Medical Pathologist Device Identifier Shelf Expiration Date Model / Serial / Lot [employer]ier Inc [id number] Tornier Aequalis Perform 15mm Press Fit Long Post Shoulder - [id number] Implanted:Qty: 1 on 10/13/2019 by Damir Dale MD at [facility] Left: Shoulder [employer] Inc 07/20/2024 [id number] / / [id number] Tornier Inc [id number] Tornier Aequalis Perform 25mm Reverse Shoulder Standard Baseplate - [id number] Implanted:Qty: 1 on 10/13/2019 by Damir Dale MD at [facility] Left: Shoulder [employer] [id number] / / [id number] [employer] Inc [id number] Aequalis Perform Reversed 5mm 30mm Peripheral Glenoid Screw - [id number] Implanted:Qty: 1 on 10/13/2019 by Damir Dale MD at [facility] Left: Shoulder [employer] [id number] / / [employer]ier Inc [id number] Aequalis Perform Reversed 5mm 38mm Peripheral Glenoid Screw - [id number] Implanted:Qty: 1 on 10/13/2019 by Damir Dale MD at [facility] Left: Shoulder [employer] [id number] / / Tornier Inc [id number] Tornier Aequalis Perform Od39 Mm Lateralize Reverse Shoulder +3 Mm Sphere Glenoid - [id number] Implanted:Qty: 1 on 10/13/2019 by Damir Dale MD at [facility] Left: Shoulder [employer] Inc 07/10/2024 [id number] / / [id number] [employer]ornier Inc [id number] Insert 12.5d 6+ Mm 39mm Humeral Flex Shoulder Sterile - [id number] Implanted:Qty: 1 on 10/13/2019 by Damir Dale MD at [facility] Left: Shoulder [employer] Inc 09/06/2024 [id number] / / [id number] [employer] Inc [id number] Aequalis Ascend Flex Reverse Shoulder +0mm 3.5mm High Offset Tray - [id number] Implanted:Qty: 1 on 10/13/2019 by Damir Dale MD at [facility] Left: Shoulder [employer] Inc 09/18/2024 [id number] / / [id number] [employer] Inc [id number] Stem Humeral 70mm Shoulder Pressfit Aequalis Ascend Flex Ptc 132.5d 2b Standard - [id number] - [id number] Implanted:Qty: 1 on 10/13/2019 by Damir Dale MD at [facility] Left: Shoulder [employer] Inc 03/16/2024 [id number] / [id number] / Procedures Procedure Name Priority Date/Time Associated Diagnosis Comments COLONOSCOPY 01/14/2022 11:51 AM CDT from Last 3 Months or Most Recently Relevant to Health Maintenance Results * COLONOSCOPY (01/14/2022 11:51 AM CDT) Anatomical Region Laterality Modality Other Narrative Procedure Note Edmund Gordon MD - 01/14/2022 11:51 AM CDT ENDOSCOPY LAB Patient Name: Sam Jacob Procedure Date: 01/14/2022 11:51 AM Admit Type: Outpatient Room: [facility] 3 Date of : 1955 Instrument Name: [...] to Subscriber:Self Name:Sam Jacob Payer ID:[id number] (NAIC) Type:[facility] MEDIC[facility] Address: [place] [id number] UHC MEDICARE ADVANTAGE Member Subscriber Plan / Payer (Ef fective 2015-Present) Name:Sam Jacob Relation to Subscriber:Spouse Name:ASTER JACOB Date of :1959 (Home) Address: [address] [place] [address] Payer ID:[id number] (NAIC) Group ID:[id number] Type:[employer] Address: [address] [place] [id number] MEDICARE Advance Directives For more information, please contact: [phone] * Full Code (Latest Code Status on File) Date Activated Date Inactivated Comments 09/15/2021 2:42 PM 09/20/2021 6:16 PM * Full Code Date Activated Date Inactivated Comments 10/13/2019 12:02 PM 10/14/2019 5:29 PM Care Teams Packaging Associate Relationship Specialty Start Date End Date Danny Bai PA [address] [place] [address] PCP - General 12/27/20 Edgar Still MD [address] [place] [address] Referring Physician Cardiology 09/03/21 Darian Villalpando NP [address] [place] [address] Referring Physician Nurse Practitioner 01/07/24
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
[2025-04-23 16:30] VITALS: BP 168/98; PULSE 68; RESP 20; O2SAT 98
== END 2025-04-23 16:32 | disposition home or self-care (01) ==
PROVIDERS: Registered Nurse; Emergency Provider Emergency Medicine; PCP Internal Medicine
DX: J40 Bronchitis, not specified as acute or chronic (principal)
CPT/HCPCS: 36415; 71046; 80053; 83605; 83880; 84484; 85025; 93005; 99284

== ENCOUNTER 2025-08-28 09:49 | Outpatient (CLI) | payer MEDICARE, SELFPAY ==
--- NOTE | 2025-08-28 10:14 | ECHO_ITS ---
Patient Info Name: Sam Colby Age: 70 years : 1955 Gender: Male Ht: 73 in Wt: 255 lbs BSA: 2.48 m2 HR: 60 bpm BP: 150 / 100 mmHg Heart Rhythm: Sinus Rhythm Technical Quality: Fair Exam Date: 08/28/2025 10:18 AM Patient Status: O Admit Date: 08/28/2025 Exam Type: CA echo doppler color flow Complete two-dimensional, color flow and Doppler transthoracic echocardiogram is performed. Rn Recovery: Juli Pedersen Attending Provider: Kt Simmons DO Summary 1. Complete two-dimensional, color flow and Doppler transthoracic echocardiogram is performed. 2. Left ventricular chamber dimension is mildly enlarged. 3. Left ventricular systolic function is preserved, estimated at 50-55. 4. There is mild concentric increased left ventricular wall thickness. 5. The left ventricular diastolic function is grade I diastolic dysfunction. 6. E/e' 8 is minimally elevated. 7. Linear artifact in right ventricle suggestive of catheter(s), pacemaker lead(s), or ICD lead(s). 8. Left atrial chamber dimension is mildly enlarged. 9. Right atrial chamber dimension is mildly enlarged. 10. Linear artifact in the right atrium suggestive of catheter(s), pacemaker lead(s), or ICD lead(s). 11. There is mild aortic valve sclerosis. 12. There is trace aortic valve regurgitation. 13. No pulmonary hypertension, estimated pulmonary arterial systolic pressure is 24 mmHg. 14. The aortic root size at the sinus of Valsalva is borderline dilated at 4.2 cm. Left Ventricle E/e' 8 is minimally elevated. Left ventricular chamber dimension is mildly enlarged. Left ventricular systolic function is preserved, estimated at 50-55. There is mild concentric increased left ventricular wall thickness. The left ventricular diastolic function is grade I diastolic dysfunction. Right Ventricle Right ventricular chamber dimension is normal. Right ventricular systolic function is normal and with normal TAPSE 2.1 cm. Linear artifact in right ventricle suggestive of catheter(s), pacemaker lead(s), or ICD lead(s). Left Atria Left atrial chamber dimension is mildly enlarged. Right Atria Right atrial chamber dimension is mildly enlarged. Linear artifact in the right atrium suggestive of catheter(s), pacemaker lead(s), or ICD lead(s). Aortic Valve The aortic valve is trileaflet. There is mild aortic valve sclerosis. There is no aortic valve stenosis. There is trace aortic valve regurgitation. Pulmonic Valve There is no pulmonic regurgitation. Mitral Valve There is no mitral valve stenosis. There is no mitral valve regurgitation. Tricuspid Valve There is no tricuspid valve regurgitation. No pulmonary hypertension, estimated pulmonary arterial systolic pressure is 24 mmHg. Pericardium/Pleural There is no pericardial effusion. Inferior Vena Cava Normal inferior vena cava with >50% collapse upon inspiration consistent with normal right atrial pressure, 5 mmHg. Aorta The aortic root size at the sinus of Valsalva is borderline dilated at 4.2 cm. Left Ventricular Outflow Tract Name Value Normal LVOT 2D LVOT Diameter 2.5 cm LVOT Doppler LVOT Peak Velocity 78 cm/s LVOT Peak Gradient 2 mmHg LVOT Mean Gradient 1 mmHg LVOT VTI 15 cm LVOT VTI/AV VTI Ratio 0.6 LVOT Stroke Volume 77 ml LVOT CO 5.2 l/min LVOT CI 2.1 l/min/m2 Pulmonic Valve Name Value Normal RVOT Doppler RVOT Peak Velocity 55 cm/s RVOT Peak Gradient 1 mmHg PV Doppler PV Peak Velocity 108 cm/s PV Peak Gradient 5 mmHg Mitral Valve Name Value Normal MV Diastolic Function MV E Peak Velocity 53 cm/s MV A Peak Velocity 98 cm/s MV E/A 0.5 MV Decel Time (PW) 310 ms MV Annular TDI MV E/e' (Septal) 12.8 MV E/e' (Lateral) 6.4 MV E/e' (Average) 9.6 Tricuspid Valve Name Value Normal TV Regurgitation Doppler TR Peak Velocity 220 cm/s TR Peak Gradient 19 mmHg Estimated PAP/RSVP RA Pressure 5 mmHg <=5 PA Systolic Pressure 24 mmHg <36 RV Systolic Pressure 24 mmHg <36 TV Annular TDI TV Lateral Valentine s' Velocity 11.2 cm/s >=9.5 Aorta Name Value Normal Ascending Aorta Ao Root Diameter (MM) 3.4 cm Ao Root Diam Index (MM) 1.4 cm/m2 Aortic Valve Name Value Normal AV Doppler AV Peak Velocity 127 cm/s AV Peak Gradient 6 mmHg AV Mean Gradient 4 mmHg AV VTI 27 cm AV Area (Cont Eq VTI) 2.8 cm2 >=3.0 AV Area (Cont Eq Wally) 3.1 cm2 AV DI (Wally) 0.61 AV Regurgitation 2D LVOT Area 5.1 cm2 Ventricles Name Value Normal LV Dimensions 2D/MM IVS Diastolic Thickness (2D) 1.2 cm 0.6-1.0 LVID Diastole (2D) 5.2 cm 4.2-5.8 LVIW Diastolic Thickness (2D) 1.0 cm 0.6-1.0 LVID Systole (2D) 3.8 cm 2.5-4.0 LVOT Diameter 2.5 cm LV Mass (2D Cubed) 226.95 g 88.00-224.00 LV Mass Index (2D Cubed) 92 g/m2 49-115 Relative Wall Thickness (2D) 0.40 <=0.42 LV Fractional Shortening/Ejection Fraction 2D/MM LV Fractional Shortening (2D) 25 % 25-43 LV EF (2D Teichholz) 50 % LV Diastolic Volume (4C MOD) 159 ml LV EF (4C MOD) 58 % LV Diastolic Volume (2C MOD) 136 ml LV EF (2C MOD) 55 % LV Diastolic Volume (BP MOD) 151 ml 62-150 LV Diastolic Volume Index (BP MOD) 61 ml/m2 34-74 LV Systolic Volume (BP MOD) 65 ml 21-61 LV Systolic Volume Index (BP MOD) 26 ml/m2 11-31 LV EF (BP MOD) 57 % 52-72 LV Diastolic Length (4C) 8.8 cm LV Systolic Length (4C) 7.5 cm LV Stroke Volume (4C MOD) 92 ml Atria Name Value Normal LA Dimensions LA Dimension (MM) 5.4 cm 3.0-4.0 LA Volume (4C A-L) 75 ml LA Volume (BP A-L) 87 ml RA Dimensions RA Area (4C) 21.1 cm2 <=18.0 Report Signatures
--- OUTSIDE RECORDS SUMMARY | 2025-08-28 11:09 | XMS_ITS | Clinical Summary ---
Author Organization [facility] Address [address] [place] [address] Care Team Providers Care Slat Grader Name Role Phone Hitesh Aguilar Primary Care Provider [phone] Source Comments [facility],non-owned Affiliates and Associated Physician Practices is amultiple site organization consisting of ambulatory clinics and hospital sitesin [place], [place], [place] and [place]. This disclosure is being madepursuant to the Care Everywhere program and may not contain all information available regarding this patient. Last updated 18.[facility] Allergies No known active allergies Medications * [...] morning and evening meal Active HYDROcodone-acet aminophen ([place]) 5-325 MG tablet Take 1 (one) tablet [...] on file Legal Sex Male 12:58 PM MUTUEL TELLER Gender Identity Not on file Sexual Orientation Not on file Last Filed Vital Signs Vital Sign Reading Time Taken Comments Blood Pressure 128/58 10/17/2022 8:20 AM MUTUEL TELLER Pulse 88 10/17/2022 8:34 AM MUTUEL TELLER Temperature 37.6 C (99.6 F) 10/17/2022 8:20 AM MUTUEL TELLER Respiratory Rate 16 10/17/2022 8:20 AM MUTUEL TELLER Oxygen Saturation 97% 10/17/2022 8:20 AM MUTUEL TELLER Inhaled Oxygen Concentration - - Weight 107 kg (236 lb) 10/16/2022 7:57 AM MUTUEL TELLER Height 185.4 cm (6' 1) 10/16/2022 7:57 AM MUTUEL TELLER Body Mass Index 31.14 10/16/2022 7:57 AM MUTUEL TELLER Plan of Treatment Health Maintenance Due Date [...] (2 - Td or Tdap) 04/03/2023 04/03/2013 MEDICARE AWV CALENDAR YEAR 2024 COVID-19 VACCINE (2024- season) 2025 07/29/2023, 08/16/2022, 02/12/2022, Additional history exists INFLUENZA VACCINE (#1) 2025 , 08/12/2021, 08/01/2020, Additional history exists Respiratory Syncytial Virus (RSV) Vaccine Pt: or over 60 yrs (1 - 1-dose 75+ series) 2028 COLON MONITORING 01/15/2032 01/14/2022, 08/2014, 09/04/2014, Additional history exists COLONOSCOPY - COLON CA SCREENING 01/15/2032 01/14/2022, 09/04/2014, 09/04/2014, Additional history exists Colorectal Cancer Screening 01/15/2032 DEPRESSION SCREENING Completed 04/03/2025, 03/28/20 24 HEPATITIS B VACCINE Aged Out No longe [...] this topic Medical Devices Implanted Type Area Director Of Events Device Identifier Shelf Expiration Date Model / Serial / Lot Shell Actb 58mm 3 Hl Poly R3 Std Implanted:Qty: 1 on 10/16/2022 by Yunier Novoa MD at [facility] Right: [employer] 03/09/2032 [id number] / / [id number] Screw 6.5mm 40mm Sphrcl Head Hip Actb Implanted:Qty: 1 on 10/16/2022 by Yunier Novoa MD at [facility] Right: [employer] 04/16/2032 [id number] / / [id number] Liner Actb R3 0d 58mm 40mm Xlpe Implanted:Qty: 1 on 10/16/2022 by Yunier Novoa MD at [facility] Right: [employer] 03/26/2031 [id number] / / [id number] Stem Fem 143mm Hip 126d 4 10/07 Lat Ofst Implanted:Qty: 1 on 10/16/2022 by Yunier Novoa MD at [facility] Right: [employer] 05/18/2028 [id number] / / [id number] Head Fem +4mm 10/07 Med Tpr 40mm Hip Blx Implanted:Qty: 1 on 10/16/2022 by Yunier Novoa MD at [facility] Right: [employer] 03/25/2032 [id number] / / [id number] Procedures Procedure Name Priority Date/Time Associated Diagnosis Comments ENDOSCOPY, COLON, SCREENING Routine 09/04/2014 8:12 AM MUTUEL TELLER from Last 3 Months or Most Recently Relevant to Health Maintenance Results * ENDOSCOPY, COLON, SCREENING (09/04/2014 8:12 AM MUTUEL TELLER) Report Endoscopy POC _ Patient Name: Esteban Jacob Procedure Date: 09/04/2014 8:12 AM Date of : 1955 Admit Type: Outpatient Age: 59 Gender: Male Attending MD: Ryan Chilel MD _ Procedure: Colonoscopy Indications: Screening for colorectal malignant neoplasm Providers: Ryan Chilel MD (Doctor), Gwendolyn Rios RN, Balaji Brink, Conductor Pullman Referring MD: Kory Rosado (Referring MD) Medicines: [...] Endo clip. Procedure Code(s): --- Professional --- 23660, Colonoscopy, flexible, proximal to splenic flexure; with removal of tumor(s), polyp(s), or other lesion(s) by snare technique --- Technical --- 26187, Colonoscopy, flexible, proximal to splenic flexure; with [...] (without mention of hemorrhage) CPT copyright 2013 [employer]. All rights reserved. The codes documented in this report are preliminary and upon supervisor cloth winding review may be revised to meet current compliance requirements. Ryan Chilel MD 09/04/2014 9:14 AM Number of Addenda: 0 Note Initiated On: 09/04/2014 8:12 AM [facility] ENDOSCOPY 09/04/2014 8:12 AM MUTUEL TELLER Ryan Chilel MD GI PROCEDURE ORDERABLES E dited Result - Final [facility] ENDOSCOPY from Last 3 Months or Most Recently Relevant to Health Maintenance Insurance Member Subscriber Plan / Payer (Ef fective 2023-Present) Name:Esteban murillo Relation to Subscriber:Self Name:CecilEsteban Payer ID:[id number] (NAIC) Type:Medicare-Managed Care Address: [place] [id number] [employer] MANAGED MEDICARE ADV [facility] MEDICARE ADV [facility] MA[facility] MEDICARE ADV Member Subscriber Plan / Payer (Ef fective 2021-Present) Name:Esteban Jacob Relation to Subscriber:Self Name:ESTEBAN JACOB Payer ID:[id number] (NAIC) Type:Medicare-Managed Care Address: [place] [id number] [facility] MANAGED MEDICARE ADV Member Subscriber Plan / Payer (Ef fective 2021-Present) Name:Esteban Jacob D Relation to Subscriber:Self Name:ESTEBAN JACOB Payer ID:[id number] (NAIC) Type:Medicare-Managed Care Address: [place] [id number] [facility] MANAGED MEDICARE ADV [facility] MEDICARE ADV [facility] MEDICARE ADV [facility] MEDICARE ADV [facility] MEDICARE ADV [facility] MEDICARE ADV [facility] MEDICARE ADV [facility] MANAGED MEDICARE ADV [facility] MA[facility] MEDICARE ADV Member Subscriber Plan / Payer (Ef fective 2021-) Name:Esteban Jacob Demetris Relation to Subscriber:Self Name:ESTEBAN JACOB Payer ID:[id number] (NAIC) Type:Medicare-Managed Care Address: [place] [id number] [facility] MANAGED MEDICARE ADV Member Subscriber Plan / Payer (Ef fective 2021-) Name:Cecil Esteban Demetris Relation to Subscriber:Self Name:ESTEBAN JACOB Demetris Payer ID:[id number] (NAIC) Type:Medicare-Managed Care Address: [place] [id number] [facility] MANAGED MEDICARE ADV Member Subscriber Plan / Payer ( fective 2021-) Name:Cecil Esteban D Relation to Subscriber:Self Name:ESTEBAN JACOB Demetris Payer ID:[id number] (NAIC) Type:Medicare-Managed Care Address: [place] [phone] [facility] MANAGED MEDICARE ADV Member Subscriber Plan / Payer ( fective 2021-) Name:Esteban Jacob Relation to Subscriber:Self Name:CECILESTEBAN Demetris Payer ID:[id number] (NAIC) Type:Medicare-Managed Care Address: [place] [id number] [facility] MA[facility]ED MEDICARE ADV Member Subscriber Plan / Payer (Ef fective 2021-) Name:Cecil Esteban Demetris Relation to Subscriber:Self Name:ESTEBAN JACOB Payer ID:[id number] (NAIC) Type:Medicare-Managed Care Address: [place] [phone] [facility] MANAGED MEDICARE ADV Member Subscriber Plan / Payer ( fective 2021-Present) Name:Esteban Jacob Relation to Subscriber:Self Name:ESTEBAN JACOB Payer ID:[id number] (NAIC) Type:Medicare-Managed Care Address: [place] [phone] [facility] MANAGED MEDICARE ADV Member Subscriber Plan / Payer (Ef fective 2021-Present) Name:Esteban Jacob Relation to Subscriber:Self Name:ESTEBAN JACOB Payer ID:[id number] (NAIC) Type:Medicare-Managed Care Address: [place] [phone] [facility] MANAGED MEDICARE ADV Member Subscriber Plan / Payer ( fective 2021-) Name:Esteban Jacob Relation to Subscriber:Self Name:ESTEBAN JACOB Payer ID:[id number] (NAIC) Type:Medicare-Managed Care Address: [place] [phone] [facility] MA[facility]ED MEDICARE ADV Member Subscriber Plan / Payer ( fective 2021-) Name:Esteban Jacob Relation to Subscriber:Self Name:ESTEBAN JACOB Payer ID:[id number] (NAIC) Type:Medicare-Managed Care Address: [place] [phone] [facility] MANAGED MEDICARE ADV Member Subscriber Plan / Payer ( fective 2021-Present) Name:Esteban Jacob Relation to Subscriber:Self Name:ESTEBAN JACOB Payer ID:[id number] (NAIC) Type:Medicare-Managed Care Address: [place] [phone] [facility] MANAGED MEDICARE ADV Member Subscriber Plan / Payer (Ef fective 2021-Present) Name:Esteban Jacob Relation to Subscriber:Self Name:ESTEBAN JACOB Payer ID:[id number] (NAIC) Type:Medicare-Managed Care Address: [place] [phone] [facility] MANAGED MEDICARE ADV Member Subscriber Plan / Payer (Ef fective 2021-Present) Name:Esteban Jacob D Relation to Subscriber:Self Name:ESTEBAN JACOB D Payer ID:[id number] (NAIC) Type:Medicare-Managed Care Address: [address] MANAGED MEDICARE ADV Member Subscriber Plan / Payer ( fective 2021-Present) Name:Esteban Jacob Relation to Subscriber:Self Name:ESTEBAN JACOB Payer ID:[id number] (NAIC) Type:Medicare-Managed Care Address: [address] MANAGED MEDICARE ADV Member Subscriber Plan / Payer ( fective 2021-Present) Name:Esteban Jacob Relation to Subscriber:Self Name:ESTEBAN JACOB Payer ID:[id number] (NAIC) Type:Medicare-Managed Care Address: [place] [phone] [facility] MA[facility]ED MEDICARE ADV Member Subscriber Plan / Payer (Ef fective 2021-Present) Name:Esteban Jacob D Relation to Subscriber:Self Name:ESTEBAN JACOB Payer ID:[id number] (NAIC) Type:Medicare-Managed Care Address: [place] [phone] [facility] MANAGED MEDICARE ADV Member Subscriber Plan / Payer ( fective 2021-Present) Name:Esteban Jacob D Relation to Subscriber:Self Name:ESTEBAN JACOB Payer ID:[id number] (NAIC) Type:Medicare-Managed Care Address: [place] [phone] [facility] MANAGED MEDICARE ADV Member Subscriber Plan / Payer ( fective 2021-Present) Name:Esteban Jacob D Relation to Subscriber:Self Name:ESTEBAN JACOB Demetris Payer ID:[id number] (NAIC) Type:Medicare-Managed Care Address: [place] [phone] [facility] MANAGED MEDICARE ADV Member Subscriber Plan / Payer ( fective 2021-) Name:Cecil Esteban D Relation to Subscriber:Self Name:CECILESTEBAN Demetris Payer ID:[id number] (NAIC) Type:Medicare-Managed Care Address: [place] [phone] [facility] MANAGED MEDICARE ADV [facility]ED MEDICARE ADV Member Subscriber Plan / Payer ( fective 2021-) Name:Cecil Esteban D Relation to Subscriber:Self Name:CECILESTEBAN Demetris Payer ID:[id number] (NAIC) Type:Medicare-Managed Care Address: [place] [phone] [facility] MANAGED MEDICARE ADV Member Subscriber Plan / Payer ( fective 2021-Present) Name:Esteban Jacob Relation to Subscriber:Self Name:ESTEBAN JACOB Payer ID:[id number] (NAIC) Type:Medicare-Managed Care Address: [address] MANAGED MEDICARE ADV Member Subscriber Plan / Payer ( fective 2021-Present) Name:Esteban Jacob Relation to Subscriber:Self Name:ESTEBAN JACOB Payer ID:[id number] (NAIC) Type:Medicare-Managed Care Address: [address] MANAGED MEDICARE ADV Member Subscriber Plan / Payer ( fective 2021-Present) Name:Esteban Jacob Relation to Subscriber:Self Name:ESTEBAN JACOB Payer ID:[id number] (NAIC) Type:Medicare-Managed Care Address: [address] MANAGED MEDICARE ADV Advance Directives * Full Code (Latest Code Status on File) Date Activated Date Inactivated Comments 10/16/2022 2:31 PM 10/17/2022 3:19 PM Care Teams Slat Grader Relationship Specialty Start Date End Date Hitesh Aguilar DO [address] [place] [id number] PCP - General Internal Medicine 04/03/25
--- OUTSIDE RECORDS SUMMARY | 2025-08-28 11:09 | XMS_ITS | Patient Health Record ---
Author Organization [facility] Address [address] [place] [address] Care Team Providers Care Scientific Process Operator Name Role Phone CHARLI BONILLA Unavailable [phone] Reason For Referral No Information Problems Problem Type SNOMED Code ICD Code Onset Dates Problem Status W/U Status Risk Notes Problem Coronary arteriosclerosis (disorder) (34900335) CAD in [place]ilkat artery (I25.10) Active confirmed Plan Of Treatment No Information Insurance Providers Payer Name Payer Address Payer Phone Subscriber Number Group Number Insured Name Patient Relationship to Insured Coverage Start Date Coverage End Date [employer] [facility] [address] [place] [address] [id number] Sam Colby Self - patient is the insured [place] [address] [address] [place], [place] [id number] Sam Colby Self - patient is the insured
--- OUTSIDE RECORDS SUMMARY | 2025-08-28 11:09 | XMS_ITS | Clinical Summary ---
Author Organization [facility] Address [address] [place] [address] Care Team Providers Care Procurement Buyer Name Role Phone Edgar Still MD Unavailable [phone] Darian Villalpando NP Unavailable Hitesh Aguilar DO Primary Care Provider [phone] Allergies No known active allergies Medications amitriptyline (ELAVIL) 25 mg tablet Take 1 tablet (25 mg total) by mouth nightly as needed for sleep Active omeprazole (PriLOSEC) 40 mg capsuleIndicat ions:Treatment of Non-Bleeding Gastric Disorder,acid reflux Take 1 capsule (40 mg total) by mouth every morning Active albuterol 1.25 mg/3 mL nebulizer solutionIndica tions:Acute Asthma Attack Take 3 mL (1.25 mg total) by nebulization as needed for wheezing or shortness of breath Active gabapentin (NEURONTIN) 600 mg tabletIndicati ons:Neuropathi c Pain Take 1 tablet (600 mg total) by mouth nightly 1 Active multivitamin capsuleIndicat ions:Vitamin Deficiency Prevention Take 1 capsule by mouth every morning Active docosahexaenoi c acid/epa (FISH OIL ORAL)Indicatio ns:supplement Take 1 capsule by mouth every morning Active carvediloL (COREG) 25 mg tablet Take 2 tablets (50 mg total) by mouth 2 (two) times a day with meals 120 tablet 3 1 Active aspirin 325 mg enteric coated tablet Take 1 tablet (325 mg total) by mouth daily 1 Active atorvastatin (LIPITOR) 80 mg tablet Take 1 tablet (80 mg total) by mouth nightly 30 tablet 3 1 Active predniSONE (DELTASONE) 20 mg tablet 4 Active sildenafiL (VIAGRA) 100 mg tablet TAKE 1 TABLET BY MOUTH DAILY NEEDED FOR SEXUAL ACTIVTY. ADMINSTER 30 MINUTES TO 4 HOURS BEFORE ACTIVITY 4 Active guaiFENesin-co deine (GUAITUSS AC) liquid 100-10 mg/5 mL TAKE 5 ML BY MOUTH EVERY 6 HOURS NEEDED FOR COUGH 5 Active cyclobenzaprin e (FLEXERIL) 10 mg tablet 5 Active losartan (COZAAR) 100 mg tablet Take 1 tablet (100 mg total) by mouth daily 5 Active clindamycin (CLEOCIN) 300 mg capsule Take 1 capsule (300 mg total) by mouth 4 (four) times a day for 5 days 20 capsule 5 07/30/20 25 Active Problems Problem Noted Date Diagnosed Date Cardiomyopathy, ischemic 07/16/2025 COLTON (obstructive sleep apnea) 03/02/2024 Platelets decreased [...] wound care. 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 Assessment & Plan (12/31/2023 11:15 AM LOSS PREVENTION OFFICER): Lower extremities with 1+ pitting edema bilaterally. [...] lesion 09/15/2021 Coronary artery disease invo lving [place] coronary artery of [place] heart without angina pectoris 09/03/2021 Overview (09/03/2021): Added automatically from request for surgery [id number] Painful orthopaedic hardware 01/07/2021 Overview (01/07/2021): Added automatically from request for surgery [id number] Class 1 obesity with body ma ss index (BMI) of 32.0 to 32.9 in adult 10/11/2019 Chronic pain 10/11/2019 Risk factors for obstructive sleep apnea 019 Left rotator cuff tear arthropathy 09/25/2019 Overview (09/25/2019): Added automatically from request for surgery [id number] History of left hip replacement 09/19/2019 Aftercare [...] and soft tissue 2 Actinic keratosis 05/02/2012 Encounters Date Type Department Care Team Description 08/01/2025 10:45 AM CDT Ancillary Procedure [facility] [address] [place] [address] [phone] Automatic implantable cardiac defibrillator in situ (Primary Dx); Cardiomyopathy, ischemic 07/26/2025 Orders Only [facility] [address] [place] [address] [phone] Lenin Obregon MD Cardiomyopathy, ischemic (Primary Dx) 07/25/2025 4:26 PM CDT Anesthesia Event [facility] Electrophysiology Lab [address] [place] [address] [phone] Mauricio Terrell MD Small, Yunier Wong MD 07/25/2025 3:25 PM CDT - 07/25/2025 5:00 PM CDT Surgery [facility] Electrophysiology Lab [address] [place] [address] [phone] Lenin Obregon MD INSERT/REPLACE IMPLANTABLE CARDIOVERTER-DEFIBR ILLATOR (ICD) DUAL CHAMBER SYSTEM [id number] 07/25/2025 12:54 PM CDT - 07/25/2025 7:54 PM CDT Hospital Encounter [facility] Electrophysiology [facility] [address] [place] [address] [phone] Lenin Obregon MD Cardiomyopathy, ischemic Discharge Disposition: Discharge to home or self care 07/25/2025 Orders Only [facility] [address] [place] [address] [phone] Lenin Obregon MD Cardiomyopathy, ischemic (Primary Dx) 07/17/2025 Orders Only [facility] [address] [place] [address], [place] [address] Provider, MD Saba 07/16/2025 9:45 AM CDT Lab [facility] Outpatient Lab [address] [place] [address] Other cardiac arrhythmia 07/16/2025 9:00 AM CDT Office Visit [facility] [address] [facility] [address] [address] Lenin Obregon MD Cardiac arrhythmia, unspecified cardiac arrhythmia type (Primary Dx) from Last 3 Months Immunizations Immunization Administration Dates Next Due Influenza, [...] drained from hip CORONARY ARTERY BYPASS GRAFT CARDIAC ELECTROPHYSIOLOGY PROCEDURE 07/25/2025 N/A Procedure: INSERT/REPLACE IMPLANTABLE CARDIOVERTER-DEFIBRILLA TOR (ICD) DUAL CHAMBER SYSTEM 20032; Surgeon: Lenin Obregon MD; Location: [facility] EP LAB; Service: Cardiovascular; Laterality: N/A; Medical devices from this surgery are in the Medical Devices section. Medical History Medical History Date Comments Shoulder pain GERD (gastroesophageal reflux disease) Cervical spine disease Hypertension Awareness under anesthesia Woke up during R shoulder arthroplasty, patient was told by surgeon he was thrashing around. Patient was unaware of this event. No recollection of incident. Myocardial infarction (HCC) sile nt [place] found on stress test Asthma Hyperlipidemia Loss [...] more drinks on one occasion? Never 01/14/2022 Personal Safety Answer Date Recorded Have you ever been in or are you currently in a harmful physical or emotional relationship or is someone making you feel afraid or unsafe? 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 Gender Identity Not on file Sexual Orientation Not on file Last Filed Vital Signs Vital Sign Reading Time Taken Comments Blood Pressure 179/88 07/25/2025 7:36 PM CDT Pulse 75 07/25/2025 7:20 PM CDT Temperature 36.6 C (97.8 F) 07/25/2025 1:46 PM CDT Respiratory Rate 17 01/14/2022 1:15 PM CDT Oxygen Saturation 92% 07/25/2025 6:40 PM CDT Inhaled Oxygen Concentration - - Weight 115.4 kg (254 lb 6.6 oz) 07/25/2025 1:46 PM CDT Height 185.4 cm (6' 1) 07/25/2025 1:46 PM CDT Body Mass Index 33.57 07/25/2025 1:46 PM CDT Plan of Treatment Health Maintenance Due Date Last Done Comments Depression Screening 1955 Hepatitis C Screening 1955 Hepatitis B Screening 1971 Well Visit 65+ 2018 Pneumococcal vaccine 65+ (2 of 2 - PPSV23, PCV20, or PCV21) 06/20/2019 04/25/2019 Fall Risk Assessment 09/20/2022 09/20/2021 Covid-19 Vaccine (4 - 2024-2 6 season) 2025 08/12/2021, 01/25/2021, 01/03/2021 Influenza Vaccine (#1) 2025 , 08/12/2021, 08/01/2020, Additional history exists Colon Cancer Screening-Colonoscopy 01/15/2032 01/14/2022 DTaP/Tdap/Td Vaccine (3 - Td or Tdap) 09/22/2034 09/22/2024, 10/06/2023, 04/03/2013, Additional history exists Colon Cancer Screening-CT Colonography Discontinued 01/14/2022 Colon Cancer Screening-DNA Stool Discontinued 01/15/20 Colon Cancer Screening-FIT Discontinued 01/14/2022 Colon Cancer Screening-Sigmoidoscopy Discontinued 01/14/2022 Zoster Vaccine Completed 04/06/2024, 02/01/2024 Medical Devices Implanted Type Area Lighting Designer Device Identifier Shelf Expiration Date Model / Serial / Lot Medtronic Inc [place] [address] Icd Mri Surescan Df4 [id number] - [id number] - [id number] Implanted:Qty: 1 on 07/25/2025 by Lenin Obregon MD at [facility] ICD Medtronic Inc 07/22/2026 [id number] / [id number] / Medtronic Inc Capsurefix Novus 6.2fr 2mm 52cm Bipolar Screw In Implantable Latex Free [id number] - [id number] - [id number] Implanted:Qty: 1 on 07/25/2025 by Lenin Obregon MD at [facility] Lead N/A: Atria Medtronic Inc [id number] 03/20/2027 507 6-52 / [id number] / Medtronic Inc Sprint Quattro Secure 62cm Tripolar Screw In Extendable [id number] - [id number] - [id number] Implanted:Qty: 1 on 07/25/2025 by Lenin Obregon MD at [facility] Lead N/A: Ventricle Medtronic Inc 05/16/2027 [id number] / [id number] / Tornier Inc [id number] Tornier Aequalis Perform 15mm Press Fit Long Post Shoulder - [id number] Implanted:Qty: 1 on 10/13/2019 by Damir Dale MD at [facility] Left: Shoulder 5k Fans [employer] Inc 07/20/2024 [id number] / / [id number] Tornier Inc [id number] Tornier Aequalis Perform 25mm Reverse Shoulder Standard Baseplate - [id number] Implanted:Qty: 1 on 10/13/2019 by Damir Dale MD at [facility] Left: Shoulder 5k [employer] Inc [id number] / / [id number] Tornier Inc [id number] Aequalis Perform Reversed 5mm 30mm Peripheral Glenoid Screw - [id number] Implanted:Qty: 1 on 10/13/2019 by Damir Dale MD at [facility] Left: Shoulder [employer] [id number] / / Tornier Inc [id number] Aequalis Perform Reversed 5mm 38mm Peripheral Glenoid Screw - [id number] Implanted:Qty: 1 on 10/13/2019 by Damir Dale MD at [facility] Left: Shoulder 5k Fans [employer] Inc [id number] / / Tornier Inc [id number] Tornier Aequalis Perform Od39 Mm Lateralize Reverse Shoulder +3 Mm Sphere Glenoid - [id number] Implanted:Qty: 1 on 10/13/2019 by Damir Dale MD at [facility] Left: Shoulder 5k [employer] Inc 07/10/2024 [id number] / / [id number] Tornier Inc [id number] Insert 12.5d 6+ Mm 39mm Humeral Flex Shoulder Sterile - [id number] Implanted:Qty: 1 on 10/13/2019 by Damir Dale MD at [facility] Left: Shoulder [employer] 09/06/2024 [id number] / / [id number] Tornier Inc [id number] Aequalis Ascend Flex Reverse Shoulder +0mm 3.5mm High Offset Tray - [id number] Implanted:Qty: 1 on 10/13/2019 by Damir Dale MD at [facility] Left: Shoulder [employer] 09/18/2024 [id number] / / [id number] Tornier Inc [id number] Stem Humeral 70mm Shoulder Pressfit Aequalis Ascend Flex Ptc 132.5d 2b Standard - [id number] - [id number] Implanted:Qty: 1 on 10/13/2019 by Damir Dale MD at [facility] Left: Shoulder [employer] 03/16/2024 [id number] / [id number] / Procedures Procedure Name Priority Date/Time Associated Diagnosis Comments DEVICE CHECK - IN OFFICE Routine 08/01/2025 10:53 AM CDT Cardiomyopathy, ischemic XR CHEST PA LATERAL 2 VIEWS Timed 07/25/2025 7:01 PM CDT ICD DC NEW Routine 07/25/2025 5:25 PM CDT Cardiomyopathy, ischemic CARDIOLOGY DOCUMENT SCAN Routine 07/17/2025 9:53 AM CDT EGFR Routine 07/16/2025 10:15 AM CDT Other cardiac arrhythmia DIFFERENTIAL AUTO Routine 07/16/2025 10: 15 AM CDT Other cardiac arrhythmia CBC WITH AUTO DIFFERENTIAL Routine 07/16/2025 10:15 AM CDT Other cardiac arrhythmia BASIC METABOLIC PANEL Routine 07/16/2025 10:15 AM CDT Other cardiac arrhythmia ECG 12-LEAD Routine 07/16/2025 9:38 AM CDT Cardiac arrhythmia, unspecified cardiac arrhythmia type COLONOSCOPY 01/14/2022 11:51 AM CDT from Last 3 Months or Most Recently Relevant to Health Maintenance Results * DEVICE CHECK - IN OFFICE (08/01/2025 10:53 AM CDT) Anatomical Region Laterality Modality Other Narrative 08/01/2025 1:26 PM CDT Table formatting from the original result was not included. BiV ICD CHECK (IN OFFICE) Patient ID: Sam Jacob is a 70 y.o. male. This patient received a Medtronic ICD. They had a routine in office device interrogation on 08/01/25. Device implant indications: Ischemic cardiomyopathy Interrogation of the patient's device demonstrates the following: Presenting EGM: A sense V sense at 79 bpm Underlying rhythm: A sense V sense at 79 bpm Original Device Settings Right Atrium Right Ventricle Sensitivity (mV) 0.3 mV 0.3 mV Pacing Outputs 3.5 V @ 0.4 ms 3.5 V @ 0.4 ms Testing Measurements Right Atrium Right Ventricle Sensitivity (mV) 2.0 mV 20.0 mV Impedence (Ohms) 475 ohms 456 ohms Pace Threshold 0.75 V @ 0.4 ms 0.75 V @ 0.4 ms Pacing % 46 % 0.1 % HV Lead Impedance N/A 49 ohms Battery Status: 12 years to [facility], charge time n/a seconds. Episodes last 90 days/Comments: AF [place] 0 % No ventricular high rate NORMAL DEVICE FUNCTION PROGRAMMED MEDICATIONS: Anti-coagulant(s): Aspirin 325 mg daily Anti-arrhythmic(s): Coreg 50 mg twice a day PLAN: 1) Medtronic BiV ICD evaluation 2) Medtronic remote transmission scheduled in 3 months. 3) Programming appropriate for device settings 4) Aquacell removed, L subclavian incision with no bruising, minimal swelling and no pain complaints from pt. Home monitor is working, reviewed incision care at home and L arms restrictions, scheduled for one month follow up Gela Hurtado RN us Lenin Obregon MD CV CARDIAC SERVICES PROC EDURES Final Result * X-ray chest 2 views (07/25/2025 7:01 PM CDT) Anatomical Region Laterality Modality Body, Chest N/A Computed Radiogr aphy 07/25/2025 7:45 PM CDT Impressions 07/25/2025 7:45 PM CDT 1. Internal cardiac defibrillator which follows an expected course without evidence of pneumothorax. 2. Otherwise negative chest radiograph. COMMENT: Please see above for additional findings. Electronically signed by: Tesfaye Hines M.D. Narrative 07/25/2025 7:45 PM CDT XR CHEST PA LATERAL 2 VIEWS HISTORY: Status post cardiac device placement Rule out pneumothorax COMPARISON: None available A chest radiograph in the PA and lateral projections were presented. FINDINGS: An internal cardiac defibrillator is present entering from the left subclavian approach and follows an expected course. The patient is status post a median sternotomy. There is no evidence of pneumothorax. The osseous structures and chest wall are grossly within expected limits. The mediastinum and raymond within expected limits. The cardiac silhouette within normal size limits. The lateral and posterior costophrenic angles are preserved bilaterally. No definite infiltrates, suspicious opacities or abnormal interstitial markings are appreciated. The included portion of the upper abdomen is within expected limits. Procedure Note Tesfaye Hines MD - 07/25/2025 XR CHEST PA LATERAL 2 VIEWS HISTORY: Status post cardiac device placement Rule out pneumothorax COMPARISON: None available A chest radiograph in the PA and lateral projections were presented. FINDINGS: An internal cardiac defibrillator is present entering from the left subclavian approach and follows an expected course. The patient is status post a median sternotomy. There is no evidence of pneumothorax. The osseous structures and chest wall are grossly within expected limits. The mediastinum and raymond within expected limits. The cardiac silhouette within normal size limits. The lateral and posterior costophrenic angles are preserved bilaterally. No definite infiltrates, suspicious opacities or abnormal interstitial markings are appreciated. The included portion of the upper abdomen is within expected limits. IMPRESSION: 1. Internal cardiac defibrillator which follows an expected course without evidence of pneumothorax. 2. Otherwise negative chest radiograph. COMMENT: Please see above for additional findings. Electronically signed by: Tesfaye Hines M.D. us Lenin Obregon MD IMG XR PROCEDURES Final Result * ICD DC NEW (07/25/2025 5:25 PM CDT) Anatomical Region Laterality Modality X-Ray Angiograph y Narrative 07/25/2025 5:56 PM CDT Table formatting from the original result was not included. CARDIAC IMPLANTABLE ELECTRONIC DEVICE (CIED) PLACEMENT REPORT PROCEDURE(S): Placement of transvenous implantable cardioverter-defibrillator PERCH MENDER: Lenin Obregon MD, [facility] CUSTOMS AGENT(S): None. INDICATION(S): Ventricular tachycardia PREOPERATIVE DIAGNOSIS: Ischemic Cardiomyopathy ANESTHESIA TYPE: Monitored Anesthesia Care (MAC) CLINICAL HISTORY: Sam Jacob is a very pleasant 70 y.o. male with a severe ischemic cardiomyopathy with a history of syncope and documented ventricular tachycardia who now presents for placement of an implantable cardioverter-defibrillator. The benefits, risks, and alternatives of an implantable cardioverter-defibrillator (ICD) implant were reviewed with the patient using the principles of shared decision-making and utilizing the [place] [employer] ICD CardioSmart Decision Aid. Specific procedural risks discussed included, but were not limited to: vascular injury, bleeding, pneumothorax, and cardiac perforation/tamponade. Long-term risks discussed included, but were not limited to: device/lead failure and/or recall, lead dislodgement with need for subsequent revision, inappropriate ICD discharges, and infection necessitating a system extraction. All questions were answered. DESCRIPTION: After obtaining informed consent, the patient was brought to the EP laboratory in a fasting, nonsedated state. Continuous ECG, noninvasive blood pressure monitoring, and pulse oximetry were initiated. Cardioversion patch electrodes were placed on the patient's chest and back. A grounding patch was applied to the skin. Prophylactic antibiotics were administered prior to incision. In order to define the extrathoracic portion of the subclavian vein and exclude significant venous obstruction or anomalous anatomy, subclavian venography was performed prior to the procedure. Using the patient's peripheral IV(s), contrast was injected and images were recorded. The left subclavian vein and SVC were found to be widely patent. The left chest was prepared and draped in a sterile fashion. Lidocaine 2% was injected in the subcutaneous tissue in the infraclavicular area to provide local anesthesia. An incision was made medial to the deltopectoral groove. The subcutaneous tissue was dissected to the level of the prepectoral fascia. Under fluoroscopic guidance and with the assistance of the images from the venogram, two separate vena punctures were made using a micropuncture access needle and the modified Seldinger technique to access the extrathoracic portion of the subclavian vein. Guidewires were passed and peel-away sheaths were placed and used to advance pacing lead(s) into the circulation. Under fluoroscopic guidance utilizing KELLEY and SAO TOMEAN projections, the right ventricular ICD lead was advanced and positioned along the right ventricular septum and secured to the myocardium via extension of the retractable helix tip. Adequate sensing and pacing parameters were found, and no diaphragmatic stimulation was seen with high-output pacing. The lead was secured to the fascia using nonabsorbable Ethibond sutures. Next, the right atrial lead was advanced and positioned was positioned in the right atrial appendage and secured to the myocardium via extension of the retractable helix tip. Adequate sensing and pacing parameters were found, and no diaphragmatic stimulation was seen with high-output pacing. The lead was secured to the fascia using nonabsorbable Ethibond sutures. A subcutaneous pocket was created. The generator was connected to the leads and placed inside the pocket. The pocket was irrigated with BD Surgiphor antimicrobial solution. An absorbable hemostatic agent was placed into the pocket. The pocket was closed with overlapping layers of 2-0, 3-0, and 4-0 absorbable Vicryl sutures. An Aquacell dressing was applied over the incision site. The patient was taken to the recovery area in stable condition. DEVICE INFORMATION AND PROGRAMMING: Model Serial No. Sensing (mV) Pacing Threshold (V) Impedence (Ohm) RA Lead See Implants See Implants 2.3 0.5 @ 0.4 ms 619 RV Lead 18.5 0.75 @ 0.4 ms 770 Generator Bradyarrhythmia Programming: DDD 60 Tachyarrhythmia Therapy Zones: VT-1 160 (Monitor) / VT-2 190 (ATP/CV) / VF 220 (CV) FINDINGS: Successful placement of implantable cardioverter-defibrillator. SPECIMEN(S): None. ESTIMATED BLOOD LOSS: <5 cc. COMPLICATIONS: None. POSTOPERATIVE DIAGNOSIS: Ischemic Cardiomyopathy Implantable cardioverter-defibrillator in place RECOMMENDATIONS AND FOLLOW-UP: Obtain post implant chest radiograph and device interrogation. May discharge to home if chest radiograph demonstrates stable lead placement and no pneumothorax and device interrogation demonstrates appropriate function. Follow-up: Wound check in 7-10 days. Lenin Obregon MD, [facility] [address] [place] [address], [address], [place] [address] Lenin Obregon MD CV ELECTROPHYSIOLOGY PRO CS Final Result * Cardiology Document Scan (07/17/2025 9:53 AM CDT) Anatomical Region Laterality Modality Other Historical Provider CV CARDIAC SERVICES PROCE DURES Final Result * (ABNORMAL) eGFR (07/16/2025 10:15 AM CDT) eGFR 59(L) >=60 mL/min/1. 73 m2 Comment: Interpretive Data Reference Interval Normal >/= 90 mL/min/1.73m2 Mildly decreased* 60 - 89 mL/min/1.73m2 Mildly to moderately decreased 45 - 59 mL/min/1.73m2 Moderately to severely decreased 30 - 44 mL/min/1.73m2 Severely decreased 15 - 29 mL/min/1.73m2 Kidney Failure < 15 mL/min/1.73m2 *Relative to young adult level Estimated glomerular filtration rate is determined by the 2020 CKD-EPI equation recommended by the National Kidney Foundation (A Unifying Approach to GFR Estimation: Recommendations of the NKF-ASK Task Force on Reassessing the Inclusion of Race in Diagnosing Kidney Disease, JASN 202). The CKD-EPI equation should not be used for patients with unstable renal function and has not been validated in children and those over 70. Current interpretive data was last reviewed 2021. Blood 07/16/2025 10:1 5 AM CDT 07/16/2025 10:15 AM CDT us Lenin Obregon MD LAB BLOOD ORDERABLES Fin al Result [facility] [address] Department [place] [address] * (ABNORMAL) Differential, auto (07/16/2025 10:15 AM CDT) Neutrophil abs 4.07 1.50 - 6.50 K/cumm Imm gran abs 0.02 0.00 - 0.10 K/cumm [facility] Lymphocyte abs 3.63(H) 0.80 - 3.30 K/cumm [facility] Monocyte abs 0.95(H) 0.20 - 0.80 K/cumm [facility] Eosinophil abs 1.06(H) 0.00 - 0.50 K/cumm [facility] Basophil abs 0.11(H) 0.00 - 0.10 K/cumm [facility] Neutrophil pct 41.3 % [facility] Comment: Interpretive Data Percent cell count reference ranges are not reported, since discordance with absolute values may lead to misinterpretation of CBC data. Current Interpretive Data was last revised on 2018. Imm gran pct 0.2 % [facility] Comment: Interpretive Data Percent cell count reference ranges are not reported, since discordance with absolute values may lead to misinterpretation of CBC data. Current Interpretive Data was last revised on 2018. Lymphocyte pct 36.9 % [facility] Comment: Interpretive Data Percent cell count reference ranges are not reported, since discordance with absolute values may lead to misinterpretation of CBC data. Current Interpretive Data was last revised on 2018. Monocyte pct 9.7 % [facility] Comment: Interpretive Data Percent cell count reference ranges are not reported, since discordance with absolute values may lead to misinterpretation of CBC data. Current Interpretive Data was last revised on 2018. Eosinophil pct 10.8 % [facility] Comment: Interpretive Data Percent cell count reference ranges are not reported, since discordance with absolute values may lead to misinterpretation of CBC data. Current Interpretive Data was last revised on 2018. Basophil pct 1.1 % [facility] Comment: Interpretive Data Percent cell count reference ranges are not reported, since discordance with absolute values may lead to misinterpretation of CBC data. Current Interpretive Data was last revised on 2018. Blood 07/16/2025 10:1 5 AM CDT 07/16/2025 10:15 AM CDT Lenin Obregon MD LAB BLOOD ORDERABLES Fin al Result Performing Organization Address [facility]/ZIP Co de Phone Number [facility] [address] [employer] [place], [place] [id number] * (ABNORMAL) CBC with auto differential (07/16/2025 10:15 AM CDT) WBC 9.84 3.80 - 9.90 K/cumm Hgb 17.4 13.0 - 17.5 g/dL [facility] Hct 50.2 38.9 - 50.3 % [facility] Plt 227 150 - 400 K/cumm [facility] MPV 10.1 9.1 - 12.3 fL [facility] RBC 4.75 4.30 - 5.80 M/cumm [facility] MCV 105.7(H) 81.3 - 96.4 fL [facility] MCH 36.6(H) 27.1 - 33.3 pg [facility] MCHC 34.7 32.3 - 35.7 g/dL [facility] RDW CV 13.2 11.1 - 14.9 % [facility] RDW SD 51.8(H) 35.7 - 48.1 fL [facility] NRBC abs 0.00 0.00 - 0.01 K/cumm [facility] Blood 07/16/2025 10:1 5 AM CDT 07/16/2025 10:15 AM CDT Lenin Obregon MD LAB BLOOD ORDERABLES Fin al Result Performing Organization Address [facility]/ZIP Co de Phone Number [facility] [address] Department [place] [address] * Basic metabolic panel (07/16/2025 10:15 AM CDT) Sodium 142 135 - 145 mmol/L Potassium, pl 4.0 3.3 - 4.9 mmol/L [facility] Comment:Hemolyzed; potassium value may be falsely elevated by as much as 0.3 - 0.5 mmol/L. Suggest redraw and reanalysis Chloride 104 97 - 110 mmol/L [facility] CO2 24 22 - 32 mmol/L [facility] Anion gap 14 2 - 15 mmol/L [facility] BUN 13 6 - 25 mg/dL [facility] Creatinine 1.29 0.80 - 1.30 mg/dL [facility] Glucose 106 70 - 199 mg/dL [facility] Comment: Interpretive Data Fasting glucose >/= 126 mg/dl is diagnostic for diabetes. Fasting is defined as no caloric intake for at least 8 hours. Fasting glucose between 100 mg/dl to 125 mg/dl is diagnostic of prediabetes. In a patient with classic symptoms of hyperglycemia or hyperglycemic crisis, a random glucose >/= 200 mg/dl is diagnostic for diabetes. In the absence of unequivocal hyperglycemia, results should be confirmed by repeat testing. The classification and Diagnosis of Diabetes Diabetes Care 202; 46: S19-S40. Current interpretive data was last revised 2022. Calcium 8.7 8.5 - 10.3 mg/dL [facility] Blood 07/16/2025 10:1 5 AM CDT 07/16/2025 10:15 AM CDT us Lenin Obregon MD LAB BLOOD ORDERABLES Fin al Result [facility] [address] Department [place] [address] * ECG 12 lead (07/16/2025 9:38 AM CDT) Impressions Lenin Obregon MD - 07/16/2025 9:38 AM CDT Normal sinus rhythm, IVCD, No ischemic ST or T wave changes. us Lenin Obregon MD ECG ORDERABLES Final Re sult * COLONOSCOPY (01/14/2022 11:51 AM CDT) Anatomical Region Laterality Modality Other Narrative Procedure Note Edmund Gordon MD - 01/14/2022 11:51 AM CDT ENDOSCOPY LAB Patient Name: Sam Jacob Procedure Date: 01/14/2022 11:51 AM Admit Type: Outpatient Room: [facility] Date of : 1955 Instrument Name: [...] Relevant to Health Maintenance Insurance [facility] MEDICARE [facility]ANT[facility] Address: [facility] [address] [place] [address] [facility] MEDICARE ADVANTAGE [facility] TRADITIONAL MEDICARE Advance Directives For more information, please contact: [phone] * Full Code (Latest Code Status on File) Date Activated Date Inactivated Comments 07/25/2025 5:52 PM 07/25/2025 11:59 PM * Full Code Date Activated Date Inactivated Comments 09/15/2021 2:42 PM 09/20/2021 6:16 PM * Full Code Date Activated Date Inactivated Comments 10/13/2019 12:02 PM 10/14/2019 5:29 PM Care Teams Procurement Buyer Relationship Specialty Start Date End Date Hitesh Aguilar DO [address] [place] [address] PCP - General Internal Medicine 07/16/25 Edgar Still MD [address] [place] [address] Referring Physician Cardiology 09/03/21 Darian Villalpando NP [address] [facility] [address] [place] [address] Referring Physician Nurse Practitioner 01/07/24
== END 2025-08-28 09:50 | disposition home or self-care (01) ==
PROVIDERS: PCP Internal Medicine; Visit Provider Internal Medicine Cardiovascular Disease
DX: I51.9 Heart disease, unspecified (principal)
CPT/HCPCS: 93306

== ENCOUNTER 2025-09-10 13:26 | Outpatient (CLI) | payer MEDICARE, SELFPAY ==
--- NOTE | 2025-09-26 12:05 | WPDHOLTEREM ---
Holter/Event Monitor Holter/Event Monitor Date of procedure: 09/10/25 Holter/Event Procedure: 3-7 Day Holter Monitor Indications: PVC Conclusion: 1. 7 days holter monitor on 09/10/25. 2. Predominant rhythm is sinus rhythm. HR range 59-127 bpm; average 72 bpm. 3. There are rare premature supraventricular complexes and rare supraventricular couplets. There 1 episode of supraventricular tachycardia at 109 bpm lasting 6 beats. 4. There are frequent premature ventricular complexes at 17%, rare ventricular couplets, rare ventricular triplets, longest ventricular bigeminy was 13 minutes and 19 seconds, and longest ventricular trigeminy was 2 minutes and 15 seconds. There is 1 episode of ventricular tachycardia at 126 bpm lasting 4 beats. 5. No significant pauses greater than 3 seconds. 6. No symptoms available for correlation.
== END 2025-09-10 13:27 | disposition home or self-care (01) ==
PROVIDERS: PCP Internal Medicine; Visit Provider Internal Medicine Cardiovascular Disease
DX: I47.20 Ventricular tachycardia, unspecified (principal)
CPT/HCPCS: 93242

== ENCOUNTER 2025-10-04 12:47 | Outpatient (CLI) | payer MEDICARE, SELFPAY ==
[2025-10-04 13:39] LABS: Hematocrit 45.9 % (42.0-52.0); Hemoglobin 16.1 g/dL (14.0-18.0); Immature Granulocyte Percent A 0.3 % (0-0.5); Lymphocytes Absolute Auto 3.02 K/mm3 (0.9-3.2); Mean Corpuscular HGB Conc 35.1 g/dl (32-36); Mean Corpuscular Hemoglobin 35.9 pg (26-34); Mean Corpuscular Volume 102.2 fl (80-100); Nucleated Red Blood Cells Absolute Auto 0.000 K/mm3 (0.0-0.012); Nucleated Red Blood Cells Perc 0.0 % (0.0-0.2); Platelet Count Result 205 k/mm3 (150-375); Red Blood Count 4.49 M/mm3 (4.6-6.20); White Blood Count 8.7 K/mm3 (4.5-10.0)
[2025-10-09 10:08] LABS: I006-IgE Cockroach, German <0.10 kU/L (Class 0); T006-IgE Cedar, Mountain <0.10 kU/L (Class 0); T007-IgE Oak, White 0.17 kU/L (Class 0/I); T008-IgE Elm, American 0.12 kU/L (Class 0/I); T015-IgE Ash, White <0.10 kU/L (Class 0); T022-IgE Pecan, Hickory 0.13 kU/L (Class 0/I); W001-IgE Ragweed, Short 2.35 kU/L (Class III); W011-IgE Thistle, Russian 0.13 kU/L (Class 0/I); W014-IgE Pigweed, Common 0.11 kU/L (Class 0/I); W016-IgE Rough Marshelder <0.10 kU/L (Class 0)
== END 2025-10-04 12:48 | disposition home or self-care (01) ==
PROVIDERS: PCP Internal Medicine; Visit Provider Nurse Practitioner Family
DX: J45.909 Unspecified asthma, uncomplicated (principal)
CPT/HCPCS: 36415; 82785; 85025; 86003